=== PATIENT | female | born 1965 | race Caucasian/White ===

== ENCOUNTER 2016-11-16 11:32 | Inpatient (IN) | payer BC, OTHER ==
[2016-11-16] MEDS ORDERED: NITROGLYCERIN SL TABS 0.4 MG TAB SUBLINGUAL STA ×3 (11:56)
[2016-11-16] MEDS ORDERED: ASPIRIN 81 MG CHEW PO STA (11:56)
--- NOTE | 2016-11-16 11:57 | ED ---
General Adult HPI - General Chief complaint: Chest Pain Stated complaint: Chest pain Time Seen by Provider: 11/16/16 11:45 Source: patient, RN notes reviewed Mode of arrival: wheelchair Limitations: no limitations - History of Present Illness Initial comments: Patient is a pleasant 51-year-old female presenting to the emergency department complaining of chest discomfort. Patient has had intermittent symptoms over the past one to 2 weeks. Discomfort is sharp and usually only last for a couple of minutes. Discomfort has been fairly persistent for the past couple of hours now. Discomfort is 7/10. No associated dyspnea, nausea, or diaphoresis. There is some radiation towards the neck. No history of similar symptoms previously. Patient admits to feeling somewhat anxious regarding this. No leg pain or swelling. No cough or fever. - Related Data Home Medications Medication Instructions Recorded Confirmed Hydrocodone/Acetaminophen 1 tab PO TID 03/08/15 11/16/16 [Hydrocodon-Acetaminophn 10-325] Omeprazole 20 mg PO DAILY 03/08/15 11/16/16 Ascorbic Acid [Vitamin C] 500 mg PO DAILY 11/16/16 11/16/16 Lisinopril [Zestril] 20 mg PO DAILY 11/16/16 11/16/16 Meloxicam [Mobic] 15 mg PO DAILY 11/16/16 11/16/16 Godwin-3 Fatty Acids [Godwin-3] 1,000 mg PO DAILY 11/16/16 11/16/16 Pravastatin Sodium [Pravachol] 10 mg PO HS 11/16/16 11/16/16 Vitamin B Complex 1 cap PO DAILY 11/16/16 11/16/16 Vitamin E 100 unit PO DAILY 11/16/16 11/16/16 Previous Rx's Medication Instructions Recorded Aspirin 81 mg PO DAILY #90 chewable 03/11/15 Allergies Allergy/AdvReac Type Severity Reaction Status Date / Time codeine Allergy Dyspnea Verified 11/16/16 12:20 penicillin V Allergy Swelling Verified 11/16/16 12:20 Review of Systems ROS Statement: Those systems with pertinent positive or pertinent negative responses have been documented in the HPI. ROS Other: All systems not noted in ROS Statement are negative. Constitutional: Denies: fever Eyes: Denies: eye pain ENT: Denies: ear pain Respiratory: Denies: cough, dyspnea Cardiovascular: Reports: chest pain. Denies: palpitations Endocrine: Denies: fatigue Gastrointestinal: Denies: abdominal pain Genitourinary: Denies: dysuria Musculoskeletal: Denies: back pain Skin: Denies: rash Neurological: Denies: weakness Psychiatric: Reports: anxiety Past Medical History Past Medical History: No Reported History History of Any Multi-Drug Resistant Organisms: None Reported Past Surgical History: Cholecystectomy, Hysterectomy Past Anesthesia/Blood Transfusion Reactions: No Reported Reaction Past Psychological History: No Psychological Hx Reported Smoking Status: Current every day smoker Past Alcohol Use History: Occasional Past Drug Use History: None Reported - Past Family History Father Additional Family Medical History / Comment(s): triple bypass, stents Mother Family Medical History: Hypertension Brother(s) Additional Family Medical History / Comment(s): heart attacks, stents General Exam Limitations: no limitations General appearance: alert, in no apparent distress Head exam: Present: atraumatic Eye exam: Present: normal appearance, PERRL ENT exam: Present: normal oropharynx Neck exam: Present: normal inspection Respiratory exam: Present: normal lung sounds bilaterally. Absent: chest wall tenderness Cardiovascular Exam: Present: regular rate, normal rhythm Expanded Peripheral pulses: 2+: Radial (R), Radial (L), Posterior Tibialis (R), Posterior Tibialis (L) GI/Abdominal exam: Present: soft. Absent: tenderness Extremities exam: Present: normal inspection. Absent: pedal edema, calf tenderness Neurological exam: Present: alert Psychiatric exam: Present: normal affect, normal mood Skin exam: Absent: rash Course Vital Signs 11/16/16 11/16/16 11/16/16 11:33 12:23 12:54 Temperature 97.7 F Pulse Rate 79 91 72 Respiratory 17 18 18 Rate Blood Pressure 144/67 135/65 135/71 O2 Sat by Pulse 100 97 98 Oximetry EKG Findings - EKG Comments: EKG Findings:: Normal sinus rhythm at 65. VA 124. QRS 128. QT 438. QTC 455. Right axis. Right bundle branch block. No acute ST change. Medical Decision Making - Medical Decision Making Patient examined and resting comfortably in bed. Patient complains of headache following nitroglycerin. Patient states discomfort intermittent. Patient updated on results and plan. Case was earlier discussed with Dr. andrade, who will admit for [facility]. - Lab Data Result diagrams: 11/16/16 12:15 11/16/16 12:15 Lab Results 11/16/16 11/16/16 11/16/16 Range/Units 12:15 12:15 12:15 WBC 7.3 (3.8-10.6) k/uL RBC 4.68 (3.80-5.40) m/uL Hgb 14.1 (11.4-16.0) gm/dL Hct 41.8 (34.0-46.0) % MCV 89.3 (80.0-100.0) fL MCH 30.2 (25.0-35.0) pg MCHC 33.8 (31.0-37.0) g/dL RDW 13.0 (11.5-15.5) % Plt Count 240 (150-450) k/uL Neutrophils % 69 % Lymphocytes % 23 % Monocytes % 5 % Eosinophils % 1 % Basophils % 0 % Neutrophils # 5.1 (1.3-7.7) k/uL Lymphocytes # 1.6 (1.0-4.8) k/uL Monocytes # 0.4 (0-1.0) k/uL Eosinophils # 0.1 (0-0.7) k/uL Basophils # 0.0 (0-0.2) k/uL PT (9.0-12.0) sec INR (<1.1) APTT (22.0-30.0) sec D-Dimer (<0.60) mg/L FEU Sodium 143 (137-145) mmol/L Potassium 4.1 (3.5-5.1) mmol/L Chloride 106 (98-107) mmol/L Carbon Dioxide 23 (22-30) mmol/L Anion Gap 14 mmol/L BUN 12 (7-17) mg/dL Creatinine 0.47 L (0.52-1.04) mg/dL Est GFR (MDRD) Af Amer >60 (>60 ml/min/1.73 sqM) Est GFR (MDRD) Non-Af >60 (>60 ml/min/1.73 sqM) Glucose 148 H (74-99) mg/dL Calcium 9.8 (8.4-10.2) mg/dL Magnesium 2.0 (1.6-2.3) mg/dL Total Bilirubin 0.8 (0.2-1.3) mg/dL AST 15 (14-36) U/L ALT 34 (9-52) U/L Alkaline Phosphatase 75 (38-126) U/L Total Creatine Kinase 39 (30-135) U/L CK-MB (CK-2) <0.2 (0.0-2.4) ng/mL CK-MB (CK-2) Rel Index Troponin I <0.012 (0.000-0.034) ng/mL Total Protein 7.4 (6.3-8.2) g/dL Albumin 4.9 (3.5-5.0) g/dL 11/16/16 Range/Units 12:15 WBC (3.8-10.6) k/uL RBC (3.80-5.40) m/uL Hgb (11.4-16.0) gm/dL Hct (34.0-46.0) % MCV (80.0-100.0) fL MCH (25.0-35.0) pg MCHC (31.0-37.0) g/dL RDW (11.5-15.5) % Plt Count (150-450) k/uL Neutrophils % % Lymphocytes % % Monocytes % % Eosinophils % % Basophils % % Neutrophils # (1.3-7.7) k/uL Lymphocytes # (1.0-4.8) k/uL Monocytes # (0-1.0) k/uL Eosinophils # (0-0.7) k/uL Basophils # (0-0.2) k/uL PT 10.5 (9.0-12.0) sec INR 1.0 (<1.1) APTT 23.6 (22.0-30.0) sec D-Dimer 0.19 (<0.60) mg/L FEU Sodium (137-145) mmol/L Potassium (3.5-5.1) mmol/L Chloride (98-107) mmol/L Carbon Dioxide (22-30) mmol/L Anion Gap mmol/L BUN (7-17) mg/dL Creatinine (0.52-1.04) mg/dL Est GFR (MDRD) Af Amer (>60 ml/min/1.73 sqM) Est GFR (MDRD) Non-Af (>60 ml/min/1.73 sqM) Glucose (74-99) mg/dL Calcium (8.4-10.2) mg/dL Magnesium (1.6-2.3) mg/dL Total Bilirubin (0.2-1.3) mg/dL AST (14-36) U/L ALT (9-52) U/L Alkaline Phosphatase (38-126) U/L Total Creatine Kinase (30-135) U/L CK-MB (CK-2) (0.0-2.4) ng/mL CK-MB (CK-2) Rel Index Troponin I (0.000-0.034) ng/mL Total Protein (6.3-8.2) g/dL Albumin (3.5-5.0) g/dL - Radiology Data Radiology results: image reviewed (Chest x-ray shows no acute process.) Disposition Clinical Impression: Unstable angina pectoris Disposition: ADMITTED IP TO THIS HOSP
[2016-11-16 12:37] LABS: Basophils % (A) 0 %; CH 31.4; CHCM 35.4; Eosinophils # (A) 0.1 k/uL (0-0.7); Eosinophils % (A) 1 %; HCT 41.8 % (34.0-46.0); HDW 2.87; HGB 14.1 gm/dL (11.4-16.0); Luc # (Auto) 0.12; Luc % (Auto) 2; Lymphocytes # (A) 1.6 k/uL (1.0-4.8); Lymphocytes % (A) 23 %; MCH 30.2 pg (25.0-35.0); MCHC 33.8 g/dL (31.0-37.0); MCV 89.3 fL (80.0-100.0); Mean Platelet Volume 8.7; Monocytes # (A) 0.4 k/uL (0-1.0); Monocytes % (A) 5 %; Neutrophils # (A) 5.1 k/uL (1.3-7.7); Neutrophils % (A) 69 %; RBC 4.68 m/uL (3.80-5.40); WBC 7.3 k/uL (3.8-10.6); WBC (Perox) 7.25
--- NOTE | 2016-11-16 12:48 | XR ---
EXAMINATION TYPE: XR chest 2V DATE OF EXAM: 11/16/2016 12:44 PM COMPARISON: Prior chest x-ray March 07, 2015 HISTORY: Chest pain for 10 days. TECHNIQUE: Frontal and lateral views of the chest are obtained. FINDINGS: There is no focal air space opacity, pleural effusion, or pneumothorax seen. The cardiac silhouette size is within normal limits with atherosclerotic thoracic aorta. The osseous structures are intact. IMPRESSION: No acute pulmonary process. No significant change from prior.
[2016-11-16 12:50] LABS: ALT 34 U/L (9-52); AST 15 U/L (14-36); Alkaline Phosphatase 75 U/L (38-126); Anion Gap 14 mmol/L; Blood Urea Nitrogen 12 mg/dL (7-17); Calcium 9.8 mg/dL (8.4-10.2); Carbon Dioxide 23 mmol/L (22-30); Chloride 106 mmol/L (98-107); Glucose 148 mg/dL (74-99); Non-African American GFR(MDRD) >60 (>60 ml/min/1.73 sqM); Partial Thromboplastin Time 23.6 sec (22.0-30.0); Potassium 4.1 mmol/L (3.5-5.1); Prothrombin Time 10.5 sec (9.0-12.0); Sodium 143 mmol/L (137-145); Total Bilirubin 0.8 mg/dL (0.2-1.3); Total Protein 7.4 g/dL (6.3-8.2)
[2016-11-16] MEDS ORDERED: ACETAMINOPHEN TAB 500 MG TAB PO STA (12:52)
[2016-11-16 13:04] LABS: Creatine Kinase 39 U/L (30-135)
[2016-11-16 13:18] LABS: Creatine Kinase MB <0.2 ng/mL (0.0-2.4); Troponin I <0.012 ng/mL (0.000-0.034)
[2016-11-16] MEDS ORDERED: HEPARIN SODIUM,PORCINE 5,000 UNIT/ML 1 ML VIAL IV PRN (13:53)
[2016-11-16] MEDS ORDERED: NITROGLYCERIN SL TABS 0.4 MG TAB SUBLINGUAL PRN (13:53)
[2016-11-16] MEDS ORDERED: HEPARIN SODIUM,PORCINE 5,000 UNIT/ML 1 ML VIAL IV ONE (13:53)
[2016-11-16] MEDS ORDERED: HEPARIN SODIUM,PORCINE/D5W PMX 25,000 UNIT in DEXTROSE/WATER 1 500ML.BAG IV SCH (14:00)
[2016-11-16] MEDS ORDERED: ONDANSETRON 4 MG/2 ML VIAL IVP PRN (14:23)
[2016-11-16] MEDS: MORPHINE SULFATE 4 MG/ML SYRINGE IV STA ×2 (14:24→15:32)
[2016-11-16 18:49] LABS: Creatine Kinase 33 U/L (30-135)
[2016-11-16 19:05] LABS: Creatine Kinase MB <0.2 ng/mL (0.0-2.4); Troponin I <0.012 ng/mL (0.000-0.034)
[2016-11-16] MEDS: PRAVASTATIN SODIUM 20 MG TAB PO SCH (20:44)
[2016-11-16] MEDS: HYDROcodone/APAP 10-325MG 1 EACH TAB PO SCH ×2 (20:44→23:44)
[2016-11-16] MEDS: NITROGLYCERIN OINT 1 INCH/GM PACKET TOPICAL SCH (20:48)
--- NOTE | 2016-11-16 22:32 | CT ---
EXAMINATION TYPE: CT brain wo con DATE OF EXAM: 11/16/2016 10:27 PM COMPARISON: NONE HISTORY: Headache today. CT DLP: 1204.00 mGycm Automated exposure control for dose reduction was used. FINDINGS: Ventricles have normal size. There is no mass effect nor midline shift. There is no sign of intracran ial hemorrhage. There is mucosal thickening in the right maxillary sinus. Calvarium is intact. IMPRESSION: Right maxillary sinusitis. Negative CT scan of the brain.
[2016-11-16] MEDS: HYDROmorphone 1 MG/ML 1 ML SYRINGE IVP PRN (22:50)
[2016-11-17 00:43] LABS: Creatine Kinase 35 U/L (30-135)
[2016-11-17 00:55] LABS: Creatine Kinase MB <0.2 ng/mL (0.0-2.4); Troponin I <0.012 ng/mL (0.000-0.034)
[2016-11-17] MEDS: NITROGLYCERIN OINT 1 INCH/GM PACKET TOPICAL SCH ×2 (01:43→06:43)
[2016-11-17] MEDS: HYDROmorphone 1 MG/ML 1 ML SYRINGE IVP PRN ×5 (02:25→21:47)
[2016-11-17 07:29] LABS: Mean Platelet Volume 7.9
[2016-11-17 07:46] LABS: Cholesterol 190 mg/dL (<200); HDL Cholesterol 40 mg/dL (40-60); Triglycerides 305 mg/dL (<150)
[2016-11-17] MEDS ORDERED: ASPIRIN 325 MG TAB PO SCH (09:00)
[2016-11-17] MEDS ORDERED: NON-FORMULARY DRUG (Omega-3 Fatty Acids [Omega-3] 1,000 MG) PO SCH (09:00)
[2016-11-17] MEDS ORDERED: MELOXICAM 7.5 MG TAB PO SCH (09:00)
--- NOTE | 2016-11-17 11:08 | CONS ---
DATE OF CONSULTATION: CHIEF COMPLAINT: Chest pain. Drea is a 51-year-old lady who is admitted to the hospital with chest pain. She describes it as intermittent episodes of chest discomfort that has been going on for the last 2 weeks, on and off, sharp, lasts for a few minutes, 7 out of 10 in intensity at its worst. No associated dyspnea, diaphoresis or nausea. She is admitted to hospital and ruled out for myocardial infarction and at the time of my evaluation, her predominant symptoms seem to be headache. She had an EKG done that shows sinus rhythm with right bundle branch block, which is similar to her baseline EKG. Three sets of cardiac enzymes have been negative. LDL cholesterol is 89. Past medical history is significant for dyslipidemia, hypertension, gastroesophageal reflux disease. ALLERGIES: Allergic to CODEINE and PENICILLIN. Family history is negative for premature coronary artery disease. SOCIAL HISTORY: She denies smoking, EtOH abuse, or drug abuse. REVIEW OF SYSTEMS: HEENT: Unremarkable. CARDIAC: As described above. RESPIRATORY: Negative. GI: Negative. GENITOURINARY: Negative. ALLERGY/IMMUNOLOGY: Negative. SKIN: Negative. MUSCULOSKELETAL: Significant for arthritis. PSYCHOSOCIAL: Negative. ENDOCRINE: Negative. HEMATOLOGICAL: Negative. DERM: Negative. CONSTITUTIONAL: Negative. ONCOLOGICAL: Negative. The rest of the system review is not relevant. On exam, comfortable at rest. Vital signs are stable. There is no jugular venous distention. Chest exam reveals good air entry bilaterally. Heart exam reveals first and second heart sounds. No gallop. No murmur. Abdomen is soft, nontender. Exam of the extremities did not reveal any edema. Peripheral pulses are felt. COOK HELPER exam did not reveal focal neurological deficits. Labs show that 3 sets of cardiac enzymes are negative. EKG shows sinus rhythm with right bundle branch block. ASSESSMENT: 1. Chest pain. 2. Dyslipidemia. 3. Hypertension. 4. Headache. PLAN: Myocardial infarction is ruled out. Her EKG is similar to her baseline EKG. She had a cardiac catheterization 2 years ago that showed a 60% stenosis involving a diagonal branch. She has been on medical therapy since. Once her headache resolves, she will need a stress test and if the stress test is negative she can be discharged home. If it is abnormal, I am going to ask Dr. Sesay my partner to perform a cardiac catheterization on her. She was on heparin, this has since been stopped. I will obtain a 2-D echo.
[2016-11-17] MEDS: HYDROcodone/APAP 10-325MG 1 EACH TAB PO SCH ×2 (11:26→16:51)
[2016-11-17] MEDS: B COMPLEX-VIT C-VIT E-ZINC 1 EACH TAB PO SCH (11:27)
[2016-11-17] MEDS: ASCORBIC ACID 500 MG TAB PO SCH (11:27)
[2016-11-17] MEDS: PANTOPRAZOLE 40 MG TABLET PO SCH (11:28)
[2016-11-17] MEDS: VITAMIN E (DL,TOCOPHERYL ACET) 400 UNIT CAP PO SCH (11:29)
[2016-11-17] MEDS: LISINOPRIL 20 MG TAB PO SCH (11:29)
--- NOTE | 2016-11-17 11:55 | ECHOF ---
Referral Reason:cp MEASUREMENTS -------- HEIGHT: 180.3 cm WEIGHT: 82.1 kg BP: 111/55 IVSd: 1.1 cm (0.6 - 1.1) LVIDd: 3.0 cm (3.9 - 5.3) LVPWd: 1.1 cm (0.6 - 1.1) IVSs: 1.2 cm LVIDs: 1.6 cm LVPWs: 1.6 cm Ao Diam: 3.6 cm (2.0 - 3.7) AV Cusp: 2.0 cm (1.5 - 2.6) LA Diam: 3.0 cm (2.7 - 3.8) MV EXCURSION: 18.395 mm (> 18.000) MV EF SLOPE: 106 mm/s (70 - 150) EPSS: 1.4 cm MV E Baldo: 0.60 m/s MV DecT: 236 ms MV A Baldo: 0.60 m/s MV E/A Ratio: 1.00 RAP: 5.00 mmHg RVSP: 15.84 mmHg FINDINGS -------- Sinus rhythm. This was a technically adequate study. Left ventricular wall thickness is normal. Overall left ventricular systolic function is normal with, an EF between 55 - 60 %. The right ventricle is normal in size and function. The left atrium is normal in size. The right atrium is normal in size. The aortic valve was not well visualized. The mitral valve leaflets are mildly thickened. Mild mitral regurgitation is present. Mild tricuspid regurgitation present. The right ventricular systolic pressure, as measured by Doppler, is 15.84mmHg. Pulmonic valve appears structurally normal. The aortic root size is normal. The pericardium is normal. CONCLUSIONS -------- 1. Sinus rhythm. 2. Mild mitral regurgitation is present. 3. Mild tricuspid regurgitation present. 4. The right ventricular systolic pressure, as measured by Doppler, is 15.84mmHg. 5. Pulmonic valve appears structurally normal. 6. The aortic root size is normal. 7. The pericardium is normal. 8. This was a technically adequate study. 9. Left ventricular wall thickness is normal. 10. Overall left ventricular systolic function is normal with, an EF between 55 - 60 %. 11. The right ventricle is normal in size and function. 12. The left atrium is normal in size. 13. The right atrium is normal in size. 14. The aortic valve was not well visualized. 15. The mitral valve leaflets are mildly thickened. SCIENTIFIC PUBLICATIONS EDITOR: Prudence Johnson RDCS
[2016-11-17] MEDS ORDERED: IBUPROFEN 800 MG TAB PO STA (13:54)
[2016-11-17] MEDS: LEVOFLOXACIN 500 MG TAB PO SCH (15:10)
--- NOTE | 2016-11-17 16:47 | P.HPIM ---
History of Present Illness H&P Date: 11/17/16 Chief Complaint: Headache This is a 51-year-old female with past medical history noted below who presented to the emergency room with sudden onset headache that started all of a sudden when she woke up from her sleep. Patient's describing her headache as throbbing and 10 out of 10 in severity. She never had any problems with headache in the past and was never diagnosed with migraine headache. She said that her headache was a problem as she denies recent trauma or fall. She said that the light is bothering her. She was evaluated in the emergency room and a computed tomography scan of the brain showed no acute intracranial findings. Patient said that along with her headache she started having some chest pain and discomfort. She was evaluated in the emergency room and 12 leads EKG showed no acute ischemic changes. Serial troponin were negative. Patient had a left heart catheterization in March 2015 showing no significant coronary artery disease. She was managed medically. Review of Systems Review of system: 14 points review of systems were obtained and were negative except to what were mentioned in the HPI. 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 Past Drug Use History: None Reported - Past Family History Father Additional Family Medical History / Comment(s): triple bypass, stents Mother Family Medical History: Hypertension Brother(s) Additional Family Medical History / Comment(s): heart attacks, stents Medications and Allergies Home Medications Medication Instructions Recorded Confirmed Type Hydrocodone/Acetaminophen 1 tab PO TID 03/08/15 11/16/16 History [Hydrocodon-Acetaminophn 10-325] Omeprazole 20 mg PO DAILY 03/08/15 11/16/16 History Ascorbic Acid [Vitamin C] 500 mg PO DAILY 11/16/16 11/16/16 History Lisinopril [Zestril] 20 mg PO DAILY 11/16/16 11/16/16 History Meloxicam [Mobic] 15 mg PO DAILY 11/16/16 11/16/16 History [place]-3 Fatty Acids [Conowingo-3] 1,000 mg PO DAILY 11/16/16 11/16/16 History Pravastatin Sodium [Pravachol] 10 mg PO HS 11/16/16 11/16/16 History Vitamin B Complex 1 cap PO DAILY 11/16/16 11/16/16 History Vitamin E 100 unit PO DAILY 11/16/16 11/16/16 History Allergies Allergy/AdvReac Type Severity Reaction Status Date / Time codeine Allergy Dyspnea Verified 11/16/16 12:20 penicillin V Allergy Swelling Verified 11/16/16 12:20 Physical Exam Vitals: Vital Signs Temp Pulse Resp BP Pulse Ox 11/17/16 15:24 97.9 F 68 16 114/58 95 11/17/16 12:00 98.4 F 95 18 120/71 95 11/17/16 08:00 98.2 F 65 16 111/55 93 L 11/17/16 04:00 97.7 F 83 16 115/56 95 11/17/16 00:00 97.7 F 62 16 104/51 95 11/16/16 20:00 98.0 F 51 L 16 113/54 96 11/16/16 17:17 97.8 F 75 16 117/72 98 Intake and Output 11/17/16 11/17/16 11/17/16 06:59 14:59 22:59 Other: # Voids 1 Weight 82.282 kg General: The patient is awake and alert, in no distress, and does not appear acutely ill. Eye: extra-ocular movements are intact; there is normal conjunctiva bilaterally. . Neck: The neck is supple, there is no tenderness or JVD. Cardiovascular: Normal S1-S2, no S3-S4, no murmurs. Respiratory: Lungs clear to auscultation bilaterally with no wheezes rhonchi or rales. Gastrointestinal: Abdomen is soft, nontender, nondistended, with no organomegaly. . Musculoskeletal: Normal ROM, no tenderness, There is no pedal edema. Neurological: There are no obvious motor or sensory deficits. Speech is normal. Skin: Skin is warm and dry and no rashes or lesions are noted. Results CBC & Chem 7: 11/17/16 07:02 11/16/16 12:15 Labs: Abnormal Lab Results - Last 24 Hours (Table) 11/16/16 11/17/16 Range/Units 18:03 07:02 APTT 34.4 H (22.0-30.0) sec Triglycerides 305 H (<150) mg/dL Thrombosis Risk Factor Assmnt - Choose All That Apply Any of the Below Risk Factors Present?: Yes Each Factor Represents 1 point: Age 41-60 years, Obesity (BMI >25) Other Risk Factors: No Other congenital or acquired thrombophilia - If yes, enter type in comment: No Thrombosis Risk Factor Assessment Total Risk Factor Score: 2 Thrombosis Risk Factor Assessment Level: Low Risk Assessment and Plan Plan: 1. Intractable headache: Exact etiology unclear. Computed tomography scan of the brain showed no acute intracranial process. Blood pressure within acceptable range. I will consult neurology for further evaluation. Discontinue meloxicam and start Toradol IV every 6 hours. Continue Tylenol as needed. May consider follow-up computed tomography scan if not improving clinically. 2. Right maxillary sinusitis: Probably chronic. Started on Levaquin as patient has penicillin ALLERGY 3. Chest pain: Mostly atypical in nature. Twelve-lead EKG showed no acute ischemic changes. Seen and evaluated by cardiology. Troponins are negative. Echocardiogram showed preserved ejection fraction with no significant valvular abnormalities 4. Mixed hyperlipidemia 5. DVT prophylaxis with subcu heparin
[2016-11-17] MEDS: KETOROLAC 30 MG/ML 1 ML VIAL IVP SCH (17:51)
--- NOTE | 2016-11-17 19:09 | P.CNNES ---
History of Present Illness Consult date: 11/17/16 Reason for Consult: Patient with intractable headache. History of Present Illness: This patient is a 51-year-old right-handed white female who states that she awoke yesterday early in the morning with a severe intractable headache pain. She denies having any previous history of headaches or migraines. This is the first and headache that she is experienced since giving childbirth. Patient states the headache was intense and mostly in the bifrontal and bitemporal area. On a scale of 1-10 she rated the headache 10 over 10 in intensity. She did not expanse any nausea or vomiting. She decided to come to the emergency room as the headaches were sudden and quite intense. She was seen in the emergency room by Dr. Lazaro. She was sent for a computed tomography scan of the brain which was reported negative for any acute changes. She was admitted to hospital for further evaluation. Patient states she has no previous history of migraine headaches. There is no family history of aneurysms. She states the headache has remained intense despite being given some pain medications which include Dilantin and tramadol. The headaches have lessened only to some degree and is reported to be 6/10 in intensity. Due to the severity of the headache pain she was admitted to Hospital. The patient denies any previous history of severe headaches of this nature. She does mention that 2 months ago she was working and did have someone grab her neck while working accidentally. She did have a diagnosis of cervical strain at that time. She denies any weakness in the arms or radiating pain down either arm at this time. Patient is now admitted and neurology has been consulted for further evaluation and recommendations. Review of Systems Constitutional: Denies chills, Denies fever Eyes: denies blurred vision, denies pain Ears, nose, mouth and throat: Denies headache, Denies sore throat Cardiovascular: Denies chest pain, Denies shortness of breath Respiratory: Denies cough Gastrointestinal: Denies abdominal pain, Denies diarrhea, Denies nausea, Denies vomiting Genitourinary: Denies dysuria, Denies hematuria Musculoskeletal: Denies myalgias Integumentary: Denies pruritus, Denies rash Neurological: Reports headaches, Denies numbness, Denies weakness Psychiatric: Denies anxiety, Denies depression Endocrine: Denies fatigue, Denies weight change Past Medical History Past Medical History: Chest Pain / Angina, Hyperlipidemia, Hypertension, Osteoarthritis (OA) Additional Past Medical History / Comment(s): "ARTHIRTIS IN MY BACK", "I HAD 1 LOOSE STOOL TODAY" History of Any Multi-Drug Resistant Organisms: None Reported Past Surgical History: Cholecystectomy, Heart Catheterization, Hysterectomy, Tonsillectomy Additional Past Surgical History / Comment(s): CYST REMOVED FROM ABD DURING HYSTERECTOMY SX Past Anesthesia/Blood Transfusion Reactions: No Reported Reaction Past Psychological History: No Psychological Hx Reported Smoking Status: Current every day smoker Past Alcohol Use History: Occasional Additional Past Alcohol Use History / Comment(s): STARTED SMOKING AT AGE 15, SMOKES 1/2 PPD. Past Drug Use History: None Reported - Past Family History Father Additional Family Medical History / Comment(s): triple bypass, stents Mother Family Medical History: Hypertension Brother(s) Additional Family Medical History / Comment(s): heart attacks, stents Medications and Allergies Home Medications Medication Instructions Recorded Confirmed Type Hydrocodone/Acetaminophen 1 tab PO TID 03/08/15 11/16/16 History [Hydrocodon-Acetaminophn 10-325] Omeprazole 20 mg PO DAILY 03/08/15 11/16/16 History Ascorbic Acid [Vitamin C] 500 mg PO DAILY 11/16/16 11/16/16 History Lisinopril [Zestril] 20 mg PO DAILY 11/16/16 11/16/16 History Meloxicam [Mobic] 15 mg PO DAILY 11/16/16 11/16/16 History Verona-3 Fatty Acids [Verona-3] 1,000 mg PO DAILY 11/16/16 11/16/16 History Pravastatin Sodium [Pravachol] 10 mg PO HS 11/16/16 11/16/16 History Vitamin B Complex 1 cap PO DAILY 11/16/16 11/16/16 History Vitamin E 100 unit PO DAILY 11/16/16 11/16/16 History Allergies Allergy/AdvReac Type Severity Reaction Status Date / Time codeine Allergy Dyspnea Verified 11/16/16 12:20 penicillin V Allergy Swelling Verified 11/16/16 12:20 Physical Examination - Vital Signs Vital Signs: Vital Signs Temp Pulse Resp BP Pulse Ox 11/17/16 15:24 97.9 F 68 16 114/58 95 11/17/16 12:00 98.4 F 95 18 120/71 95 11/17/16 08:00 98.2 F 65 16 111/55 93 L 11/17/16 04:00 97.7 F 83 16 115/56 95 11/17/16 00:00 97.7 F 62 16 104/51 95 11/16/16 20:00 98.0 F 51 L 16 113/54 96 Intake and Output 11/17/16 11/17/16 11/17/16 06:59 14:59 22:59 Other: # Voids 1 Weight 82.282 kg - Constitutional General appearance: average body habitus, cooperative - EENT EENT: mucous membranes moist - Respiratory Respiratory: lungs clear, normal breath sounds - Cardiovascular Cardiovascular: regular rate, normal S1, normal S2 Extremities: no peripheral edema bilaterally - Gastrointestinal Gastrointestinal: normoactive bowel sounds - Integumentary Integumentary: normal (Using this tablet only reason I think he) - Neurologic Cranial nerve examination: PERRL, EOMI, VFF, V1/V2/V3 grossly intact, tongue midline, intact gag reflex, intact corneal reflex, normal palatal elevation Speech examination: intact Sensorimotor examination: intact Detailed motor examination: grossly full strength in all extremities Motor examination - right side: 5/5: biceps, triceps, wrist flexion, wrist extension, lunch cook, hip flexors, knee extensors, dorsiflexion, toe extension (EHL) , plantarflexion Motor examination - left side: 5/5: biceps, triceps, wrist flexion, wrist extension, lunch cook, hip flexors, knee extensors, dorsiflexion, toe extension (EHL) , plantarflexion Detailed sensory examination: intact Reflex and gait examination: intact Reflexes: 1+: ankle, bicep, knee, tricep - Musculoskeletal Musculoskeletal: no pain - Psychiatric Psychiatric: mood/affect appropriate, cooperative Results - Laboratory Findings CBC and BMP: 11/17/16 07:02 11/16/16 12:15 Abnormal Lab Findings: Abnormal Labs 11/16/16 11/17/16 18:03 07:02 APTT 34.4 H Triglycerides 305 H Assessment and Plan (1) Occipital neuritis Status: Acute Code(s): M54.81 - OCCIPITAL NEURALGIA (2) Unstable angina pectoris Status: Acute Code(s): I20.0 - UNSTABLE ANGINA Plan: This patient is a 51-year-old female admitted to Hospital intractable headache pain. Neurology was consult for further evaluation. Neurological examination reveals the patient to have bilateral occipital neuritis. We have recommended the patient undergo a occipital nerve block procedure by anesthesia. We would also recommend MRI/MRA of the brain to be done. Computed tomography scan of the brain was reported negative for any acute changes. Patient is advised to apply moist heat to the head and neck region up upon discharge. We will await the occipital nerve block procedure to be done and then she may follow-up with cardiology is recommended. Her overall prognosis at this time remains guarded. Time with Patient: Greater than 30
[2016-11-17] MEDS: ACETAMINOPHEN TAB 325 MG TAB PO PRN (23:04)
[2016-11-18] MEDS: PRAVASTATIN SODIUM 20 MG TAB PO SCH ×2 (00:50→21:59)
[2016-11-18] MEDS: HYDROmorphone 1 MG/ML 1 ML SYRINGE IVP PRN ×6 (00:54→22:00)
[2016-11-18] MEDS: HEPARIN SODIUM,PORCINE 5,000 UNIT/ML 1 ML VIAL SQ SCH ×3 (00:54→21:59)
[2016-11-18] MEDS: KETOROLAC 30 MG/ML 1 ML VIAL IVP SCH ×4 (00:58→18:35)
[2016-11-18] MEDS: HYDROcodone/APAP 10-325MG 1 EACH TAB PO SCH ×4 (00:58→21:59)
[2016-11-18 08:01] LABS: Anion Gap 10 mmol/L; Blood Urea Nitrogen 13 mg/dL (7-17); Calcium 9.5 mg/dL (8.4-10.2); Carbon Dioxide 29 mmol/L (22-30); Chloride 103 mmol/L (98-107); Glucose 145 mg/dL (74-99); Non-African American GFR(MDRD) >60 (>60 ml/min/1.73 sqM); Phosphorous 4.6 mg/dL (2.5-4.5); Potassium 4.5 mmol/L (3.5-5.1); Sodium 142 mmol/L (137-145)
[2016-11-18 08:54] LABS: Basophils % (A) 0 %; CH 31.1; CHCM 33.8; Eosinophils # (A) 0.1 k/uL (0-0.7); Eosinophils % (A) 2 %; HCT 41.1 % (34.0-46.0); HDW 2.82; HGB 13.7 gm/dL (11.4-16.0); Luc # (Auto) 0.24; Luc % (Auto) 4; Lymphocytes # (A) 1.9 k/uL (1.0-4.8); Lymphocytes % (A) 34 %; MCH 30.8 pg (25.0-35.0); MCHC 33.3 g/dL (31.0-37.0); MCV 92.5 fL (80.0-100.0); Mean Platelet Volume 8.4; Monocytes # (A) 0.4 k/uL (0-1.0); Monocytes % (A) 7 %; Neutrophils % (A) 53 %; RBC 4.44 m/uL (3.80-5.40); WBC 5.7 k/uL (3.8-10.6); WBC (Perox) 5.78
[2016-11-18] MEDS ORDERED: BUPIVACAINE (PF) 0.25% 30 ML VIAL ONE (10:10)
[2016-11-18] MEDS ORDERED: TRIAMCINOLONE ACETONIDE 40 MG/ML 1 ML VIAL ONE (10:10)
[2016-11-18] MEDS ORDERED: MIDAZOLAM 2 MG/2 ML VIAL IVP ONE ×2 (10:30→10:33)
[2016-11-18] MEDS ORDERED: fentaNYL (PF) 50 MCG/ML 2 ML AMP IV ONE ×3 (10:30→10:33)
--- NOTE | 2016-11-18 12:11 | P.PCN ---
Date of Procedure: 11/18/16 Procedure(s) Performed: Pre-operative diagnosis: 1- Bilateral occipital neuralgea Post Operative Diagnosis 1- Bilateral occipital neuralgea Procedure: 1- Bilateral occipital nerve block ANESTHESIA: Conscious sedation with Versed. 2 mg and fentanyl 100 micrograms EBL: Minimal PROCEDURE INDICATION: The patient with neck pain and headache secondary to occipital neuralgea unresponsive to conservative treatments. The patient was admitted to [facility] with severe headache, and she was evaluated by a neurologist and he recommended occipital nerve block PROCEDURE DESCRIPTION / TECHNIQUE: The patient was seen and identified in the preoperative area. Risks, benefits, complications, and alternatives were discussed with the patient, the patient agreed to proceed with the procedure and signed the consent. IV was started. Vital signs remained stable throughout the procedure. Patient was taken to the OR and time out was completed. The patient was placed in the pron (sitting ) position on the procedure table. A pillow was placed under the patients chest to increase the cervical interlaminar space. The cervical area and right occiptial area were prepped with alcohol swab. Critical pause was taken. Vital signs were closely monitored during the procedure. Conscious sedation was used during the procedure to decrease patients anxiety. The right occiptal ridge was palpated and was then accessed with a 25 G needle. Then after negative aspiration, 6 ml of the block solution containing 6 ml of PF Buvicaine 0.5% and Kenalog 40 mg was injected. Needle was withdrawn intact. Then the same procedure was repeated on the left side and related the left occipital nerve block, after negative aspiration 6 mL of the block solution containing ropivacaine 0.5% and 40 mg of Kenalog injected after negative aspiration Patient tolerated procedure well. No acute complications. She will follow up with the pain clinic in 2 weeks
[2016-11-18] MEDS: ACETAMINOPHEN TAB 325 MG TAB PO PRN (13:07)
--- NOTE | 2016-11-18 13:43 | P.PN ---
Subjective Patient continues to have severe headache today. She just returned to her room after getting an occipital nerve block. She still rating her headache as 10 out of 10. Objective - Vital Signs Vital signs: Vital Signs Temp 98.5 F 11/18/16 11:15 Pulse 60 11/18/16 11:45 Resp 16 11/18/16 11:15 BP 111/56 11/18/16 11:45 Pulse Ox 98 11/18/16 11:45 Intake & Output 11/17/16 11/18/16 11/18/16 18:59 06:59 18:59 Other: Voiding Method Toilet Toilet # Voids 1 - Exam General: The patient is awake and alert, in no distress Eye: there is normal conjunctiva bilaterally. Neck: The neck is supple, there is no JVD. Cardiovascular: Normal S1-S2, no S3-S4, no murmurs. Respiratory: Lungs clear to auscultation bilaterally Gastrointestinal: Abdomen is soft, nontender Musculoskeletal: There is no pedal edema. Neurological:. Speech is normal. Skin: Skin is warm and dry - Labs CBC & Chem 7: 11/18/16 07:22 11/18/16 07:22 Labs: Abnormal Lab Results - Last 24 Hours (Table) 11/18/16 Range/Units 07:22 Glucose 145 H (74-99) mg/dL Phosphorus 4.6 H (2.5-4.5) mg/dL Assessment and Plan Plan: 1. Intractable headache: Exact etiology unclear. Patient was seen and evaluated by neurology and was thought to have occipital neuritis. She underwent occipital nerve block by pain services this morning. She is scheduled for an MRI of the brain this afternoon. Computed tomography scan of the brain showed no acute intracranial process. Blood pressure within acceptable range. 2. Right maxillary sinusitis: Probably chronic. Started on Levaquin as patient has penicillin ALLERGY 3. Chest pain: Mostly atypical in nature. Twelve-lead EKG showed no acute ischemic changes. Seen and evaluated by cardiology. Troponins are negative. Echocardiogram showed preserved ejection fraction with no significant valvular abnormalities 4. Mixed hyperlipidemia 5. DVT prophylaxis with subcu heparin Plan for today: Increase Dilaudid to 1 mg as needed. Continue Tylenol and Toradol. Awaiting MRI this afternoon. Appreciate neurology recommendations.
--- NOTE | 2016-11-18 14:58 | MR ---
EXAMINATION TYPE: MR angio head wo con DATE OF EXAM: 11/18/2016 2:37 PM COMPARISON: NONE HISTORY: Headaches CONTRAST: None TECHNIQUE: Multiplanar multiecho imaging on a 3.0 [place] magnet is performed through the [place]. 3-D [id number] imaging is performed. Source images are reviewed on the computer in the axi al plane. Reconstructed images rotating on the computer are reviewed. FINDINGS: The internal carotid arteries bifurcate normally into A1 and M1 segments. The A2 segments are normal. Middle cerebral artery branches are normal. Anterior communicating artery is patent. The right posterior communicating artery is patent. The left posterior communicating artery is absent. Vertebrobasilar arteries within the [id number] are normal. Posterior cerebral vasculature is norm al. No suspicious aneurysm or aneurysmal dilatation is evident. No obstructions are identified. No significant flow-limiting stenosis is evident. IMPRESSIONS: 1. NORMAL MRA [place] OF [place].
--- NOTE | 2016-11-18 15:03 | MR ---
EXAMINATION TYPE: MR brain wo con DATE OF EXAM: 11/18/2016 2:50 PM COMPARISON: NONE HISTORY: Headaches, intractable CONTRAST: Performed utilizing 0 mL intravenous MultiHance gadolinium contrast. TECHNIQUE: Multiplanar, multiecho imaging on a 3.0 [place] magnet is performed through the brain. Stud y is not performed within 24 hours of arrival to the hospital. The craniovertebral junction is normal. The pituitary is normal. Diffusion-weighted imaging is performed. Left vertex along the superior gyrus of the right frontal lobe is a small area of hyperintensity. Sma ll cortical ischemic change could be present at this location. Series 305, image 216 Signal within the brain on T2 and inversion recovery weighted sequences appears unremarkable. Ventricles and sulci are appropriate for the patient age. Mucosal thickening is within the right maxillary sinus. Paranasal sinus is thickening is within ethmo id air cells IMPRESSIONS: 1. Punctate hyperintensity at the left vertex gyrus and diffusion weighted imaging could indicate a a cute ischemic area. This is not identified on additional pulse sequences.
[2016-11-18] MEDS: B COMPLEX-VIT C-VIT E-ZINC 1 EACH TAB PO SCH (15:08)
[2016-11-18] MEDS: ASCORBIC ACID 500 MG TAB PO SCH (15:08)
[2016-11-18] MEDS: ASPIRIN 81 MG CHEW PO SCH (15:08)
[2016-11-18] MEDS: PANTOPRAZOLE 40 MG TABLET PO SCH (15:09)
[2016-11-18] MEDS: VITAMIN E (DL,TOCOPHERYL ACET) 400 UNIT CAP PO SCH (15:09)
[2016-11-18] MEDS: LISINOPRIL 20 MG TAB PO SCH (15:09)
[2016-11-18] MEDS: LEVOFLOXACIN 500 MG TAB PO SCH (15:12)
--- NOTE | 2016-11-18 18:30 | P.PN ---
Subjective This patient is a 51-year-old right-handed white female who was seen yesterday for intractable headache pain. She was found to have evidence of bilateral occipital neuritis. She was sent for a occipital nerve block procedure today which was performed by anesthesia this morning. She still continues to complain of severe occipital headache pain. She was sent for MRI of the brain which was completed today. MRI reveals a punctate hyperintensity in the left vertex gyrus. This was seen on diffusion-weighted imaging suggesting possible acute ischemia. We will obtain a carotid Doppler ultrasound to further evaluate for carotid artery stenosis. She is to continue on 1 aspirin daily. We will review the MRI films with radiology. Her current headache symptoms are not related to this isolated finding on the MRI at this time. We once again assured the patient that the MRA failed to reveal any evidence for cerebral aneurysm. No other abnormalities were seen. Patient also underwent MRA [place] which came back normal with no evidence of cerebral aneurysm. Results of the MRI/MRA were discussed today with the patient. She is still requiring Dilaudid for headache pain management. We may consider alternative medications depending on how the nerve block procedure goals in terms of improvement with headache pain. We will wait for 24 hours to see if the nerve block does reduce the degree of pain. It may take one to 2 days to see the maximum effect of this procedure. Patient may continue to apply moist heat or ice packs to the back of the neck following the procedure today. We will continue close neurological follow-up with the patient. Her overall prognosis at this time remains guarded. Objective - Vital Signs Vital signs: Vital Signs Temp 98.5 F 11/18/16 11:15 Pulse 60 11/18/16 11:45 Resp 16 11/18/16 11:15 BP 111/56 11/18/16 11:45 Pulse Ox 98 11/18/16 11:45 Intake & Output 11/17/16 11/18/16 11/18/16 18:59 06:59 18:59 Other: Voiding Method Toilet Toilet # Voids 1 - Exam Physical examination: PHYSICAL EXAMINATION: Patient is resting comfortably in bed. VITAL SIGNS: Blood pressure is [111/56]. Heart rate is [60]. Respiration is [16] . Temperature is [98.5]. HEENT: Head is atraumatic, neck is supple, there were no carotid bruits. CHEST: Lungs are clear to auscultation and percussion. CARDIAC: S1, S2 normal rate and rhythm. There is no murmur. ABDOMEN: Soft and nontender. Bowel sounds are present. EXTREMITIES: There is no pedal edema. Peripheral pulses are present. Neurological examination: Patient has a nonfocal neurological exam. - Labs CBC & Chem 7: 11/18/16 07:22 11/18/16 07:22 Labs: Abnormal Lab Results - Last 24 Hours (Table) 11/18/16 Range/Units 07:22 Glucose 145 H (74-99) mg/dL Phosphorus 4.6 H (2.5-4.5) mg/dL Assessment and Plan (1) Occipital neuritis Status: Acute Code(s): M54.81 - OCCIPITAL NEURALGIA (2) Unstable angina pectoris Status: Acute Code(s): I20.0 - UNSTABLE ANGINA Plan: This patient is a 51-year-old female admitted to Hospital intractable headache pain. Neurology was consult for further evaluation. Neurological examination reveals the patient to have bilateral occipital neuritis. We have recommended the patient undergo a occipital nerve block procedure by anesthesia. We would also recommend MRI/MRA of the brain to be done. Computed tomography scan of the brain was reported negative for any acute changes. Patient is advised to apply moist heat to the head and neck region up upon discharge. We will await the occipital nerve block procedure to be done and then she may follow-up with cardiology is recommended. Patient underwent occipital nerve block procedure today by anesthesia. She has not appreciated much improvement with the headache pain. We will wait for 24 hours to see if the degree of pain is substantially improved. We did review the results of her MRI and MRA of the brain today with the patient in detail. We will obtain a carotid Doppler ultrasound to rule out any carotid artery disease. MRI of the brain revealed a nonspecific punctate hyperintensity in the left vertex of the frontal lobe. This nonspecific but suggest possibility of ischemia. She is to continue on 1 aspirin daily. This finding is not the cause of her headaches at this time. We will continue close monitoring of the patient. Her headaches still seem to be bifrontal in location. We will wait to see if there is improvement in 24 hours following the nerve block procedure for this patient. Her overall prognosis at this time remains guarded. Her overall prognosis at this time remains guarded.
--- NOTE | 2016-11-18 21:28 | EEG ---
DATE OF SERVICE: 11/18/2016 INDICATION FOR EXAMINATION: This patient is a 51-year-old female being evaluated for intractable headache pain. AGE: 51 years. EEG FINDINGS: A routine 21-channel awake digital EEG recording was accomplished utilizing the 10-20 international system with bipolar and referential montages. The background activity in the most alert resting state consists of a low to medium amplitude, fairly well developed and well sustained 8 Hz activity over the posterior head regions. This posterior rhythm attenuates to eye opening. There is a small amount of low amplitude 18-20 Hz beta activity seen maximally over the anterior head regions. Muscle and movement artifact was observed on a few occasions during the tracing. Hyperventilation was not performed. Photic stimulation at flash frequencies of 2-30 Hz produced a good symmetrical occipital driving response. No epileptiform discharges were seen. IMPRESSION: This EEG is normal for the patient's age. The EEG failed to reveal any focal, lateralized or epileptiform abnormalities. Clinical correlation is recommended.
--- NOTE | 2016-11-18 22:21 | US ---
EXAMINATION TYPE: US carotid duplex BILAT DATE OF EXAM: 11/18/2016 6:31 PM COMPARISON: Carotid Doppler ultrasound March 09, 2015 CLINICAL HISTORY: left frontal lobe infarct.. EXAM MEASUREMENTS: RIGHT: Peak Systolic Velocity (PSV) cm/sec ----- Right CCA: 111.3 ----- Right ICA: 106.4 ----- Right ECA: 76.2 ICA/CCA ratio: 1.0 RIGHT: End Diastole cm/sec ----- Right CCA: 19.2 ----- Right ICA: 32.1 ----- Right ECA: 11.5 LEFT: Peak Systolic Velocity (PSV) cm/sec ----- Left CCA: 84.2 ----- Left ICA: 90.0 ----- Left ECA: 121.0 ICA/CCA ratio: 1.1 LEFT: End Diastole cm/sec ----- Left CCA: 14.4 ----- Left ICA: 20.8 ----- Left ECA: 9.5 VERTEBRALS (direction of flow): Right Vertebral: Antegrade Left Vertebral: Antegrade IMPRESSION: MINIMAL PLAQUE VISUALIZED BILATERALLY, NO ELEVATED VELOCITIES SEEN, NO SIGNIFICANT STENOSIS.
[2016-11-19] MEDS: KETOROLAC 30 MG/ML 1 ML VIAL IVP SCH ×4 (00:36→17:25)
[2016-11-19] MEDS: ACETAMINOPHEN TAB 325 MG TAB PO PRN (00:42)
[2016-11-19] MEDS: HYDROmorphone 1 MG/ML 1 ML SYRINGE IVP PRN ×7 (01:31→22:44)
[2016-11-19 07:10] LABS: Basophils % (A) 0 %; CH 31.4; CHCM 34.5; Eosinophils # (A) 0.1 k/uL (0-0.7); Eosinophils % (A) 1 %; HCT 40.3 % (34.0-46.0); HDW 2.83; HGB 13.5 gm/dL (11.4-16.0); Luc # (Auto) 0.27; Luc % (Auto) 4; Lymphocytes # (A) 1.7 k/uL (1.0-4.8); Lymphocytes % (A) 24 %; MCH 30.5 pg (25.0-35.0); MCHC 33.4 g/dL (31.0-37.0); MCV 91.3 fL (80.0-100.0); Mean Platelet Volume 8.1; Monocytes # (A) 0.5 k/uL (0-1.0); Monocytes % (A) 6 %; Neutrophils # (A) 4.6 k/uL (1.3-7.7); Neutrophils % (A) 64 %; RBC 4.42 m/uL (3.80-5.40); RDW 12.9 % (11.5-15.5); WBC 7.2 k/uL (3.8-10.6); WBC (Perox) 8.04
[2016-11-19 07:27] LABS: Anion Gap 12 mmol/L; Blood Urea Nitrogen 18 mg/dL (7-17); Calcium 9.8 mg/dL (8.4-10.2); Carbon Dioxide 27 mmol/L (22-30); Chloride 103 mmol/L (98-107); Glucose 133 mg/dL (74-99); Magnesium 2.2 mg/dL (1.6-2.3); Non-African American GFR(MDRD) >60 (>60 ml/min/1.73 sqM); Phosphorous 4.6 mg/dL (2.5-4.5); Sodium 142 mmol/L (137-145)
[2016-11-19] MEDS: HYDROcodone/APAP 10-325MG 1 EACH TAB PO SCH ×3 (09:07→20:42)
[2016-11-19] MEDS: HEPARIN SODIUM,PORCINE 5,000 UNIT/ML 1 ML VIAL SQ SCH ×2 (09:49→20:40)
[2016-11-19] MEDS: B COMPLEX-VIT C-VIT E-ZINC 1 EACH TAB PO SCH (09:49)
[2016-11-19] MEDS: LISINOPRIL 20 MG TAB PO SCH (09:49)
[2016-11-19] MEDS: VITAMIN E (DL,TOCOPHERYL ACET) 400 UNIT CAP PO SCH (09:49)
[2016-11-19] MEDS: ASPIRIN 81 MG CHEW PO SCH (09:49)
[2016-11-19] MEDS: ASCORBIC ACID 500 MG TAB PO SCH (09:50)
[2016-11-19] MEDS: PANTOPRAZOLE 40 MG TABLET PO SCH (09:50)
--- NOTE | 2016-11-19 10:23 | CONS ---
Drea is a 51-year-old lady who was admitted to hospital with chest pain. The chest pain resolved, but since admission, her predominant problem had been headache and she is currently being investigated and treated for the same. I am re-evaluating her today. She is still chest pain free, continues to have headaches that are being managed by primary. On exam, her vital signs are stable. Chest is clear to auscultation and percussion. Heart reveals first and second heart sounds. No gallop. Extremities did not reveal edema. Peripheral pulses are felt. ASSESSMENT: 1. Chest pain, now resolved. 2. Dyslipidemia. 3. Headaches. PLAN: From my standpoint, she is stable and I am going to see her on an as-needed basis. I will arrange followup with me on discharge and consider an outpatient stress test. Thank you for giving us the privilege to participate in the care of this pleasant lady.
[2016-11-19] MEDS ORDERED: BUTALB/APAP/CAFF 50-325-40MG TAB PO PRN (11:13)
--- NOTE | 2016-11-19 14:30 | P.PN ---
Subjective Patient presented with headache and chest pain. Patient still complaining of headache she did have subtle nerve block with no improvement. Headache is in the top of the head. She has sensitivity to light and sound. Decreased appetite. Denies any vision changes. Denies any nausea or vomiting. Denies any chest pain or shortness of breath. Denies any difficulty urinating. She has a bowel movement changes. Patient is still complaining of some sinus congestion and runny nose Objective - Vital Signs Vital signs: Vital Signs Temp 97.5 F L 11/19/16 12:45 Pulse 61 11/19/16 12:45 Resp 18 11/19/16 12:45 BP 135/71 11/19/16 12:45 Pulse Ox 98 11/19/16 12:45 Intake & Output 11/18/16 11/19/16 11/19/16 18:59 06:59 18:59 Intake Total 1500 Balance 1500 Intake: Oral 1500 Other: Voiding Method Toilet Toilet # Voids 2 - Exam Head normocephalic Neck supple Lungs clear to auscultation bilaterally no wheezing or crackles Heart regular rate and rhythm S1-S2, no rub or gallop Abdomen is soft nontender nondistended positive bowel sounds no hepatosplenomegaly Extremities no edema Neuro alert and orientated to 3 - Labs CBC & Chem 7: 11/19/16 06:48 11/19/16 06:48 Labs: Abnormal Lab Results - Last 24 Hours (Table) 11/19/16 Range/Units 06:48 BUN 18 H (7-17) mg/dL Glucose 133 H (74-99) mg/dL Phosphorus 4.6 H (2.5-4.5) mg/dL Assessment and Plan Plan: 1. Intractable headache: Exact etiology unclear. Patient was seen and evaluated by neurology and was thought to have occipital neuritis. She underwent occipital nerve block by pain services . However, continues to have headache on the top of her head. Computed tomography scan of the brain showed no acute intracranial process. Did refill right maxillary sinusitis. Blood pressure within acceptable range. MRI of the brain shows a possible acute ischemic area. She was placed on aspirin. Case discussed with neurology. This ischemic changes would not cause her headache. The recommending to add Fioricet and have patient reevaluated by anesthesia. 2. Right maxillary sinusitis: Started on Levaquin as patient has penicillin ALLERGY. We'll add Flonase and Claritin-D to see if this will help patient's symptoms. 3. Chest pain: Mostly atypical in nature. Twelve-lead EKG showed no acute ischemic changes. Seen and evaluated by cardiology. Troponins are negative. Echocardiogram showed preserved ejection fraction with no significant valvular abnormalities 4. Mixed hyperlipidemia 5. DVT prophylaxis with subcu heparin 6. CVA on MRI of the brain. Continue with aspirin. Carotid was negative for any hemodynamics stenosis. Echo showed a normal EF with no valvular abnormality. Continue with aspirin. Patient evaluated by neurology
--- NOTE | 2016-11-19 14:40 | P.PN ---
Subjective This patient is a 51-year-old right-handed white female who was seen yesterday for intractable headache pain. She was found to have evidence of bilateral occipital neuritis. She was sent for a occipital nerve block procedure today which was performed by anesthesia this morning. She still continues to complain of severe occipital headache pain. She was sent for MRI of the brain which was completed today. MRI reveals a punctate hyperintensity in the left vertex gyrus. This was seen on diffusion-weighted imaging suggesting possible acute ischemia. We will obtain a carotid Doppler ultrasound to further evaluate for carotid artery stenosis. She is to continue on 1 aspirin daily. We will review the MRI films with radiology. Her current headache symptoms are not related to this isolated finding on the MRI at this time. We once again assured the patient that the MRA failed to reveal any evidence for cerebral aneurysm. No other abnormalities were seen. Patient also underwent MRA [place] of [place] which came back normal with no evidence of cerebral aneurysm. Results of the MRI/MRA were discussed today with the patient. She is still requiring Dilaudid for headache pain management. We may consider alternative medications depending on how the nerve block procedure goals in terms of improvement with headache pain. We will wait for 24 hours to see if the nerve block does reduce the degree of pain. It may take one to 2 days to see the maximum effect of this procedure. Patient may continue to apply moist heat or ice packs to the back of the neck following the procedure today. The patient was transferred to the selective care floor today. She continues to have moderate severe headache pain. On examination she still does have some tenderness in the suboccipital region bilaterally. We did discuss her case today with anesthesia. We've asked the anesthesiologist Dr. Carlos to reevaluate her today. He also recommends possible cervicogenic injections for further assessment. We will obtain an MRI of the cervical spine to further evaluate for facet arthropathy. Patient was given fears that today for headache management which did not give much relief. We'll await further reevaluation from Dr. Carlos. We will continue close neurological follow-up with the patient. Her overall prognosis at this time remains guarded. Objective - Vital Signs Vital signs: Vital Signs Temp 97.5 F L 11/19/16 12:45 Pulse 61 11/19/16 12:45 Resp 18 11/19/16 12:45 BP 135/71 11/19/16 12:45 Pulse Ox 98 11/19/16 12:45 Intake & Output 11/18/16 11/19/16 11/19/16 18:59 06:59 18:59 Intake Total 1500 250 Balance 1500 250 Intake: Oral 1500 250 Other: Voiding Method Toilet Toilet # Voids 2 - Exam Physical examination: PHYSICAL EXAMINATION: Patient is resting comfortably in bed. VITAL SIGNS: Blood pressure is [135/71]. Heart rate is [61]. Respiration is [18] . Temperature is [97.5]. HEENT: Head is atraumatic, neck is supple, there were no carotid bruits. CHEST: Lungs are clear to auscultation and percussion. CARDIAC: S1, S2 normal rate and rhythm. There is no murmur. ABDOMEN: Soft and nontender. Bowel sounds are present. EXTREMITIES: There is no pedal edema. Peripheral pulses are present. Neurological examination: Patient has a nonfocal neurological exam. Patient continues to demonstrate evidence of bilateral suboccipital tenderness on palpation. She rates the pain 05/19. - Labs CBC & Chem 7: 11/19/16 06:48 11/19/16 06:48 Labs: Abnormal Lab Results - Last 24 Hours (Table) 11/19/16 Range/Units 06:48 BUN 18 H (7-17) mg/dL Glucose 133 H (74-99) mg/dL Phosphorus 4.6 H (2.5-4.5) mg/dL Assessment and Plan (1) Occipital neuritis Status: Acute Code(s): M54.81 - OCCIPITAL NEURALGIA (2) Unstable angina pectoris Status: Acute Code(s): I20.0 - UNSTABLE ANGINA Plan: This patient is a 51-year-old female initially admitted to hospital with intractable headache pain and chest discomfort. She was seen by cardiology today and has been cleared for discharge. She will have an outpatient stress test done. Patient underwent bilateral occipital nerve block procedure yesterday which was not of much benefit for her headache pain. We did contact anesthesia and spoke with Dr. Carlos. He will reevaluate the patient today. We will obtain an MRI of the cervical spine to rule out cervical genic headache syndrome. She may require facet block injections if the MRI shows evidence of degenerative changes. She will be reevaluated for further assessment of repeat occipital nerve block procedure. Her carotid Doppler study came back negative. She is to continue on 1 aspirin daily. We will await further reevaluation from anesthesia regarding pain management. Overall prognosis at this time remains guarded.
[2016-11-19] MEDS: LEVOFLOXACIN 500 MG TAB PO SCH (15:15)
[2016-11-19] MEDS: FLUTICASONE 50MCG/SPRAY NASAL 16GM EA NOSTRIL SCH (15:16)
[2016-11-19] MEDS: BACLOFEN 10 MG TAB PO SCH ×2 (16:14→20:41)
[2016-11-19] MEDS ORDERED: MIDAZOLAM 2 MG/2 ML VIAL IV ONE (18:15)
[2016-11-19] MEDS ORDERED: fentaNYL (PF) 50 MCG/ML 2 ML AMP IV ONE (18:15)
[2016-11-19] MEDS ORDERED: BUPIVACAINE (PF) 0.5% 30 ML VIAL MISCELLANE ONE (18:20)
[2016-11-19] MEDS ORDERED: LACTATED RINGERS 1,000 ML IV ONE (18:27)
--- NOTE | 2016-11-19 18:47 | P.PCN ---
Date of Procedure: 11/19/16 Procedure(s) Performed: Pre-operative diagnosis: 1- Bilateral occipital neuralgea. 2-myofascial pain syndrome and cervical area. 3-cervicogenic headache. Post Operative Diagnosis Same as preoperative diagnoses Procedure: 1-trigger point injections cervical paravertebral muscles total of 7 trigger points injected 4 on the right side cervical paravertebral muscles and 3 on the left side cervical paravertebral muscles ANESTHESIA: Conscious sedation with Versed.2 mg and fentanyl 100 micrograms EBL: Minimal PROCEDURE INDICATION: The patient with neck pain and headache secondary to occipital neuralgea and myofascial pain syndrome unresponsive to conservative treatments. Patient had occipital nerve block done yesterday, and she continued to have severe intractable headache, the examination was positive for multiple trigger point identified in the cervical paravertebral muscles, and also exam was positive for facet loading test in the cervical area bilaterally, patient had no radicular symptoms and she had no motor or sensory deficit, PROCEDURE DESCRIPTION / TECHNIQUE: The patient was seen and identified in the recovery room area. Risks, benefits, complications, and alternatives were discussed with the patient, the patient agreed to proceed with the procedure and signed the consent. IV sedation was given. Vital signs remained stable throughout the procedure. The patient was placed in the sitting position on the procedure table. Critical pause was taken. Vital signs were closely monitored during the procedure. Conscious sedation was used during the procedure to decrease patient s anxiety. The cervical area prepped with chlorhexidine 3, then each of the trigger point which was marked before we started the procedure 4 on the right side cervical paravertebral muscles and 3 on the left side paravertebral muscles , each one of them injected with Marcaine 0.5% , 2 on half cc injected at each trigger point after negative aspiration, and there was no paresthesia during the injctions, 25-gauge needle used for the injection, patient tolerated the procedure well without any complications, and patient also started on baclofen as a muscle relaxant 10 mg every 8 hours, the patient will have MRI of the cervical spine done tonight, and if there is any suggestion a component or discogenic component causing her neck pain then we will consider doing an interventional pain management according to the MRI results
--- NOTE | 2016-11-19 20:02 | MR ---
EXAMINATION TYPE: MR cervical spine wo con DATE OF EXAM: 11/19/2016 7:48 PM COMPARISON: NONE HISTORY: Intractable head and neck pain cervicogenic/facets TECHNIQUE: Multiplanar, multisequence images of the cervical spine were acquired. Findings Cervical vertebra have normal alignment. There is slight narrowing of disc spaces in the mid cervical spine at C4-5 C5-6. There are small posterior disc herniations at C4-5 C5-6 without significant impi ngement on the spinal canal. There is posterior endplate spurring and small disc herniation as well a t C6-7. Cervical spinal cord has normal signal pattern. There is no evidence of edema. Brainstem is i ntact. There is no sign of a fracture. There is no sign of cervical paraspinal mass. I see no bony de structive process. IMPRESSION: Multilevel mild spondylosis at C4-5 C5-6 C6-7. There are small posterior disc herniations at these 3 levels without significant impingement on the spinal canal. The canal is narrowed to 8 mm. No fractur e.
[2016-11-19] MEDS: PRAVASTATIN SODIUM 20 MG TAB PO SCH (20:40)
[2016-11-19] MEDS: LORATADINE-PSEUDOEPH 5-120 MG 1 EACH TAB.ER.12H PO SCH (20:41)
[2016-11-20] MEDS: KETOROLAC 30 MG/ML 1 ML VIAL IVP SCH ×5 (00:33→22:53)
[2016-11-20] MEDS: HYDROmorphone 1 MG/ML 1 ML SYRINGE IVP PRN ×7 (02:07→22:59)
[2016-11-20 05:56] LABS: Basophils % (A) 0 %; CH 31.4; CHCM 34.7; Eosinophils # (A) 0.1 k/uL (0-0.7); Eosinophils % (A) 1 %; HCT 39.2 % (34.0-46.0); HDW 2.83; HGB 13.2 gm/dL (11.4-16.0); Luc # (Auto) 0.22; Luc % (Auto) 3; Lymphocytes # (A) 1.9 k/uL (1.0-4.8); Lymphocytes % (A) 27 %; MCH 30.7 pg (25.0-35.0); MCHC 33.8 g/dL (31.0-37.0); MCV 90.9 fL (80.0-100.0); Mean Platelet Volume 8.2; Monocytes # (A) 0.4 k/uL (0-1.0); Monocytes % (A) 5 %; Neutrophils # (A) 4.5 k/uL (1.3-7.7); Neutrophils % (A) 64 %; RBC 4.31 m/uL (3.80-5.40); RDW 12.9 % (11.5-15.5)
[2016-11-20 06:19] LABS: Anion Gap 13 mmol/L; Blood Urea Nitrogen 17 mg/dL (7-17); Calcium 9.5 mg/dL (8.4-10.2); Carbon Dioxide 23 mmol/L (22-30); Chloride 105 mmol/L (98-107); Glucose 148 mg/dL (74-99); Magnesium 2.1 mg/dL (1.6-2.3); Non-African American GFR(MDRD) >60 (>60 ml/min/1.73 sqM); Phosphorous 4.3 mg/dL (2.5-4.5); Potassium 4.3 mmol/L (3.5-5.1); Sodium 141 mmol/L (137-145)
[2016-11-20] MEDS: PANTOPRAZOLE 40 MG TABLET PO SCH (08:26)
[2016-11-20] MEDS: ASPIRIN 81 MG CHEW PO SCH (08:26)
[2016-11-20] MEDS: LORATADINE-PSEUDOEPH 5-120 MG 1 EACH TAB.ER.12H PO SCH ×2 (08:26→22:51)
[2016-11-20] MEDS: HYDROcodone/APAP 10-325MG 1 EACH TAB PO SCH ×3 (08:26→22:50)
[2016-11-20] MEDS: BACLOFEN 10 MG TAB PO SCH ×3 (08:26→22:50)
[2016-11-20] MEDS: ASCORBIC ACID 500 MG TAB PO SCH (08:26)
[2016-11-20] MEDS: HEPARIN SODIUM,PORCINE 5,000 UNIT/ML 1 ML VIAL SQ SCH ×2 (08:26→22:50)
[2016-11-20] MEDS: B COMPLEX-VIT C-VIT E-ZINC 1 EACH TAB PO SCH (08:26)
[2016-11-20] MEDS: LISINOPRIL 20 MG TAB PO SCH (08:26)
[2016-11-20] MEDS: VITAMIN E (DL,TOCOPHERYL ACET) 400 UNIT CAP PO SCH (08:27)
[2016-11-20] MEDS: FLUTICASONE 50MCG/SPRAY NASAL 16GM EA NOSTRIL SCH (08:27)
[2016-11-20 09:03] VITALS: RESP 16
--- NOTE | 2016-11-20 10:24 | P.PN ---
Subjective Principal diagnosis: Chest pain and intractable headache Patient is a 51-year-old female who presented to [facility] was a chief complaint of chest pain she was also having severe intractable headache was admitted to telemetry floor serial EKGs and cardiac enzymes were negative patient was evaluated by cardiology and was cleared for discharge no intervention was recommended at this time she will be having a stress test as outpatient. Patient was having severe intractable headache currently maintained on [place] 10 3 times a day, Fioricet 1 every 4 hours when necessary, she is also receiving IV dye Dilaudid 1 mg every 3 hours when necessary and Toradol 30 mg IV every 6 hours when necessary. She was evaluated by neurology and by pain services she received occipital injections with minimal improvement of her pain. Computed tomography scan of the brain and MRI of the brain were done and revealed a small area of previous stroke, she was started on aspirin, also revealed evidence of right axillary sinusitis she is maintained on IV antibiotic Levaquin in that regard she was also started on Claritin and Flonase nasal spray. Objective - Vital Signs Vital signs: Vital Signs Temp 97.4 F L 11/20/16 08:00 Pulse 73 11/20/16 08:00 Resp 16 11/20/16 08:00 BP 129/60 11/20/16 08:00 Pulse Ox 98 11/20/16 08:00 Intake & Output 11/19/16 11/20/16 11/20/16 18:59 06:59 18:59 Intake Total 530 236 Balance 530 236 Weight 83.2 kg 83.2 kg Intake: IV 100 Oral 430 236 Other: Voiding Method Toilet Toilet Toilet # Voids 1 2 2 - Exam In general patient is alert and oriented 3 HEENT head normocephalic and traumatic Neck is supple no JVD no goiter no lymphadenopathy Chest exam reveals a few scattered rhonchi no wheezing Cardiac exam reveals regular heart sounds no gallops no murmurs Abdomen is soft nontender no organomegaly Extremity exam reveals no edema no cyanosis or clubbing - Labs CBC & Chem 7: 11/20/16 05:37 11/20/16 05:34 Labs: Abnormal Lab Results - Last 24 Hours (Table) 11/20/16 Range/Units 05:34 Glucose 148 H (74-99) mg/dL Assessment and Plan Plan: #1 chest pain, myocardial infarction ruled out, cleared by cardiology for discharge will need a stress test as outpatient #2 intractable headache, cause is unclear, improving gradually was current management. Discharge discussed was patient she is not ready she is still complaining of severe pain per patient. She was evaluated by pain services and underwent occipital injections #3 small area of previous stroke on MRI patient started on aspirin, evaluated by neurology echocardiogram and carotid Doppler done no significant abnormality found. #4 acute sinusitis might be contributing to her headache, currently maintained on Levaquin, Claritin-D, Flonase nasal spray #5 discharge planning patient is not willing to go home today due to continue with severe headache possible discharge to home tomorrow
[2016-11-20] MEDS: LEVOFLOXACIN 500 MG TAB PO SCH (13:38)
--- NOTE | 2016-11-20 15:54 | P.PN ---
Subjective This patient is a 51-year-old right-handed white female who was seen yesterday for intractable headache pain. She was found to have evidence of bilateral occipital neuritis. She was sent for a occipital nerve block procedure today which was performed by anesthesia this morning. She still continues to complain of severe occipital headache pain. She was sent for MRI of the brain which was completed today. MRI reveals a punctate hyperintensity in the left vertex gyrus. This was seen on diffusion-weighted imaging suggesting possible acute ischemia. We will obtain a carotid Doppler ultrasound to further evaluate for carotid artery stenosis. She is to continue on 1 aspirin daily. We will review the MRI films with radiology. Her current headache symptoms are not related to this isolated finding on the MRI at this time. We once again assured the patient that the MRA failed to reveal any evidence for cerebral aneurysm. No other abnormalities were seen. Patient also underwent MRA [place] of [place] which came back normal with no evidence of cerebral aneurysm. Results of the MRI/MRA were discussed today with the patient. She is still requiring Dilaudid for headache pain management. We may consider alternative medications depending on how the nerve block procedure goals in terms of improvement with headache pain. We will wait for 24 hours to see if the nerve block does reduce the degree of pain. It may take one to 2 days to see the maximum effect of this procedure. Patient may continue to apply moist heat or ice packs to the back of the neck following the procedure today. The patient was transferred to the selective care floor today. She continues to have moderate severe headache pain. On examination she still does have some tenderness in the suboccipital region bilaterally. We did discuss her case today with anesthesia. We've asked the anesthesiologist Dr. Carlos to reevaluate her today. He also recommends possible cervicogenic injections for further assessment. We will obtain an MRI of the cervical spine to further evaluate for facet arthropathy. Patient was given fears that today for headache management which did not give much relief. We will await further reevaluation from Dr. Carlos. Patient was seen by Dr. Carlos yesterday. A repeat trigger point injections and occipital blocks were done. Patient was also sent for MRI of the cervical spine which was reviewed. MRI reveals multiple level mild spondylosis at 3 levels. There was small disc herniation seen with no spinal cord impingement. Patient does feel improvement today after receiving multiple cervical injections and suboccipital injections yesterday by Dr. Carlos. Her pain level has decreased from 10 down to a 5 today. We did review all of her MRI results today with the patient. She may be considered for discharge home tomorrow if she continues to show improvement. We will continue close neurological follow-up with the patient. Her overall prognosis at this time remains guarded. Objective - Vital Signs Vital signs: Vital Signs Temp 98.1 F 11/20/16 12:00 Pulse 71 11/20/16 12:00 Resp 16 11/20/16 12:00 BP 123/73 11/20/16 12:00 Pulse Ox 98 11/20/16 12:00 Intake & Output 11/19/16 11/20/16 11/20/16 18:59 06:59 18:59 Intake Total 530 636 Balance 530 636 Weight 83.2 kg 83.2 kg Intake: IV 100 Oral 430 636 Other: Voiding Method Toilet Toilet Toilet # Voids 1 2 2 - Exam Physical examination: PHYSICAL EXAMINATION: Patient is resting comfortably in bed. VITAL SIGNS: Blood pressure is [123/73]. Heart rate is [71]. Respiration is [16] . Temperature is [98.1]. HEENT: Head is atraumatic, neck is supple, there were no carotid bruits. CHEST: Lungs are clear to auscultation and percussion. CARDIAC: S1, S2 normal rate and rhythm. There is no murmur. ABDOMEN: Soft and nontender. Bowel sounds are present. EXTREMITIES: There is no pedal edema. Peripheral pulses are present. Neurological examination: Patient has a nonfocal neurological exam. Patient continues to demonstrate evidence of bilateral suboccipital tenderness on palpation. She rates the pain 5/10. - Labs CBC & Chem 7: 11/20/16 05:37 11/20/16 05:34 Labs: Abnormal Lab Results - Last 24 Hours (Table) 11/20/16 Range/Units 05:34 Glucose 148 H (74-99) mg/dL Assessment and Plan (1) Occipital neuritis Status: Acute Code(s): M54.81 - OCCIPITAL NEURALGIA (2) Unstable angina pectoris Status: Acute Code(s): I20.0 - UNSTABLE ANGINA Plan: This patient is a 51-year-old female initially admitted to hospital with intractable headache pain and chest discomfort. She was seen by cardiology today and has been cleared for discharge. She will have an outpatient stress test done. Patient underwent bilateral occipital nerve block procedure yesterday which was not of much benefit for her headache pain. We did contact anesthesia and spoke with Dr. Carlos. He will reevaluate the patient today. We will obtain an MRI of the cervical spine to rule out cervical genic headache syndrome. She may require facet block injections if the MRI shows evidence of degenerative changes. She will be reevaluated for further assessment of repeat occipital nerve block procedure. Her carotid Doppler study came back negative. She is to continue on 1 aspirin daily. Patient was reevaluated yesterday by Dr. Carlos for her occipital blocks. She had repeat procedures done yesterday including paracervical injections and repeat suboccipital injections. Today this is the first time her headaches have shown improvement in that the severity of the headaches have dramatically subsided. She rates her current headache pain level at 5/10. We did review the results of her MRI of the cervical spine with the patient today. There is no surgical intervention needed at this time based on the MRI findings. She is to continue to apply moist in heat to the head and neck region daily. She is being considered for possible discharge home tomorrow if she continues to improve. Her overall prognosis at this time remains guarded.
--- NOTE | 2016-11-20 19:31 | P.PN ---
Progress Note - Text This is a 51-year-old female with history of severe headache for the last few days. The patient had occipital nerve block and trigger point injection in the suboccipital and the cervical paravertebral musculature by Dr. Vazquez yesterday. She also has been taking Dilaudid IV and [place] by mouth for her pain. The pain at this time is down to 5 out of 10 and the patient feels much better than yesterday. She feels pain now in the frontal aspects of her head bilaterally. It is steady, non-throbbing pain, however it is associated with photophobia and nausea. The cervical spine MRI showed only mild degenerative changes in the lower half of her cervical spine that does not really explain the intensity of her pain. In my opinion the patient may have a combination of myofascial pain in the posterior cervical musculature and migraine headache. The patient is satisfied with her pain level at this time which is very tolerable and she expressed her willingness to be discharged home tomorrow. The patient can follow-up with our pain clinic in couple of weeks after discharge.
[2016-11-20] MEDS: PRAVASTATIN SODIUM 20 MG TAB PO SCH (22:50)
[2016-11-21] MEDS: HYDROmorphone 1 MG/ML 1 ML SYRINGE IVP PRN ×4 (02:54→12:01)
[2016-11-21] MEDS: KETOROLAC 30 MG/ML 1 ML VIAL IVP SCH ×2 (06:03→12:00)
[2016-11-21 06:14] LABS: Basophils % (A) 0 %; CH 31.3; CHCM 34.4; Eosinophils # (A) 0.1 k/uL (0-0.7); Eosinophils % (A) 1 %; HCT 38.8 % (34.0-46.0); HDW 2.82; Luc % (Auto) 3; Lymphocytes # (A) 1.7 k/uL (1.0-4.8); Lymphocytes % (A) 23 %; MCH 30.5 pg (25.0-35.0); MCHC 33.4 g/dL (31.0-37.0); MCV 91.4 fL (80.0-100.0); Mean Platelet Volume 7.9; Monocytes # (A) 0.3 k/uL (0-1.0); Monocytes % (A) 5 %; Neutrophils # (A) 4.9 k/uL (1.3-7.7); Neutrophils % (A) 68 %; RBC 4.25 m/uL (3.80-5.40); WBC 7.2 k/uL (3.8-10.6); WBC (Perox) 7.75
[2016-11-21 07:01] LABS: Anion Gap 12 mmol/L; Blood Urea Nitrogen 18 mg/dL (7-17); Calcium 9.5 mg/dL (8.4-10.2); Carbon Dioxide 22 mmol/L (22-30); Chloride 108 mmol/L (98-107); Glucose 135 mg/dL (74-99); Magnesium 2.1 mg/dL (1.6-2.3); Non-African American GFR(MDRD) >60 (>60 ml/min/1.73 sqM); Phosphorous 4.1 mg/dL (2.5-4.5); Potassium 4.8 mmol/L (3.5-5.1); Sodium 142 mmol/L (137-145)
[2016-11-21] MEDS: FLUTICASONE 50MCG/SPRAY NASAL 16GM EA NOSTRIL SCH (08:03)
[2016-11-21] MEDS: HEPARIN SODIUM,PORCINE 5,000 UNIT/ML 1 ML VIAL SQ SCH (08:04)
[2016-11-21] MEDS: ASPIRIN 81 MG CHEW PO SCH (08:04)
[2016-11-21] MEDS: ASCORBIC ACID 500 MG TAB PO SCH (08:04)
[2016-11-21] MEDS: HYDROcodone/APAP 10-325MG 1 EACH TAB PO SCH ×2 (08:04→13:43)
[2016-11-21] MEDS: B COMPLEX-VIT C-VIT E-ZINC 1 EACH TAB PO SCH (08:04)
[2016-11-21] MEDS: LORATADINE-PSEUDOEPH 5-120 MG 1 EACH TAB.ER.12H PO SCH (08:05)
[2016-11-21] MEDS: LISINOPRIL 20 MG TAB PO SCH (08:05)
[2016-11-21] MEDS: PANTOPRAZOLE 40 MG TABLET PO SCH (08:05)
[2016-11-21] MEDS: BACLOFEN 10 MG TAB PO SCH (08:05)
[2016-11-21] MEDS: VITAMIN E (DL,TOCOPHERYL ACET) 400 UNIT CAP PO SCH (08:05)
[2016-11-21 12:39] VITALS: BP 132/60; PULSE 70; TEMP 97.9
--- NOTE | 2016-11-21 12:40 | P.DS ---
Providers Date of admission: 11/18/16 16:38 Expected date of discharge: 11/21/16 Attending physician: Maikel Hartman Consults: 11/19/16 14:26 Consult Physician Routine Consulting Provider: Ponce Carlos Consult Reason/Comments: persistent Headache Do you want consulting provider notified?: Yes Primary care physician: Charlotte Hungerford Hospital Course: Diagnoses on discharge: #1 Severe intractable headache, multifactorial related to migraine headache, acute sinusitis, and occipital neuritis #2 acute maxillary sinusitis #3 Chest pain resolved, evaluated by cardiology no intervention recommended at this time Hospital course patient is a 51-year-old female who was admitted to [facility] after presenting with an episode of chest pain and severe intractable headache, in that regard to chest pain patient was evaluated by cardiology serial EKG and cardiac enzymes were negative no intervention was recommended at this time. In regard to severe intractable headache patient was evaluated by neurology and by anesthesia pain services, she underwent MRI of the brain which revealed a very small area of a previous ischemic insult. Per recommendation of neurology aspirin was added, neurology advised that this would not cause her severe headache. MRI also revealed evidence of right maxillary sinusitis patient was given IV Levaquin during this admission. Patient headache failed to improve she was requiring [place] and IV dilaudid, she was evaluated by anesthesia pain services and received occipital injections patient improved gradually she was discharged home on 11/21/2016. Zithromax pack was added to her regimen in that regard to acute maxillary sinusitis, also Claritin-D 12 was added to her regimen and Nasacort nasal spray. Ecotrin 81 mg by mouth daily was added to her regimen Baclofen 10 mg 3 times daily was added to her regimen Fioricet was also added to her regimen Otherwise continue same medication as prior to admission Follow-up was neurology within 2 weeks Follow-up at the pain clinic at [facility] within 2 weeks Follow-up with primary care physician at [facility] within one week Plan - Discharge Summary New Discharge Prescriptions: [place]/APAP/Caff 50-325-40Mg [Fioricet 50-325-40] 1 each PO Q4HR PRN #90 tab PRN Reason: Headache Discharge Medication List Hydrocodone/Acetaminophen [Hydrocodon-Acetaminophn 10-325] 1 tab PO TID [History] Omeprazole 20 mg PO DAILY 03/08/15 [History] Aspirin 81 mg PO DAILY #90 chewable 03/11/15 [Rx] Ascorbic Acid [Vitamin C] 500 mg PO DAILY 11/16/16 [History] Lisinopril [Zestril] 20 mg PO DAILY 11/16/16 [History] Meloxicam [Mobic] 15 mg PO DAILY 11/16/16 [History] [place]-3 Fatty Acids [[place]-3] 1,000 mg PO DAILY 11/16/16 [History] Pravastatin Sodium [Pravachol] 10 mg PO HS 11/16/16 [History] Vitamin B Complex 1 cap PO DAILY 11/16/16 [History] Vitamin E 100 unit PO DAILY 11/16/16 [History] Baclofen [Lioresal] 10 mg PO TID tab 11/21/16 [Rx] Butalb/APAP/Caff 50-325-40Mg [Fioricet 50-325-40] 1 each PO Q4HR PRN #90 tab 09/25 [Rx] Fluticasone Nasal [place] [Flonase Nasal [place]] 2 spray EA NOSTRIL DAILY spr 09/25 [Rx] Loratadine-Pseudoeph 5-120 mg [Claritin-D 12 Hour] 1 each PO Q12HR tab.er.12h 11/21/16 [Rx] Follow up Appointment(s)/Referral(s): Ponce Carlos MD [STAFF PHYSICIAN] - 2 Weeks Danelle Olivia DO [Primary Care Provider] - 1-2 days Desmond Gaitan MD [STAFF PHYSICIAN] - 3 Weeks
--- NOTE | 2016-11-21 13:13 | P.PN ---
Subjective This patient is a 51-year-old right-handed white female who was seen yesterday for intractable headache pain. She was found to have evidence of bilateral occipital neuritis. She was sent for a occipital nerve block procedure today which was performed by anesthesia this morning. She still continues to complain of severe occipital headache pain. She was sent for MRI of the brain which was completed today. MRI reveals a punctate hyperintensity in the left vertex gyrus. This was seen on diffusion-weighted imaging suggesting possible acute ischemia. We will obtain a carotid Doppler ultrasound to further evaluate for carotid artery stenosis. She is to continue on 1 aspirin daily. We will review the MRI films with radiology. Her current headache symptoms are not related to this isolated finding on the MRI at this time. We once again assured the patient that the MRA failed to reveal any evidence for cerebral aneurysm. No other abnormalities were seen. Patient also underwent MRA cowlitz of [place] which came back normal with no evidence of cerebral aneurysm. Results of the MRI/MRA were discussed today with the patient. She is still requiring Dilaudid for headache pain management. We may consider alternative medications depending on how the nerve block procedure goals in terms of improvement with headache pain. We will wait for 24 hours to see if the nerve block does reduce the degree of pain. It may take one to 2 days to see the maximum effect of this procedure. Patient may continue to apply moist heat or ice packs to the back of the neck following the procedure today. The patient was transferred to the selective care floor today. She continues to have moderate severe headache pain. On examination she still does have some tenderness in the suboccipital region bilaterally. We did discuss her case today with anesthesia. We've asked the anesthesiologist Dr. Carlos to reevaluate her today. He also recommends possible cervicogenic injections for further assessment. We will obtain an MRI of the cervical spine to further evaluate for facet arthropathy. Patient was given fears that today for headache management which did not give much relief. We will await further reevaluation from Dr. Carlos. Patient was seen by Dr. Carlos yesterday. A repeat trigger point injections and occipital blocks were done. Patient was also sent for MRI of the cervical spine which was reviewed. MRI reveals multiple level mild spondylosis at 3 levels. There was small disc herniation seen with no spinal cord impingement. Patient does feel improvement today after receiving multiple cervical injections and suboccipital injections yesterday by Dr. Carlos. Her pain level has decreased from 10 down to a 5 today. We did review all of her MRI results today with the patient. She continues to show improvement in terms of headache management today. She is to follow-up in the outpatient pain clinic in 2-3 weeks. She may be considered for discharge home today if she continues to show improvement. We will continue close neurological follow-up with the patient. Her overall prognosis at this time remains guarded. Objective - Vital Signs Vital signs: Vital Signs Temp 98.3 F 11/21/16 08:00 Pulse 69 11/21/16 08:00 Resp 16 11/21/16 08:00 BP 126/59 11/21/16 08:00 Pulse Ox 97 11/21/16 08:00 Intake & Output 11/20/16 11/21/16 11/21/16 18:59 06:59 18:59 Intake Total 636 600 120 Balance 636 600 120 Weight 83.2 kg 83.2 kg Intake: Oral 636 600 120 Other: Voiding Method Toilet Toilet Toilet # Voids 2 2 2 - Exam Physical examination: PHYSICAL EXAMINATION: Patient is resting comfortably in bed. VITAL SIGNS: Blood pressure is [132/60]. Heart rate is [70]. Respiration is [16] . Temperature is [97.9]. HEENT: Head is atraumatic, neck is supple, there were no carotid bruits. CHEST: Lungs are clear to auscultation and percussion. CARDIAC: S1, S2 normal rate and rhythm. There is no murmur. ABDOMEN: Soft and nontender. Bowel sounds are present. EXTREMITIES: There is no pedal edema. Peripheral pulses are present. Neurological examination: Patient has a nonfocal neurological exam. Patient continues to demonstrate evidence of bilateral suboccipital tenderness on palpation. She rates the pain 5/10. - Labs CBC & Chem 7: 11/21/16 05:34 11/21/16 05:34 Labs: Abnormal Lab Results - Last 24 Hours (Table) 11/21/16 Range/Units 05:34 Chloride 108 H (98-107) mmol/L BUN 18 H (7-17) mg/dL Glucose 135 H (74-99) mg/dL Assessment and Plan (1) Occipital neuritis Status: Acute Code(s): M54.81 - OCCIPITAL NEURALGIA (2) Unstable angina pectoris Status: Acute Code(s): I20.0 - UNSTABLE ANGINA Plan: This patient is a 51-year-old female who was initially evaluated for intractable headache pain. She was seen by pain management and did undergo several occipital and cervical paravertebral injections over the last 2 days. She is doing much better in terms of her headache symptoms. She is being discharged home today and is to follow-up with the outpatient pain clinic in 2 weeks. We reviewed all of her test results with the patient once again today. We would recommend she continue on 1 aspirin daily for secondary stroke prevention. Her overall prognosis at this time remains guarded. Patient will be discharged home today and may follow-up in the outpatient neurology clinic in 3-4 weeks as needed. She is to continue to apply moist heat to the neck region for myofascial pain. She is to follow-up with her primary care physician in one week. We will continue to see the patient as needed. Her overall prognosis at this time remains guarded.
[2016-11-21] MEDS: LEVOFLOXACIN 500 MG TAB PO SCH (13:43)
== END 2016-11-21 15:07 | disposition home or self-care (01) | DRG 552 ==
LOC: EC 11:32 → 3OBS 13:55 → OBSVTOIN 11-18 16:38 → 6SEL 11-19 12:08
PROVIDERS: ADMIT Internal Medicine; ATTEND Internal Medicine
PROC: 3E0T3BZ Introduction of Anesthetic Agent into Peripheral Nerves and Plexi, Percutaneous Approach (ICD-10-PCS; principal; 2016-11-18 10:15)
PROC: 3E0T33Z Introduction of Anti-inflammatory into Peripheral Nerves and Plexi, Percutaneous Approach (ICD-10-PCS; principal; 2016-11-18 10:15)
PROC: 3E0T3BZ Introduction of Anesthetic Agent into Peripheral Nerves and Plexi, Percutaneous Approach (ICD-10-PCS; 2016-11-19)
PROC: 3E0T33Z Introduction of Anti-inflammatory into Peripheral Nerves and Plexi, Percutaneous Approach (ICD-10-PCS; 2016-11-19)
DX: M54.81 Occipital neuralgia (principal); I10 Essential (primary) hypertension; E78.2 Mixed hyperlipidemia; G43.909 Migraine, unspecified, not intractable, without status migrainosus; J01.00 Acute maxillary sinusitis, unspecified; J32.0 Chronic maxillary sinusitis; F17.200 Nicotine dependence, unspecified, uncomplicated; I45.10 Unspecified right bundle-branch block; K21.9 Gastro-esophageal reflux disease without esophagitis; Z79.82 Long term (current) use of aspirin; Z82.49 Family history of ischemic heart disease and other diseases of the circulatory system; Z86.73 Personal history of transient ischemic attack (TIA), and cerebral infarction without residual deficits; Z88.0 Allergy status to penicillin; Z79.899 Other long term (current) drug therapy; Z88.5 Allergy status to narcotic agent
CPT/HCPCS: 20553; 36415; 64405; 70450; 70544; 70551; 71020; 72141; 80048; 80053; 80061; 82550; 82553; 83735; 84100; 84484; 85025; 85049; 85379; 85610; 85652; 85730; 86140; 93005; 93306; 93880; 94760; 95819; 96365; 96366; 96375; 96376; 99285

== ENCOUNTER → 2017-11-11 | Outpatient (CLI) | payer OTHER ==
--- NOTE | 2017-11-11 13:09 | XR ---
EXAMINATION TYPE: XR hand complete LT DATE OF EXAM: 11/11/2017 COMPARISON: NONE HISTORY: Contusion left hand TECHNIQUE: Three-view left hand FINDINGS: No acute fractures are evident. Joint spaces are preserved. The soft tissues appear within normal limits. Fifth digit appears intact. Follow-up studies can be performed 7-10 days from acute trauma for continued pain. IMPRESSION: 1. No acute osseous abnormality left hand.
--- NOTE | 2017-11-11 13:17 | XR ---
EXAMINATION TYPE: XR wrist complete LT DATE OF EXAM: 11/11/2017 CLINICAL HISTORY: Left hand contusion and sprain. TECHNIQUE: Frontal, lateral and oblique images of the left wrist are obtained. Scaphoid view was als o obtained. COMPARISON: None FINDINGS: There is no acute fracture/dislocation evident in the left wrist. The joint spaces in the left wrist appear within normal limits. The overlying soft tissue appears unremarkable. IMPRESSION: There is no acute fracture or dislocation in the left wrist.
== END | disposition home or self-care (01) ==
LOC: RADXRMAIN 12:42
PROVIDERS: ATTEND Emergency Medicine
DX: S60.222A Contusion of left hand, initial encounter (principal); S63.502A Unspecified sprain of left wrist, initial encounter

== ENCOUNTER 2018-03-15 09:17 | Inpatient (IN) | payer OTHER ==
[2018-03-15] MEDS ORDERED: KETOROLAC 30 MG/ML 1 ML VIAL IVP STA (10:36)
--- NOTE | 2018-03-15 10:39 | ED ---
Headache HPI - General Chief Complaint: Headache Stated Complaint: Headache Time Seen by Provider: 03/15/18 10:10 Source: patient, RN notes reviewed Mode of arrival: ambulatory Limitations: no limitations - History of Present Illness Initial Comments: This is a 52-year-old female who states she's had pain behind her right eye in the sinus region for about 2 weeks getting progressively worse. She states she' s been on Zithromax Flonase and nurse after without relief is getting worse he currently is 10/10 throbbing pain he states it located around her right periorbital region. She's had no fevers chills or sweats she did have some ear drainage in the right no overt sore throat no cough or phlegm production. She believes it may be her ALLERGIES and sinuses but is not getting any better thus far. No trauma reported some visual change which she believes is because of the pain. No blindness no double vision the patient has tried Excedrin Migraine , Motrin, aspirin, Tylenol without much relief. MD Complaint: headache, other - Related Data Home Medications Medication Instructions Recorded Confirmed Cefdinir [Omnicef] 300 mg PO Q12HR 03/15/18 03/15/18 Fluticasone Nasal [place] [Flonase 1 spray EA NOSTRIL DAILY 03/15/18 03/15/18 Nasal [place]] Lisinopril [Zestril] 10 mg PO DAILY 03/15/18 03/15/18 Allergies Allergy/AdvReac Type Severity Reaction Status Date / Time codeine Allergy Dyspnea Verified 03/15/18 10:13 penicillin V Allergy Swelling Verified 03/15/18 10:13 Review of Systems ROS Statement: Those systems with pertinent positive or pertinent negative responses have been documented in the HPI. ROS Other: All systems not noted in ROS Statement are negative. Past Medical History Past Medical History: Chest Pain / Angina, GERD/Reflux, Hyperlipidemia, Hypertension, Musculoskeletal Disorder, Osteoarthritis (OA) Additional Past Medical History / Comment(s): HERNIATED DISCS, ARTHRITIS WITH BACK PAIN., HOSPITALIZED 11/18/16-11/21/16 AT [facility] FOR CHEST PAIN & HEADACHE WITH PAIN PROCEDURE DONE. History of Any Multi-Drug Resistant Organisms: None Reported Past Surgical History: Cholecystectomy, Heart Catheterization, Hysterectomy, Tonsillectomy Additional Past Surgical History / Comment(s): CYST REMOVED FROM ABD DURING HYSTERECTOMY SX Past Anesthesia/Blood Transfusion Reactions: No Reported Reaction Past Psychological History: No Psychological Hx Reported Smoking Status: Current every day smoker Past Alcohol Use History: Rare Past Drug Use History: None Reported - Past Family History Father Additional Family Medical History / Comment(s): triple bypass, stents Mother Family Medical History: Cancer, Hypertension Additional Family Medical History / Comment(s): HX OF BREAST ,COLON AND LUNG CANCER Brother(s) Additional Family Medical History / Comment(s): heart attacks, stents General Exam - General Exam Comments Initial Comments: This is a well-developed well-nourished awake alert oriented 3 female Limitations: no limitations General appearance: alert, anxious, other (In mild distress) Head exam: Present: atraumatic, normocephalic, normal inspection Eye exam: Present: PERRL, EOMI, other (Some tearing no overt conjunctivitis.) ENT exam: Present: other (Boggy nasal mucosa. Left tympanic membrane is within normal limits right was slightly dull no drainage seen at this time) Neck exam: Present: normal inspection, full ROM. Absent: tenderness, meningismus, lymphadenopathy Respiratory exam: Present: normal lung sounds bilaterally. Absent: respiratory distress, wheezes, rales, rhonchi, stridor Cardiovascular Exam: Present: regular rate, normal rhythm, normal heart sounds. Absent: systolic murmur, diastolic murmur, rubs, gallop, clicks Extremities exam: Present: normal inspection, full ROM Back exam: Present: full ROM Neurological exam: Present: alert, oriented X3, CN II-XII intact Psychiatric exam: Present: normal affect, normal mood Skin exam: Present: warm, dry, intact, normal color. Absent: rash Course Vital Signs 03/15/18 03/15/18 03/15/18 09:41 11:39 13:00 Temperature 98.4 F 98.6 F Pulse Rate 77 58 L 55 L Respiratory 18 18 20 Rate Blood Pressure 133/63 140/65 126/80 O2 Sat by Pulse 99 99 98 Oximetry 03/15/18 13:56 Temperature Pulse Rate Respiratory 17 Rate Blood Pressure O2 Sat by Pulse Oximetry - Reevaluation(s) Reevaluation #1: 03/15/18 12:05 The patient states she had no relief from the Toradol was given. We did discuss the findings on the CAT scans. Further medication will be rendered. Reevaluation #2: 03/15/18 13:18 The patient still states minimal relief in pain is still 8/10 in severity. Medical Decision Making - Medical Decision Making The patient persists in having a headache in spite of aggressive treatment with fluids and medication. I did discuss case with Dr. Hartman the patient will be admitted with ENT consultation. - Lab Data Result diagrams: 03/15/18 10:52 03/15/18 10:52 Lab Results 03/15/18 03/15/18 Range/Units 10:52 10:52 WBC 6.8 (3.8-10.6) k/uL RBC 4.83 (3.80-5.40) m/uL Hgb 14.3 (11.4-16.0) gm/dL Hct 42.9 (34.0-46.0) % MCV 88.8 (80.0-100.0) fL MCH 29.6 (25.0-35.0) pg MCHC 33.4 (31.0-37.0) g/dL RDW 13.2 (11.5-15.5) % Plt Count 268 (150-450) k/uL Neutrophils % 52 % Lymphocytes % 38 % Monocytes % 6 % Eosinophils % 2 % Basophils % 0 % Neutrophils # 3.6 (1.3-7.7) k/uL Lymphocytes # 2.6 (1.0-4.8) k/uL Monocytes # 0.4 (0-1.0) k/uL Eosinophils # 0.1 (0-0.7) k/uL Basophils # 0.0 (0-0.2) k/uL Sodium 140 (137-145) mmol/L Potassium 4.6 (3.5-5.1) mmol/L Chloride 104 (98-107) mmol/L Carbon Dioxide 23 (22-30) mmol/L Anion Gap 13 mmol/L BUN 14 (7-17) mg/dL Creatinine 0.57 (0.52-1.04) mg/dL Est GFR (CKD-EPI)AfAm >90 (>60 ml/min/1.73 sqM) Est GFR (CKD-EPI)NonAf >90 (>60 ml/min/1.73 sqM) Glucose 170 H (74-99) mg/dL Calcium 9.8 (8.4-10.2) mg/dL Magnesium 2.0 (1.6-2.3) mg/dL Total Bilirubin 0.3 (0.2-1.3) mg/dL AST 16 (14-36) U/L ALT 28 (9-52) U/L Alkaline Phosphatase 74 (38-126) U/L Total Protein 6.8 (6.3-8.2) g/dL Albumin 4.5 (3.5-5.0) g/dL Disposition Clinical Impression: Intractable headache, Sinusitis Disposition: ADMITTED IP TO THIS HOSP Condition: Stable Referrals: Danelle Olivia DO [Primary Care Provider] - 1-2 days
[2018-03-15 11:07] LABS: Basophils % (A) 0 %; Eosinophils # (A) 0.1 k/uL (0-0.7); Eosinophils % (A) 2 %; HCT 42.9 % (34.0-46.0); HGB 14.3 gm/dL (11.4-16.0); Lymphocytes # (A) 2.6 k/uL (1.0-4.8); Lymphocytes % (A) 38 %; MCH 29.6 pg (25.0-35.0); MCHC 33.4 g/dL (31.0-37.0); MCV 88.8 fL (80.0-100.0); Monocytes # (A) 0.4 k/uL (0-1.0); Monocytes % (A) 6 %; Neutrophils # (A) 3.6 k/uL (1.3-7.7); Neutrophils % (A) 52 %; Platelet Count 268 k/uL (150-450); RBC 4.83 m/uL (3.80-5.40); RDW 13.2 % (11.5-15.5); WBC 6.8 k/uL (3.8-10.6)
[2018-03-15 11:24] LABS: Anion Gap 13 mmol/L; Blood Urea Nitrogen 14 mg/dL (7-17); Carbon Dioxide 23 mmol/L (22-30); Chloride 104 mmol/L (98-107); Glucose 170 mg/dL (74-99); Potassium 4.6 mmol/L (3.5-5.1); Sodium 140 mmol/L (137-145)
[2018-03-15 11:25] LABS: ALT 28 U/L (9-52); AST 16 U/L (14-36); Albumin 4.5 g/dL (3.5-5.0); Alkaline Phosphatase 74 U/L (38-126); Calcium 9.8 mg/dL (8.4-10.2); Total Bilirubin 0.3 mg/dL (0.2-1.3); Total Protein 6.8 g/dL (6.3-8.2)
--- NOTE | 2018-03-15 11:47 | CT ---
EXAMINATION TYPE: CT brain wo con DATE OF EXAM: 03/15/2018 COMPARISON: NONE HISTORY: Severe KYLE CT DLP: 978.[address] of the brain was performed. The ventricles, basal cisterns and sulci overlying the cerebral convexities demonstrate mild enlargem ent. There is no evidence for intracranial hemorrhage or sulcal effacement. There is decreased attenuation about the periventricular white matter and deep white matter of both c erebral hemispheres, compatible with chronic small vessel ischemia. Differential diagnosis does inclu de demyelination. No mass effects are seen.No midline shift. Osseous calvarium is intact. Chronic pansinusitis noted. If symptoms persist consider MRI. IMPRESSION: 1. Age related atrophic and chronic small vessel ischemic change without acute intracranial process s een at this time. 2. Chronic pansinusitis
--- NOTE | 2018-03-15 11:50 | CT ---
EXAMINATION TYPE: CT sinus wo con DATE OF EXAM: 03/15/2018 COMPARISON: NONE HISTORY: Severe KYLE CT DLP: [address] of the paranasal sinuses was performed in the axial and coronal planes. Bone and soft tissue settings are submitted. There is complete opacification of the maxillary sinuses with bilateral obstruction of the ostiomeata l units. Moderate opacification of the ethmoid air cells is also noted. Mucosal thickening right fron nancy sinus and left sphenoid sinus. The osteal meatal units are patent bilaterally. The nasal septum is midline. No bony destructive changes are seen within the field of view. IMPRESSION: Pansinusitis as noted.
[2018-03-15] MEDS ORDERED: methylPREDNISolone SOD SUCCI 125 MG/2 ML VIAL IV STA (12:04)
[2018-03-15] MEDS ORDERED: fentaNYL (PF) 50 MCG/ML 2 ML AMP IV STA ×2 (12:05→13:15)
[2018-03-15] MEDS ORDERED: SODIUM CHLORIDE 0.9% 1,000 ML IV STA (13:16)
[2018-03-15] MEDS ORDERED: diphenhydrAMINE 50 MG/ML 1 ML VIAL IVP STA (13:18)
[2018-03-15] MEDS ORDERED: PROMETHAZINE INJ 25 MG in SODIUM CHLORIDE 0.9% 50 ML IVPB STA (13:18)
[2018-03-15] MEDS ORDERED: NALOXONE 0.4 MG/ML 1 ML VIAL IV PRN (14:18)
[2018-03-15] MEDS ORDERED: cefTRIAXone IN SWFI 1,000 MG/10 ML SYRINGE IVP STA (14:24)
[2018-03-15] MEDS: SODIUM CHLORIDE 0.9% 1,000 ML IV SCH (14:48)
[2018-03-15] MEDS: KETOROLAC 30 MG/ML 1 ML VIAL IVP PRN (19:47)
[2018-03-15] MEDS: MORPHINE SULFATE 2 MG/ML SYRINGE IVP PRN (22:04)
[2018-03-16] MEDS: MORPHINE SULFATE 2 MG/ML SYRINGE IVP PRN ×7 (01:14→21:54)
[2018-03-16] MEDS: SODIUM CHLORIDE 0.9% 1,000 ML IV SCH ×2 (01:20→19:50)
[2018-03-16] MEDS: LISINOPRIL 10 MG TAB PO SCH (08:57)
[2018-03-16] MEDS: FLUTICASONE 50MCG/SPRAY NASAL 16GM EA NOSTRIL SCH (08:57)
[2018-03-16] MEDS: KETOROLAC 30 MG/ML 1 ML VIAL IVP PRN (11:21)
[2018-03-16] MEDS ORDERED: DOXYCYCLINE MONOHYDRATE 100 MG CAPSULE PO SCH (13:30)
--- NOTE | 2018-03-16 13:36 | P.HPIM ---
History of Present Illness H&P Date: 03/16/18 Chief Complaint: Severe headache This is a 52-year-old female with past medical history significant for essential hypertension and chronic sinusitis of presented to the emergency room with severe headache and sinus pain. Patient said that her symptoms started approximately 2 weeks ago and is being getting progressively worse. She was initially seen by her PCP and was prescribed azithromycin and Flonase spray. She said that she had no relief after finishing antibiotic course. She noted yesterday that her pain is worse and is mostly in the right periorbital area and frontal lobe headache. She patient denies any fevers or chills. No vision change. No ear drainage. No sore throat, cough, or flulike symptoms. Patient was given 1 dose of IV ceftriaxone in the emergency room as well as a dose of IV Solu-Medrol. Computed tomography scan of the sinuses showed ENT consultation. She still requiring IV morphine every 3 hours. Review of Systems Review of system: 14 points review of systems were obtained and were negative except to what were mentioned in the HPI. Past Medical History Past Medical History: Chest Pain / Angina, GERD/Reflux, Hyperlipidemia, Hypertension, Musculoskeletal Disorder, Osteoarthritis (OA) Additional Past Medical History / Comment(s): HERNIATED DISCS, ARTHRITIS WITH BACK PAIN., HOSPITALIZED 11/18/16-11/21/[address] [facility] FOR CHEST PAIN & HEADACHE WITH PAIN PROCEDURE DONE. History of Any Multi-Drug Resistant Organisms: None Reported Past Surgical History: Cholecystectomy, Heart Catheterization, Hysterectomy, Tonsillectomy Additional Past Surgical History / Comment(s): CYST REMOVED FROM ABD DURING HYSTERECTOMY SX Past Anesthesia/Blood Transfusion Reactions: No Reported Reaction Smoking Status: Current every day smoker - Past Family History Father Additional Family Medical History / Comment(s): triple bypass, stents Mother Family Medical History: Cancer, Hypertension Additional Family Medical History / Comment(s): HX OF BREAST ,COLON AND LUNG CANCER Brother(s) Additional Family Medical History / Comment(s): heart attacks, stents Medications and Allergies Home Medications Medication Instructions Recorded Confirmed Type Cefdinir [Omnicef] 300 mg PO Q12HR 03/15/18 03/15/18 History Fluticasone Nasal [place] [Flonase 1 spray EA NOSTRIL DAILY 03/15/18 03/15/18 History Nasal [place]] Lisinopril [Zestril] 10 mg PO DAILY 03/15/18 03/15/18 History Allergies Allergy/AdvReac Type Severity Reaction Status Date / Time codeine Allergy Dyspnea Verified 03/15/18 10:13 penicillin V Allergy Swelling Verified 03/15/18 10:13 Physical Exam Vitals: Vital Signs Temp Pulse Pulse Resp BP BP Pulse Ox 03/16/18 12:00 98.1 F 75 16 157/53 96 03/16/18 08:00 73 16 03/16/18 07:43 97.9 F 73 16 114/58 97 03/16/18 04:00 16 03/15/18 23:58 78 16 03/15/18 23:31 97.6 F 78 16 132/61 95 03/15/18 20:40 18 03/15/18 16:30 97.8 F 67 18 158/64 97 03/15/18 16:06 98.3 F 03/15/18 16:05 80 18 153/75 100 03/15/18 14:45 70 20 144/67 98 03/15/18 13:56 17 Intake and Output 03/15/18 03/16/18 03/16/18 22:59 06:59 14:59 Intake Total 280 720 236 Balance 280 720 236 Intake: IV 80 720 Sodium Chloride 0.9% 1, 80 720 000 ml @ 80 mls/hr IV . [id number] [facility] Rx#:[id number] Oral 200 236 Other: Voiding Method Toilet Toilet Toilet # Voids 1 2 Weight 85 kg General: The patient is awake and alert, in no distress Eye: there is normal conjunctiva bilaterally. Neck: The neck is supple, there is no JVD. Cardiovascular: Normal S1-S2, no S3-S4, no murmurs. Respiratory: Lungs clear to auscultation bilaterally Gastrointestinal: Abdomen is soft, nontender Musculoskeletal: There is no pedal edema. Neurological:. Speech is normal. Skin: Skin is warm and dry Results CBC & Chem 7: 03/15/18 10:52 03/15/18 10:52 Labs: Microbiology - Last 24 Hours (Table) 03/15/18 10:52 Blood Culture - Preliminary Blood No Growth after 24 hours Thrombosis Risk Factor Assmnt - Choose All That Apply Any of the Below Risk Factors Present?: Yes Each Factor Represents 1 point: Age 41-60 years, Obesity (BMI >25) Other Risk Factors: No Other congenital or acquired thrombophilia - If yes, enter type in comment: No Thrombosis Risk Factor Assessment Total Risk Factor Score: 2 Thrombosis Risk Factor Assessment Level: Low Risk Assessment and Plan Assessment: 1. Acute on chronic sinusitis, computed tomography scan showed complete opacification of the maxillary sinus with bilateral obstruction of the ostiomeatal units moderate opacification noted in the 80s with void air cells as well. There is mucosal thickening in the right frontal sinus. Patient states antibiotic with azithromycin. She is ALLERGIC to penicillin. I would start doxycycline twice daily. Continue pain control and intranasal steroids. Awaiting ENT evaluation. 2. Essential hypertension, blood pressure within acceptable range continue home medication
[2018-03-16] MEDS ORDERED: VANCOMYCIN IV PER PHARMACY 1 EACH MISC MISCELLANE PRN (20:14)
--- NOTE | 2018-03-16 20:23 | P.OP ---
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 Endoscopy was needed to rule out polyposis or and obstructive phenomenon or tumor or mass. Operative Findings: Patient has some discolored drainage from the ostomy complexes. Left septal deviation was noted. No tumors polyps or masses are noted. Description of Procedure: This patient was sitting in a semi-recumbent position. An EF type GP nasopharyngoscope was inserted into the patient's nose with care to avoid any trauma to the nasal mucosa or turbinates. We passed the endoscope inferiorly to the middle and superiorly along 3 passes and reevaluated the status of the nose and integrity of the nose and over the infection currently occurring. Patient did have some discolored drainage but no tumors polyps or masses are noted.
--- NOTE | 2018-03-16 20:33 | P.GSCN ---
History of Present Illness Consult date: 03/16/18 Reason for Consult: Acute facial pain primarily right frontal right ethmoid with evidence of chronic pansinusitis on CAT scan. Requesting physician: Maikel Hartman History of present illness: This is a 52-year-old white female who about 3 days ago started having some intense pain to the right frontal right cheek area. She been having some pain behind the eye. She was originally placed on azithromycin but that did not seem to work. She continued to get progressively worse with complaints of some mild congestion and some drainage. Denies any ALLERGY symptoms. She came to the emergency room yesterday and was admitted for antibiotics and pain control. The pain is over the right forehead region which is corresponding to evidence of an acute an acute exacerbation of chronic sinusitis. 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 She denies any ALLERGY symptoms. She has no visual changes. She denies any neurologic symptoms. She denies any other significant symptomatology.. Review of Systems - Constitutional Constitutional Comment(s): acute pain forehead maxillary right Denies anorexia - EENT Ears, nose, mouth and throat: Denies ant. neck pain - Cardiovascular Denies decreased exercise tolerance - Respiratory Denies cough with sputum - Gastrointestinal Denies belching - Genitourinary Genitourinary: Denies decreased libido Menstruation: Denies currently menstrual - Musculoskeletal Denies frequent falls - Integumentary Denies color changes - Neurological Denies balance difficulties - Psychiatric Denies change in libido - Endocrine Denies deepening of the voice - Hematologic/Lymphatic Denies easy bleeding, Denies easy bruising - Allergic/Immunologic Allergic/Immunologic Comment(s): Patient tells me that she gets swelling to penicillin and codeine. She had Rocephin last night and did not have any issues with Rocephin so it appears that a third generation cephalosporin is not problematic. We should avoid penicillin and codeine Denies angioedema Past Medical History Past Medical History: Chest Pain / Angina, GERD/Reflux, Hyperlipidemia, Hypertension, Musculoskeletal Disorder, Osteoarthritis (OA) Additional Past Medical History / Comment(s): HERNIATED DISCS, ARTHRITIS WITH BACK PAIN., HOSPITALIZED 11/18/16-11/21/16 AT [facility] FOR CHEST PAIN & HEADACHE WITH PAIN PROCEDURE DONE. History of Any Multi-Drug Resistant Organisms: None Reported Past Surgical History: Cholecystectomy, Heart Catheterization, Hysterectomy, Tonsillectomy Additional Past Surgical History / Comment(s): CYST REMOVED FROM ABD DURING HYSTERECTOMY SX Past Anesthesia/Blood Transfusion Reactions: No Reported Reaction Smoking Status: Current every day smoker - Past Family History Father Additional Family Medical History / Comment(s): triple bypass, stents Mother Family Medical History: Cancer, Hypertension Additional Family Medical History / Comment(s): HX OF BREAST ,COLON AND LUNG CANCER Brother(s) Additional Family Medical History / Comment(s): heart attacks, stents Medications and Allergies Home Medications Medication Instructions Recorded Confirmed Type Cefdinir [Omnicef] 300 mg PO Q12HR 03/15/18 03/15/18 History Fluticasone Nasal [place] [Flonase 1 spray EA NOSTRIL DAILY 03/15/18 03/15/18 History Nasal [place]] Lisinopril [Zestril] 10 mg PO DAILY 03/15/18 03/15/18 History Allergies Allergy/AdvReac Type Severity Reaction Status Date / Time codeine Allergy Dyspnea Verified 03/15/18 10:13 penicillin V Allergy Swelling Verified 03/15/18 10:13 Surgical - Exam Osteopathic Statement: *. No significant issues noted on an osteopathic structural exam other than those noted in the History and Physical/Consult. Vital Signs Temp Pulse Resp BP Pulse Ox 98.4 F 77 18 133/63 99 03/15/18 09:41 03/15/18 09:41 03/15/18 09:41 03/15/18 09:41 03/15/18 09:41 - General Significant pain over the right face is noted, tenderness to the right frontal and ethmoid and maxillary sinuses are noted well developed, well nourished, severe distress - Eyes PERRL, normal ocular movement - ENT normal pinna, normal nares, no no congestion - Neck no masses, no bruits, trachea midline, no lymphadectomy, no venous distension - Respiratory normal expansion, normal respiratory effort, clear to percussion - Abdomen Abdomen: soft, tender, no bowel sounds - Integumentary no rash, no growths - Neurologic normal coordination, normal sensation, no disoriented - Musculoskeletal normal gait - Psychiatric oriented to time, oriented to person, oriented to place, speech is normal, memory intact Results - Labs 03/15/18 10:52 03/15/18 10:52 Microbiology - Last 24 Hours (Table) 03/15/18 10:52 Blood Culture - Preliminary Blood No Growth after 24 hours Assessment and Plan (1) Atypical facial pain Current Visit: Yes Status: Acute Code(s): G50.1 - ATYPICAL FACIAL PAIN SNOMED Code(s): 60885659 (2) Acute frontal sinusitis Current Visit: Yes Status: Acute Code(s): J01.10 - ACUTE FRONTAL SINUSITIS, UNSPECIFIED SNOMED Code(s): 27647378 (3) Chronic pansinusitis Current Visit: Yes Status: Acute Code(s): J32.4 - CHRONIC PANSINUSITIS SNOMED Code(s): 14484102 (4) Allergic fungal sinusitis (AFS) Current Visit: Yes Status: Acute Code(s): J30.89 - OTHER ALLERGIC RHINITIS; B49 - UNSPECIFIED MYCOSIS SNOMED Code(s): 903028688 (5) Mycetoma Current Visit: Yes Status: Acute Code(s): B47.9 - MYCETOMA, UNSPECIFIED SNOMED Code(s): 475359211 Plan: This patient has what appears to be an acute exacerbation of her chronic sinusitis with involvement of the frontal and ethmoid sinus on the right. 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 Currently, care should involve aggressive antibiotic therapy and steroid therapy and pain control. I will place her on vancomycin and Rocephin. She had Rocephin in the emergency room and did not have any ALLERGIC reaction to the Rocephin. It appears that she cannot take penicillin but she can take a third generation cephalosporin. We will keep her on steroids and Claritin on the outside chance she may develop an ALLERGY. Solu -Medrol will be given. Flonase has been prescribed. She is to rest with her head elevated. I gave her my card and I like to see her on outpatient basis. She should call me after discharge for definitive treatment of her ALLERGIC fungal sinusitis and mycetoma. Thank you for allowing me to participate in the care of this patient. I will not be following the patient while she's here during this hospital that be happy to see her if she needs me. I would discharge her on Levaquin and possibly clindamycin.. Time with Patient: Greater than 30
[2018-03-16] MEDS: LORATADINE 10 MG TAB PO SCH (20:37)
[2018-03-16] MEDS: methylPREDNISolone SOD SUCCI 125 MG/2 ML VIAL IV SCH (20:37)
[2018-03-16] MEDS: cefTRIAXone IN SWFI 1,000 MG/10 ML SYRINGE IVP SCH (20:41)
[2018-03-16] MEDS ORDERED: VANCOMYCIN 1,750 MG in SODIUM CHLORIDE 0.9% 250 ML IVPB ONE (21:00)
[2018-03-16] MEDS: BUTALB/APAP/CAFF 50-325-40MG TAB PO PRN (21:05)
[2018-03-17] MEDS: methylPREDNISolone SOD SUCCI 125 MG/2 ML VIAL IV SCH ×4 (01:02→17:08)
[2018-03-17] MEDS: MORPHINE SULFATE 2 MG/ML SYRINGE IVP PRN ×6 (01:03→17:08)
[2018-03-17] MEDS: BUTALB/APAP/CAFF 50-325-40MG TAB PO PRN ×5 (04:27→21:10)
[2018-03-17] MEDS: SODIUM CHLORIDE 0.9% 1,000 ML IV SCH ×2 (04:44→18:11)
[2018-03-17] MEDS: VANCOMYCIN 1,500 MG in SODIUM CHLORIDE 0.9% 250 ML IVPB SCH ×3 (05:18→22:43)
[2018-03-17 07:17] LABS: Glucose,Whole Blood 230 mg/dL (75-99)
[2018-03-17] MEDS: cefTRIAXone IN SWFI 1,000 MG/10 ML SYRINGE IVP SCH ×2 (08:50→21:12)
[2018-03-17] MEDS: LORATADINE 10 MG TAB PO SCH (08:50)
[2018-03-17] MEDS: LISINOPRIL 10 MG TAB PO SCH (08:50)
[2018-03-17] MEDS: INSULIN ASPART 100 UNIT/ML 1 ML 10 ML VIAL SQ SCH ×4 (09:04→21:28)
[2018-03-17 11:28] LABS: Glucose,Whole Blood 231 mg/dL (75-99)
--- NOTE | 2018-03-17 15:31 | P.DS ---
Providers Date of admission: 03/15/18 14:19 Expected date of discharge: 03/17/18 Attending physician: Maikel Hartman Consults: 03/15/18 14:20 Consult Physician Routine Consulting Provider: Rodney Pool Consult Reason/Comments: Intractable headache with sinusitis Do you want consulting provider notified?: Yes Primary care physician: Danelle Olivia Hospital Course: 1. Acute on chronic sinusitis, computed tomography scan showed complete opacification of the maxillary sinus. Patient was seen by ENT. She underwent a flexible nasal endoscopy. She was noted to have acute frontal sinusitis with severe sepsis and Elsa and the right maxillary sinus mycetoma. She would finish antibiotic course with Levaquin and clindamycin secondary to penicillin ALLERGY. She will follow-up with ENT and the office. 2. Essential hypertension, blood pressure within acceptable range continue home medication Patient Condition at Discharge: Stable Plan - Discharge Summary Discharge Rx Participant: No New Discharge Prescriptions: New Clindamycin HCl [Cleocin] 300 mg PO Q8H #21 cap Levofloxacin [Levaquin] 500 mg PO DAILY 7 Days #7 tab Loratadine [Claritin] 10 mg PO DAILY #30 tab Continue Lisinopril [Zestril] 10 mg PO DAILY Fluticasone Nasal [place] [Flonase Nasal [place]] 1 spray EA NOSTRIL DAILY Discontinued Cefdinir [Omnicef] 300 mg PO Q12HR Discharge Medication List Fluticasone Nasal [place] [Flonase Nasal [place]] 1 spray EA NOSTRIL DAILY 03/15/18 [History] Lisinopril [Zestril] 10 mg PO DAILY 03/15/18 [History] Clindamycin HCl [Cleocin] 300 mg PO Q8H #21 cap 03/17/18 [Rx] Levofloxacin [Levaquin] 500 mg PO DAILY 7 Days #7 tab 03/17/18 [Rx] Loratadine [Claritin] 10 mg PO DAILY #30 tab 03/17/18 [Rx] Follow up Appointment(s)/Referral(s): Danelle Olivia DO [Primary Care Provider] - 1-2 days Rodney Pool DO [Doctor of Osteopathic Medicine] - 1 Week Discharge Disposition: HOME SELF-CARE
[2018-03-17] MEDS: FLUTICASONE 50MCG/SPRAY NASAL 16GM EA NOSTRIL SCH (16:38)
[2018-03-17 16:58] LABS: Glucose,Whole Blood 334 mg/dL (75-99)
--- NOTE | 2018-03-17 17:02 | P.PN ---
Subjective Progress Note Date: 03/17/18 Principal diagnosis: Intractable headache, acute\chronic sinusitis with ALLERGIC fungal sinusitis This patient tells me that her headache is much improved and is gone from a 10 down to a 6 or 7. She now tells me that when she walks the pressure on her feet makes her headaches worse. She denies any double vision she does have photophobia. Meningeal symptoms are suspect a neurologic consultation will be made. She continues to do well on vancomycin and Rocephin. Objective - Vital Signs Vital signs: Vital Signs Temp 97.5 F L 03/17/18 13:43 Pulse 78 03/17/18 16:00 Resp 16 03/17/18 16:00 BP 133/66 03/17/18 13:43 Pulse Ox 97 03/17/18 13:43 Intake & Output 03/16/18 03/17/18 03/17/18 18:59 06:59 18:59 Intake Total 822 Balance 822 Intake: Oral 822 Other: Voiding Method Toilet Toilet Toilet # Voids 2 1 2 - Constitutional General appearance: Present: average body habitus - EENT Eyes: Present: EOMI, PERRLA. Absent: ptosis ENT: Present: normal oropharynx - Neck Neck: Absent: lymphadenopathy Thyroid: bilateral: normal size - Integumentary Integumentary: Absent: calor - Musculoskeletal Musculoskeletal: Present: strength equal bilaterally - Psychiatric Psychiatric: Present: A&O x's 3, appropriate affect, intact judgment & insight - Labs CBC & Chem 7: 03/15/18 10:52 03/15/18 10:52 Labs: Abnormal Lab Results - Last 24 Hours (Table) 03/15/18 03/17/18 03/17/18 Range/Units 10:52 07:15 11:26 POC Glucose (mg/dL) 230 H 231 H (75-99) mg/dL Hemoglobin A1c 8.0 H (4.0-6.0) % 03/17/18 Range/Units 16:41 POC Glucose (mg/dL) 334 H (75-99) mg/dL Hemoglobin A1c (4.0-6.0) % Microbiology - Last 24 Hours (Table) 03/15/18 10:52 Blood Culture - Preliminary Blood No Growth after 48 hours Assessment and Plan (1) Atypical facial pain Current Visit: Yes Status: Acute Code(s): G50.1 - ATYPICAL FACIAL PAIN SNOMED Code(s): 60188809 (2) Acute frontal sinusitis Current Visit: Yes Status: Acute Code(s): J01.10 - ACUTE FRONTAL SINUSITIS, UNSPECIFIED SNOMED Code(s): 98854730 (3) Chronic pansinusitis Current Visit: Yes Status: Acute Code(s): J32.4 - CHRONIC PANSINUSITIS SNOMED Code(s): 85239613 (4) Allergic fungal sinusitis (AFS) Current Visit: Yes Status: Acute Code(s): J30.89 - OTHER ALLERGIC RHINITIS; B49 - UNSPECIFIED MYCOSIS SNOMED Code(s): 398010616 (5) Mycetoma Current Visit: Yes Status: Acute Code(s): B47.9 - MYCETOMA, UNSPECIFIED SNOMED Code(s): 967164107 Plan: This patient is doing somewhat better although her headaches have gone from a tender with 6. She now has some pain when she walks with some throbbing characteristics. Meningeal symptoms need to be ruled out and neurologic consultation has been ordered. We will continue to treat with Rocephin and vancomycin and steroid therapy.
[2018-03-17] MEDS ORDERED: METOCLOPRAMIDE 5 MG/ML 2 ML VIAL IVP SCH ×2 (19:45→20:00)
[2018-03-17] MEDS ORDERED: MAGNESIUM SULFATE-D5W PMX 1 GM in DEXTROSE/WATER 1 100ML.BAG IVPB ONE (20:00)
[2018-03-17 20:37] LABS: Glucose,Whole Blood 284 mg/dL (75-99)
[2018-03-17] MEDS ORDERED: ZOLPIDEM 5 MG TAB PO PRN (21:20)
[2018-03-18] MEDS: BUTALB/APAP/CAFF 50-325-40MG TAB PO PRN ×3 (01:22→09:48)
[2018-03-18] MEDS ORDERED: VANCOMYCIN TROUGH DUE 1 EACH MISC MISCELLANE ONE (05:00)
[2018-03-18 05:56] LABS: Anion Gap 11 mmol/L; Blood Urea Nitrogen 14 mg/dL (7-17); Calcium 9.1 mg/dL (8.4-10.2); Carbon Dioxide 23 mmol/L (22-30); Chloride 108 mmol/L (98-107); Glucose 158 mg/dL (74-99); Potassium 4.4 mmol/L (3.5-5.1); Sodium 142 mmol/L (137-145)
[2018-03-18] MEDS: SODIUM CHLORIDE 0.9% 1,000 ML IV SCH (06:01)
[2018-03-18] MEDS: VANCOMYCIN 1,500 MG in SODIUM CHLORIDE 0.9% 250 ML IVPB SCH ×2 (06:12→14:33)
[2018-03-18] MEDS: METOCLOPRAMIDE 5 MG/ML 2 ML VIAL IVP SCH ×3 (06:13→22:25)
[2018-03-18 07:56] LABS: Glucose,Whole Blood 152 mg/dL (75-99)
[2018-03-18] MEDS: INSULIN ASPART 100 UNIT/ML 1 ML 10 ML VIAL SQ SCH ×4 (09:38→22:24)
[2018-03-18] MEDS: cefTRIAXone IN SWFI 1,000 MG/10 ML SYRINGE IVP SCH (09:39)
[2018-03-18] MEDS: LISINOPRIL 10 MG TAB PO SCH (09:41)
[2018-03-18] MEDS: FLUTICASONE 50MCG/SPRAY NASAL 16GM EA NOSTRIL SCH (09:41)
[2018-03-18] MEDS: LORATADINE 10 MG TAB PO SCH (09:42)
[2018-03-18] MEDS: KETOROLAC 30 MG/ML 1 ML VIAL IVP PRN (09:49)
[2018-03-18] MEDS: PSEUDOEPHEDRINE 30 MG TAB PO PRN ×2 (10:11→18:10)
[2018-03-18] MEDS ORDERED: MORPHINE SULFATE 2 MG/ML SYRINGE IVP STA (11:39)
[2018-03-18] MEDS ORDERED: MORPHINE SULFATE 2 MG/ML SYRINGE ONE (11:40)
[2018-03-18 13:06] LABS: Glucose,Whole Blood 122 mg/dL (75-99)
[2018-03-18] MEDS: methylPREDNISolone SOD SUCCI 125 MG/2 ML VIAL IV SCH ×2 (14:10→19:46)
[2018-03-18] MEDS: oxyCODONE-APAP 5-325MG 1 EACH TAB PO SCH ×2 (14:22→19:41)
--- NOTE | 2018-03-18 15:18 | P.PN ---
Subjective Progress Note Date: 03/18/18 Discharge order was discontinued yesterday as patient is still complaining of severe headache and pain mostly in the right side of her face and periorbital area. Objective - Vital Signs Vital signs: Vital Signs Temp 97.5 F L 03/18/18 09:36 Pulse 72 03/18/18 09:36 Resp 16 03/18/18 09:36 BP 132/70 03/18/18 09:36 Pulse Ox 98 03/18/18 09:36 Intake & Output 03/17/18 03/18/18 03/18/18 18:59 06:59 18:59 Intake Total 705 240 Balance 705 240 Intake: IV 480 Sodium Chloride 0.9% 1, 480 000 ml @ 80 mls/hr IV . [id number] [facility] Rx#:[id number] Intake, IV Titration 225 Amount Magnesium Sulfate-D5w Pmx 100 1 gm In Dextrose/Water 1 100ml.bag @ 100 mls/hr IVPB ONCE ONE Rx#: [id number] Vancomycin 1,500 mg In 125 Sodium Chloride 0.9% 250 ml @ 125 mls/hr IVPB Q8H [facility] Rx#:[id number] Oral 240 Other: Voiding Method Toilet # Voids 2 2 - Exam General: The patient is awake and alert, in no distress Eye: there is normal conjunctiva bilaterally. Neck: The neck is supple, there is no JVD. Cardiovascular: Normal S1-S2, no S3-S4, no murmurs. Respiratory: Lungs clear to auscultation bilaterally Gastrointestinal: Abdomen is soft, nontender Musculoskeletal: There is no pedal edema. Neurological:. Speech is normal. Skin: Skin is warm and dry - Labs CBC & Chem 7: 03/15/18 10:52 03/18/18 05:24 Labs: Abnormal Lab Results - Last 24 Hours (Table) 03/17/18 03/17/18 03/18/18 Range/Units 16:41 20:26 05:24 Chloride 108 H (98-107) mmol/L Glucose 158 H (74-99) mg/dL POC Glucose (mg/dL) 334 H 284 H (75-99) mg/dL 03/18/18 03/18/18 Range/Units 07:47 13:03 Chloride (98-107) mmol/L Glucose (74-99) mg/dL POC Glucose (mg/dL) 152 H 122 H (75-99) mg/dL Microbiology - Last 24 Hours (Table) 03/15/18 10:52 Blood Culture - Preliminary Blood No Growth after 72 hours Assessment and Plan Assessment: 1. Acute on chronic sinusitis, computed tomography scan showed complete opacification of the maxillary sinus with bilateral obstruction of the ostiomeatal units moderate opacification noted in the 80s with void air cells as well. There is mucosal thickening in the right frontal sinus. Patient states antibiotic with azithromycin. She is ALLERGIC to penicillin. I would start doxycycline twice daily. Continue pain control and intranasal steroids. Awaiting ENT evaluation. 2. Essential hypertension, blood pressure within acceptable range continue home medication 3. Acute and severe headache. He is at etiology unclear. Neurology and ENT following. Her pain is on proportional to her underlying problems. Component of migraine headache pain. She is getting Reglan, IV steroids, Fioricet, Percocet, Toradol, and IV magnesium with minimal relief. Questionable pain medication seeking behavior. 4. Steroid-induced hyperglycemia, continue sliding scale insulin Patient is scheduled for MRI in the morning
--- NOTE | 2018-03-18 16:57 | P.PN ---
Subjective Progress Note Date: 03/18/18 Principal diagnosis: Intractable headaches facial pain with associated acute exacerbation of chronic sinusitis with ALLERGIC fungal sinusitis in the right maxillary sinus mycetoma This patient's pain has reduced to a 6 out of 0-10 scale. Earlier today with a 10. Patient's been placed back on steroids and infectious disease has been consult that. The patient is awaiting an MRI because of this patient's intractable headache and facial pain which is greater than physical findings. Nevertheless neurologist on the case and the patient's making slow but steady progress. Objective - Vital Signs Vital signs: Vital Signs Temp 97.5 F L 03/18/18 09:36 Pulse 72 03/18/18 09:36 Resp 16 03/18/18 09:36 BP 132/70 03/18/18 09:36 Pulse Ox 98 03/18/18 09:36 Intake & Output 03/17/18 03/18/18 03/18/18 18:59 06:59 18:59 Intake Total 705 240 Balance 705 240 Intake: IV 480 Sodium Chloride 0.9% 1, 480 000 ml @ 80 mls/hr IV . [id number] [facility] Rx#:[id number] Intake, IV Titration 225 Amount Magnesium Sulfate-D5w Pmx 100 1 gm In Dextrose/Water 1 100ml.bag @ 100 mls/hr IVPB ONCE ONE Rx#: [id number] Vancomycin 1,500 mg In 125 Sodium Chloride 0.9% 250 ml @ 125 mls/hr IVPB Q8H [facility] Rx#:[id number] Oral 240 Other: Voiding Method Toilet # Voids 2 2 - Constitutional General appearance: Present: average body habitus, mild distress - EENT EENT Comment(s): Patient has facial pain to percussion pain over the frontal and ethmoid sinuses. Intranasal examination shows some intranasal inflammation of the third shows no significant drainage. Eyes: Present: PERRLA, fundus normal, photophobia, dentition normal ENT: Absent: pharyngeal erythema - Integumentary Integumentary: Present: flushed - Psychiatric Psychiatric: Present: A&O x's 3, appropriate affect, intact judgment & insight - Labs CBC & Chem 7: 03/15/18 10:52 03/18/18 05:24 Labs: Abnormal Lab Results - Last 24 Hours (Table) 03/17/18 03/17/18 03/18/18 Range/Units 16:41 20:26 05:24 Chloride 108 H (98-107) mmol/L Glucose 158 H (74-99) mg/dL POC Glucose (mg/dL) 334 H 284 H (75-99) mg/dL 03/18/18 03/18/18 Range/Units 07:47 13:03 Chloride (98-107) mmol/L Glucose (74-99) mg/dL POC Glucose (mg/dL) 152 H 122 H (75-99) mg/dL Microbiology - Last 24 Hours (Table) 03/15/18 10:52 Blood Culture - Preliminary Blood No Growth after 72 hours Assessment and Plan (1) Atypical facial pain Current Visit: Yes Status: Acute Code(s): G50.1 - ATYPICAL FACIAL PAIN SNOMED Code(s): 24519061 (2) Acute frontal sinusitis Current Visit: Yes Status: Acute Code(s): J01.10 - ACUTE FRONTAL SINUSITIS, UNSPECIFIED SNOMED Code(s): 32065362 (3) Chronic pansinusitis Current Visit: Yes Status: Acute Code(s): J32.4 - CHRONIC PANSINUSITIS SNOMED Code(s): 35745225 (4) Allergic fungal sinusitis (AFS) Current Visit: Yes Status: Acute Code(s): J30.89 - OTHER ALLERGIC RHINITIS; B49 - UNSPECIFIED MYCOSIS SNOMED Code(s): 353174010 (5) Mycetoma Current Visit: Yes Status: Acute Code(s): B47.9 - MYCETOMA, UNSPECIFIED SNOMED Code(s): 191189562 (6) Intractable headache Current Visit: Yes Status: Acute Code(s): R51 - HEADACHE SNOMED Code(s): 85177162 (7) Sinusitis Current Visit: Yes Status: Acute Code(s): J32.9 - CHRONIC SINUSITIS, UNSPECIFIED SNOMED Code(s): 31849226 (8) Chest pain Current Visit: No Status: Acute Code(s): R07.9 - CHEST PAIN, UNSPECIFIED SNOMED Code(s): 84416735 Plan: This patient's making slow progress. Anus a 6 on a 0-10 scale that seems to be improving over the last 4-6 hours. We are awaiting the results of the MRI which has been ordered earlier today. Awaiting final neurologic assessment. Infectious diseases on the case for antibiotic choice. Pain control with low back, Percocet [id number]. Patient is to rest with head elevated. Nursing staff is to call me if any changes arise. Patient is afebrile. Time with Patient: Greater than 30
[2018-03-18] MEDS ORDERED: LORazepam 2 MG/ML INJ IV STA (17:27)
[2018-03-18] MEDS: MELOXICAM 7.5 MG TAB PO SCH (18:10)
[2018-03-18 18:20] LABS: Glucose,Whole Blood 196 mg/dL (75-99)
--- NOTE | 2018-03-18 18:59 | P.CNNES ---
History of Present Illness Consult date: 03/18/18 Requesting physician: Rodney Pool Reason for Consult: Head Pain Chief complaint: Intractable Head Pain History of Present Illness: Neurology is consulting on a 52-year-old female with past history of essential hypertension and sinusitis. Patient presented with severe headache and sinus pain to the ER. Symptoms started approximately 2-3 weeks ago and have begun to be progressively worse. Patient was treated by PCP with multiple rounds of antibiotics and nasal steroid. Treatment had no effect and no relief. Patient describes the pain is right periorbital and retro-orbital pain with also right- sided frontal pain. He denied any fever, vision changes or chills. No your drainage. Also denied sore throat cough, flulike symptoms, fever or chills. Patient was given a loading dose of IV ceftriaxone in the ER as well as slight Medrol. CT brain showed sinus disease and her nose and throat provider was consulted. Ear nose and throat performed procedure, identified fungal infection and infectious disease was also involved. Patient still has complaints of unrelenting right-sided unilateral retro-orbital and frontal head pain. She was started on IV Solu-Medrol by supervising physician via phone order yesterday. Due to unnown circumstances, IV Solu-Medrol was discontinued mid treatment by another provider per nursing. On rounding today, the patient did not receive IV Solu-Medrol as prescribed by supervising physician as it was terminated prior to completion. It is unknown exactly how much IV Solu-Medrol patient did receive. Provider attempted to contact hospitalist/compilation clerk but was unable to via phone for clarification of discontinuation of the order if it was related to known organism involved or treatment choice by other provider. Provider was not in the building at time of neurology rounding. Patient was receiving toradol, magnesium and reglan instead of IV steroid. On contact, patient was alert and oriented 3, supine in bed, in no acute distress. Patient did emphasize a significant right-sided unilateral head pain. Patient did state her pain level has begun to drop from approximately a 7 8 out of 10 to a 56 out of 10 in the last 24 hours. Review of Systems Systems not noted in HPI are negative Past Medical History Past Medical History: Chest Pain / Angina, GERD/Reflux, Hyperlipidemia, Hypertension, Musculoskeletal Disorder, Osteoarthritis (OA) Additional Past Medical History / Comment(s): HERNIATED DISCS, ARTHRITIS WITH BACK PAIN., HOSPITALIZED 2/9/17-11/21/16 AT [facility] FOR CHEST PAIN & HEADACHE WITH PAIN PROCEDURE DONE. History of Any Multi-Drug Resistant Organisms: None Reported Past Surgical History: Cholecystectomy, Heart Catheterization, Hysterectomy, Tonsillectomy Additional Past Surgical History / Comment(s): CYST REMOVED FROM ABD DURING HYSTERECTOMY SX Past Anesthesia/Blood Transfusion Reactions: No Reported Reaction Smoking Status: Current every day smoker - Past Family History Father Additional Family Medical History / Comment(s): triple bypass, stents Mother Family Medical History: Cancer, Hypertension Additional Family Medical History / Comment(s): HX OF BREAST ,COLON AND LUNG CANCER Brother(s) Additional Family Medical History / Comment(s): heart attacks, stents Medications and Allergies Home Medications Medication Instructions Recorded Confirmed Type Fluticasone Nasal [place] [Flonase 1 spray EA NOSTRIL DAILY 03/15/18 03/15/18 History Nasal [place]] Lisinopril [Zestril] 10 mg PO DAILY 03/15/18 03/15/18 History Clindamycin HCl [Cleocin] 300 mg PO Q8H #21 cap 03/17/18 Rx Levofloxacin [Levaquin] 500 mg PO DAILY 7 Days #7 tab 03/17/18 Rx Loratadine [Claritin] 10 mg PO DAILY #30 tab 03/17/18 Rx Allergies Allergy/AdvReac Type Severity Reaction Status Date / Time codeine Allergy Dyspnea Verified 03/15/18 10:13 penicillin V Allergy Swelling Verified 03/15/18 10:13 Physical Examination - Vital Signs Vital Signs: Vital Signs Temp Pulse Resp BP Pulse Ox 03/18/18 15:55 98.4 F 57 L 16 134/69 97 03/18/18 09:36 97.5 F L 72 16 132/70 98 03/18/18 03:11 18 03/18/18 00:15 97.4 F L 64 15 118/56 95 03/17/18 23:58 16 03/17/18 19:28 16 03/17/18 19:23 97.8 F 71 15 126/65 95 Intake and Output 03/18/18 03/18/18 03/18/18 06:59 14:59 22:59 Intake Total 705 240 Balance 705 240 Intake: IV 480 Sodium Chloride 0.9% 1, 480 000 ml @ 80 mls/hr IV . [id number] [facility] Rx#:[id number] Intake, IV Titration 225 Amount Magnesium Sulfate-D5w Pmx 100 1 gm In Dextrose/Water 1 100ml.bag @ 100 mls/hr IVPB ONCE ONE Rx#: [id number] Vancomycin 1,500 mg In 125 Sodium Chloride 0.9% 250 ml @ 125 mls/hr IVPB Q8H [facility] Rx#:[id number] Oral 240 Other: # Voids 2 General appearance: Alert & oriented x4, no apparent distress. Head: Atraumatic, normocephalic, normal inspection Eyes: Well appearance, PERRLA, EOMI. Absent scleral icterus, conjunctival injection, nystagmus, periorbital swelling. Ear, nose and throat: deferred due to sinus proceduredeferred to her nose and throat provider Neck: Normal inspection, absent tenderness, lymphadenopathy. Respiratory: No increased work of breathing Cardiovascular: Regular rate, rhythm GI/abdominal: no tenderness, no guarding, no rebound, no rigidity. Extremities: All range of motion, normal capillary refill, no tenderness, pedal edema joint swelling, calf tenderness. Neurological: cranial nerves II through XII intact no lateralizing weakness no seizure activity noted on physical exam no pronator drift and no nystagmus. strength equal and symmetrical in all 4 extremities 4+ out of 5 Sensation: equal in all 4 extremities to light touch Right-sided frontal, perioral and retro-orbital head pain with mild right sided occipital nerve tenderness. Psychological: Mood and affect appropriate for setting. Results - Laboratory Findings CBC and BMP: 03/15/18 10:52 03/18/18 05:24 Abnormal Lab Findings: Abnormal Labs 03/15/18 03/15/18 03/17/18 10:52 10:52 07:15 Chloride Glucose 170 H POC Glucose (mg/dL) 230 H Hemoglobin A1c 8.0 H 03/17/18 03/17/18 03/17/18 11:26 16:41 20:26 Chloride Glucose POC Glucose (mg/dL) 231 H 334 H 284 H Hemoglobin A1c 03/18/18 03/18/18 03/18/18 05:24 07:47 13:03 Chloride 108 H Glucose 158 H POC Glucose (mg/dL) 152 H 122 H Hemoglobin A1c 03/18/18 18:16 Chloride Glucose POC Glucose (mg/dL) 196 H Hemoglobin A1c Assessment and Plan (1) Atypical facial pain Current Visit: Yes Status: Acute Code(s): G50.1 - ATYPICAL FACIAL PAIN SNOMED Code(s): 12309837 (2) Intractable headache Current Visit: Yes Status: Acute Code(s): R51 - HEADACHE SNOMED Code(s): 91110435 (3) Sinusitis Current Visit: Yes Status: Acute Code(s): J32.9 - CHRONIC SINUSITIS, UNSPECIFIED SNOMED Code(s): 43812921 Plan: Patient is noted to have unilateral right-sided frontal, periorbital retro- orbital and occipital nerve pain on physical exam. Patient does have recent history of significant sinus disorder with significant medication attempts and failures. Patient was treated by phone by supervising physician with phone order for IV Solu-Medrol, magnesium and anti-emetic medication. Order was not completed as directed and alternative order submitted per nursing. Hospitalist place patient on 60 mg IV Solu-Medrol again today, I'm going to change the order to 250 mg every 8 hours for head pain/migraine related dosing parameters. She may continue Reglan, and magnesium per previous order. Concur with ear nose and throat provider regarding MRI brain with and without contrast to investigate patient's underlying etiology given the disproportional report of pain with regard to potential underlying etiology and symptomology. I'll place an order for an EEG at this time to rule out any other underlying etiology. Neurology will continue to follow provide updates as needed or warranted. Appreciate Ear nose and throat provider recommendations and assistance. I have discussed the plan of care with the physician prior to implementation and he agrees with the plan as implemented.
--- NOTE | 2018-03-18 19:36 | MR ---
EXAMINATION TYPE: MR brain wo/w con DATE OF EXAM: 03/18/2018 COMPARISON: NONE HISTORY: Intractable Head Pain, Started as Stabbing pain behind Right Eyebrow, now Throbbing Pressure . Started 3 weeks ago. No Relief with meds TECHNIQUE: Multiplanar, multisequence images of the brain and brainstem is performed without and with IV contras t, utilizing 8.5 mL intravenous Gadavist . FINDINGS: Diffusion weighted images demonstrate no evidence of a recent infarct or other diffusion ab normality. There is no extra-axial fluid collection or significant white matter signal abnormality. The ventricular system and cisternal spaces are normal in size and appearance. The brain volume is age appropriate. Midline structures demonstrate normal morphology. The craniocervical junction appears within normal limits. Post contrast images demonstrate no abnormal enhancement. Changes of chronic sinusitis noted. 5 mm pineal gland cyst incidentally noted. Craniocervical junction maintained. There is prominence of the basilar tip. Small basilar tip aneurys m not excluded. IMPRESSION: 1. No evidence of acute ischemia. 2. Changes of chronic sinusitis. 3. Prominence of the basilar tip. Small aneurysm in the differential diagnosis could be correlated wi follow-up MRA [facility].
[2018-03-18] MEDS ORDERED: MAGNESIUM SULFATE-D5W PMX 1 GM in DEXTROSE/WATER 1 100ML.BAG IVPB ONE (20:00)
[2018-03-18 20:10] LABS: Glucose,Whole Blood 286 mg/dL (75-99)
[2018-03-18] MEDS: OXYMETAZOLINE 0.05% NASL SPRAY 1 SPRAY BOTTLE NASAL SCH (22:21)
[2018-03-18] MEDS: CEFEPIME 2 GM in SODIUM CHLORIDE 0.9% 50 ML IVPB SCH (23:27)
[2018-03-19] MEDS ORDERED: methylPREDNISolone SOD SUCCI 125 MG/2 ML VIAL IV SCH
[2018-03-19] MEDS: VANCOMYCIN 1,500 MG in SODIUM CHLORIDE 0.9% 250 ML IVPB SCH ×4 (00:20→23:04)
[2018-03-19] MEDS: oxyCODONE-APAP 5-325MG 1 EACH TAB PO SCH ×5 (02:11→23:11)
[2018-03-19] MEDS: methylPREDNISolone SOD SUCCI 250 MG in SODIUM CHLORIDE 0.9% 100 ML IVPB SCH ×3 (02:33→16:48)
[2018-03-19] MEDS: METOCLOPRAMIDE 5 MG/ML 2 ML VIAL IVP SCH ×3 (06:13→23:04)
[2018-03-19 07:24] LABS: Glucose,Whole Blood 234 mg/dL (75-99)
--- NOTE | 2018-03-19 07:26 | CONS ---
CONSULTATION DATE OF SERVICE: 03/18/2018. REASON FOR CONSULTATION: Sinusitis antibiotic recommendation. HISTORY OF PRESENT ILLNESS: The patient is a 52-year-old female who apparently developed started having pain around the frontal site in the right periorbital area about 2-3 weeks ago. Pain described to be more of a throbbing nature around 6 to 7 out of 10 and no radiation. The patient did have some sinus condition at that time for which the patient was evaluated by her primary care physician. She was treated with Zithromax, Flonase, however, she took it for about a week, did not have any improvement. Subsequent called primary care physician and the patient was switched over to cefuroxime which the patient has taken for about a week without any improvement. Subsequently directed to go to the ER. The patient was seen in the [facility] ER on 03/15/2018 where the patient did have a CT of the sinuses done which did show pansinusitis with moderate and bilateral obstruction of the ostiomeatal units. Subsequently has been seen by ENT. Flexible nasal endoscopy has been performed which did show frontal sinusitis with some discolored drainage, but no cultures were done and no evidence of any polyps or mass. The patient did not have any fever during this hospital admission and her white count has been normal, was only checked on March 17, which was 6.8. The patient has been treated with ceftriaxone, Solu-Medrol added today and vancomycin was added yesterday. Infectious Disease was consulted for further recommendation regarding antibiotic therapy. She was scheduled for an MRI tomorrow morning. REVIEW OF SYSTEMS: CONSTITUTIONAL: Positive for weakness but no high-grade fever. Eyes as per HPI. ENT as per HPI. Respiratory no complaint. Cardiovascular no complaint. Genitourinary no complaint. Gastrointestinal: No complaint. Musculoskeletal no comlaint. Integumentary no complaint. Psychological no complaint. Endocrine no complaint. Neurological no complaint. PAST MEDICAL HISTORY: Hypertension, hyperlipidemia, gastroesophageal reflux disease, osteoarthritis, herniated disc with chronic back pain. PAST SURGICAL HISTORY: Cholecystectomy, heart catheterization, hysterectomy, tonsillectomy, cyst removed from the abdomen during hysterectomy surgery. SOCIAL HISTORY: The patient is currently an everyday smoker. No drinking or drug use. FAMILY HISTORY: Father history of heart disease. Mother with history of breast, colon and lung cancer. ALLERGIES: TO PENICILLIN AND CODEINE. MEDICATIONS: Include the patient is currently on: 1. Rocephin 1 g daily. 2. She is on vancomycin. 3. Sudafed. 4. Percocet. 5. Reglan. 6. Mobic. 7. Claritin. 8. Zestril. 9. NovoLog. 10.Flonase nasal spray. PHYSICAL EXAMINATION: Blood pressure is 142/60 with a pulse of 73, temperature 97.8. She is 98% on room air. General description is a middle-aged female lying in bed in no distress. No tachypnea or accessory muscle for respiration use. HEENT: Shows no pallor or scleral icterus. Oral mucosa is dry. No pharyngeal with no thrush. Neck trachea central. No thyromegaly. Lungs unlabored breathing. Clear to auscultation anteriorly. No wheeze or crackles. Heart S1, S2. Regular rate and rhythm. ABDOMEN: Soft, no tenderness. No guarding or rigidity. Extremities: No edema of feet. Skin examination: No rash or mass palpable. Neurological: The patient is awake, alert, oriented x3. Mood and affect normal. No signs of any meningeal irritation. LABS: BUN of 14, creatinine 0.60, hemoglobin 14.8, white count 6.8. Blood cultures have been negative. DIAGNOSTIC IMPRESSION AND PLAN: Patient admitted to the hospital with frontal and periorbital pain on the right side diagnosed with pansinusitis of the basis of CT finding that seemed to have failed to respond to the outpatient Zithromax and Cefuroxime therapy with bilateral opacification of the sinuses and blockage of the osteomeatal sinuses more likely responsible for her pain rather than infectious or failure of antibiotic therapy as the patient is currently not running any fever. Did not have any elevated white count. PLAN: 1. The patient may benefit from a drainage procedure of the sinuses at which time culture should be obtained to find the offending pathogen. 2. In view of the failure to respond to Cefuroxime, we will discontinue Rocephin and add cefepime and continue vancomycin at this point. 3. Depending upon clinical response as well as cultures, we will adjust her medications further if needed. Thank you for this consultation. We will follow this patient along with you. MMODL / IJN: [id number] /
[2018-03-19] MEDS: INSULIN ASPART 100 UNIT/ML 1 ML 10 ML VIAL SQ SCH ×4 (08:28→21:35)
[2018-03-19] MEDS: LISINOPRIL 10 MG TAB PO SCH (08:30)
[2018-03-19] MEDS: FLUTICASONE 50MCG/SPRAY NASAL 16GM EA NOSTRIL SCH (08:30)
[2018-03-19] MEDS: LORATADINE 10 MG TAB PO SCH (08:30)
[2018-03-19] MEDS: MELOXICAM 7.5 MG TAB PO SCH (08:31)
[2018-03-19] MEDS: OXYMETAZOLINE 0.05% NASL SPRAY 1 SPRAY BOTTLE NASAL SCH ×2 (08:32→21:35)
[2018-03-19] MEDS: CEFEPIME 2 GM in SODIUM CHLORIDE 0.9% 50 ML IVPB SCH ×2 (11:39→21:35)
[2018-03-19 11:40] LABS: Glucose,Whole Blood 289 mg/dL (75-99)
--- NOTE | 2018-03-19 15:19 | P.PN ---
Subjective Progress Note Date: 03/19/18 No significant change since yesterday. Significantly elevated blood glucose given high doses of IV Solu-Medrol. Objective - Vital Signs Vital signs: Vital Signs Temp 97.9 F 03/19/18 12:00 Pulse 57 L 03/19/18 12:00 Resp 17 03/19/18 12:00 BP 158/80 03/19/18 12:00 Pulse Ox 97 03/19/18 12:00 Intake & Output 03/18/18 03/19/18 03/19/18 18:59 06:59 18:59 Intake Total 2370 980 Balance 2370 980 Intake: IV 1040 480 Sodium Chloride 0.9% 1, 1040 480 000 ml @ 80 mls/hr IV . [id number] [facility] Rx#:[id number] Intake, IV Titration 350 Amount Cefepime 2 gm In Sodium 100 Chloride 0.9% 50 ml @ 100 mls/hr IVPB Q12HR [facility] Rx #:[id number] Vancomycin 1,500 mg In 250 Sodium Chloride 0.9% 250 ml @ 125 mls/hr IVPB Q8H [facility] Rx#:[id number] Oral 980 500 Other: # Voids 1 - Labs CBC & Chem 7: 03/15/18 10:52 03/18/18 05:24 Labs: Abnormal Lab Results - Last 24 Hours (Table) 03/18/18 03/18/18 03/19/18 Range/Units 18:16 20:05 07:11 POC Glucose (mg/dL) 196 H 286 H 234 H (75-99) mg/dL 03/19/18 Range/Units 11:32 POC Glucose (mg/dL) 289 H (75-99) mg/dL Microbiology - Last 24 Hours (Table) 03/15/18 10:52 Blood Culture - Preliminary Blood No Growth after 96 hours Assessment and Plan Assessment: 1. Acute on chronic sinusitis, computed tomography scan showed complete opacification of the maxillary sinus with bilateral obstruction of the ostiomeatal units moderate opacification noted in the 80s with void air cells as well. There is mucosal thickening in the right frontal sinus. Patient states antibiotic with azithromycin. She is ALLERGIC to penicillin. I would start doxycycline twice daily. Continue pain control and intranasal steroids. Awaiting ENT evaluation. 2. Essential hypertension, blood pressure within acceptable range continue home medication 3. Acute and severe headache. He is at etiology unclear. Neurology and ENT following. Her pain is on proportional to her underlying problems. Component of migraine headache pain. She is getting Reglan, IV steroids, Fioricet, Percocet, Toradol, and IV magnesium with minimal relief. Questionable pain medication seeking behavior. 4. Steroid-induced hyperglycemia, continue sliding scale insulin Brain MRI is completely normal. There is a questionable artifact versus small aneurysm that can be evaluated in the future with MRA that is unlikely contributing to her symptoms. Patient is managed by different consultants right now. No change from my standpoint. Awaiting for all of these people to clear her for discharge.
[2018-03-19] MEDS ORDERED: INSULIN DETEMIR 100 UNIT/ML 10 ML VIAL SQ STA (15:50)
--- NOTE | 2018-03-19 16:40 | P.PN ---
Subjective Progress Note Date: 03/19/18 Principal diagnosis: Head pain Neurology is following on a 52 year old female with right periorbital, retro- orbital unilaeral right sided head pain. Pain started 2-3 weeks ago and was treated by PCP with multiple antibiotics and nasal steroids without success. Patient was then seen by ENT provider, procedure performed that addressed bacterial and fungal related sinus disease. Patient has been followed by neurology and has had 2 of 3 IV solumedrol 250mg infusions since last rounding. Patient will have #3 later today. Patient reports significant pain relief and is now down to a 4/10 from previous 6-7. Patient is AOx3, resting in bed comfortably, no acute distress and has no adverse effects from the medication. Objective - Vital Signs Vital signs: Vital Signs Temp 98.3 F 03/19/18 15:49 Pulse 70 03/19/18 15:49 Resp 18 03/19/18 15:49 BP 161/83 03/19/18 15:49 Pulse Ox 96 03/19/18 15:49 Intake & Output 03/18/18 03/19/18 03/19/18 18:59 06:59 18:59 Intake Total 2370 980 Balance 2370 980 Intake: IV 1040 480 Sodium Chloride 0.9% 1, 1040 480 000 ml @ 80 mls/hr IV . [id number] [facility] Rx#:[id number] Intake, IV Titration 350 Amount Cefepime 2 gm In Sodium 100 Chloride 0.9% 50 ml @ 100 mls/hr IVPB Q12HR [facility] Rx #:[id number] Vancomycin 1,500 mg In 250 Sodium Chloride 0.9% 250 ml @ 125 mls/hr IVPB Q8H [facility] Rx#:[id number] Oral 980 500 Other: # Voids 1 - Exam General appearance: Alert & oriented x3, no apparent distress. Head: Atraumatic, normocephalic, normal inspection, complaints of right-sided, periorbital, retro-orbital, right-sided unilateral head pain Eyes: Well appearance, PERRLA, EOMI. Absent scleral icterus, conjunctival injection, nystagmus, periorbital swelling. Ear, nose and throat: Normal exam, mucous membranes moist Neck: Normal inspection, absent tenderness, lymphadenopathy. Respiratory: No increased work of breathing Cardiovascular: Regular rate, rhythm GI/abdominal: nondistended, no tenderness, no guarding Extremities: full range of motion in all 4 extremities, normal capillary refill , no tenderness, pedal edema joint swelling, calf tenderness. Neurological: cranial nerves II through XII intact no lateralizing weakness no seizure activity noted on physical exam no pronator drift and no nystagmus. strength and sensation are equal in all 4 extremities Psychological: Mood and affect appropriate for setting. - Labs CBC & Chem 7: 03/15/18 10:52 03/18/18 05:24 Labs: Abnormal Lab Results - Last 24 Hours (Table) 03/18/18 03/18/18 03/19/18 Range/Units 18:16 20:05 07:11 POC Glucose (mg/dL) 196 H 286 H 234 H (75-99) mg/dL 03/19/18 Range/Units 11:32 POC Glucose (mg/dL) 289 H (75-99) mg/dL Microbiology - Last 24 Hours (Table) 03/15/18 10:52 Blood Culture - Preliminary Blood No Growth after 96 hours Assessment and Plan (1) Intractable headache Current Visit: Yes Status: Acute Code(s): R51 - HEADACHE SNOMED Code(s): 50118025 (2) Atypical facial pain Current Visit: Yes Status: Acute Code(s): G50.1 - ATYPICAL FACIAL PAIN SNOMED Code(s): 97265082 (3) Sinusitis Current Visit: Yes Status: Acute Code(s): J32.9 - CHRONIC SINUSITIS, UNSPECIFIED SNOMED Code(s): 55006975 Plan: Patient is noted to have unilateral right-sided frontal, periorbital retro- orbital and occipital nerve pain on physical exam which has significantly declined in the past 24 hours. Patient does have recent history of significant sinus disorder with significant medication attempts and failures. Concur with ear nose and throat provider regarding MRI brain with and without contrast to investigate patient's underlying etiology given the disproportional report of pain with regard to potential underlying etiology and symptomology. EEG pending at this time to rule out any other underlying etiology. Continue 250 mg, IV solumedrol Q8HRS for an additional 2 doses through 03/20/18. Continue sliding scale insulin, bedside glucose monitoring, reglan as ordered. Continue neuro checks per protocol as ordered. Neurology will continue to follow provide updates as needed or warranted. I have discussed the plan of care with the physician prior to implementation and he agrees with the plan as implemented.
[2018-03-19 17:13] LABS: Glucose,Whole Blood 230 mg/dL (75-99)
--- NOTE | 2018-03-19 19:20 | P.PN ---
Subjective Progress Note Date: 03/19/18 Principal diagnosis: Intractable cephalgia facial pain This pt is improved and her pain is reduced to a 4-5. She has been sleeping flaccid I've encouraged her to sleep in an upright position. She is requesting a sleeping pill. Overall though she is improved and is requesting discharge. 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 She would be a candidate for a functional endoscopic sinus surgery and a balloon sinus plasty the frontal sinuses. In addition, there was a suspicious artery dilatation noted at the basilar tip and an MRA will be ordered. She is to follow up with her neurologist for this finding possible aneurysm. She is in good spirits. Overall is doing well. Objective - Vital Signs Vital signs: Vital Signs Temp 98.3 F 03/19/18 15:49 Pulse 70 03/19/18 15:49 Resp 18 03/19/18 15:49 BP 161/83 03/19/18 15:49 Pulse Ox 96 03/19/18 15:49 Intake & Output 03/19/18 03/19/18 03/20/18 06:59 18:59 06:59 Intake Total 980 1950 Balance 980 1950 Intake: IV 480 Sodium Chloride 0.9% 1, 480 000 ml @ 80 mls/hr IV . [id number] [facility] Rx#:[id number] Intake, IV Titration 950 Amount Cefepime 2 gm In Sodium 50 Chloride 0.9% 50 ml @ 100 mls/hr IVPB Q12HR [facility] Rx #:[id number] Vancomycin 1,500 mg In 250 Sodium Chloride 0.9% 250 ml @ 125 mls/hr IVPB Q8H [facility] Rx#:[id number] methylPREDNISolone SOD 650 SUCCI 250 mg In Sodium Chloride 0.9% 100 ml @ 100 mls/hr IVPB Q8HR [facility] Rx#:[id number] Oral 500 1000 Other: # Voids 1 - Constitutional General appearance: Present: average body habitus - EENT Eyes: Present: PERRLA, photophobia ENT: Present: normal oropharynx. Absent: hearing grossly normal, pharyngeal erythema Ears: bilateral: normal - Neck Neck: Absent: lymphadenopathy - Labs CBC & Chem 7: 03/15/18 10:52 03/18/18 05:24 Labs: Abnormal Lab Results - Last 24 Hours (Table) 03/18/18 03/19/18 03/19/18 Range/Units 20:05 07:11 11:32 POC Glucose (mg/dL) 286 H 234 H 289 H (75-99) mg/dL 03/19/18 Range/Units 17:06 POC Glucose (mg/dL) 230 H (75-99) mg/dL Microbiology - Last 24 Hours (Table) 03/15/18 10:52 Blood Culture - Preliminary Blood No Growth after 96 hours Assessment and Plan (1) Atypical facial pain Current Visit: Yes Status: Acute Code(s): G50.1 - ATYPICAL FACIAL PAIN SNOMED Code(s): 63615158 (2) Acute frontal sinusitis Current Visit: Yes Status: Acute Code(s): J01.10 - ACUTE FRONTAL SINUSITIS, UNSPECIFIED SNOMED Code(s): 53050604 (3) Chronic pansinusitis Current Visit: Yes Status: Acute Code(s): J32.4 - CHRONIC PANSINUSITIS SNOMED Code(s): 66563198 (4) Allergic fungal sinusitis (AFS) Current Visit: Yes Status: Acute Code(s): J30.89 - OTHER ALLERGIC RHINITIS; B49 - UNSPECIFIED MYCOSIS SNOMED Code(s): 312605359 (5) Mycetoma Current Visit: Yes Status: Acute Code(s): B47.9 - MYCETOMA, UNSPECIFIED SNOMED Code(s): 989688918 (6) Intractable headache Current Visit: Yes Status: Acute Code(s): R51 - HEADACHE SNOMED Code(s): 02215201 (7) Sinusitis Current Visit: Yes Status: Acute Code(s): J32.9 - CHRONIC SINUSITIS, UNSPECIFIED SNOMED Code(s): 64481392 (8) Chest pain Current Visit: No Status: Acute Code(s): R07.9 - CHEST PAIN, UNSPECIFIED SNOMED Code(s): 01907497 Plan: I will be writing for an MRA in light of the findings on MRI scanning to rule out an aneurysm. We will continue antibiotic therapy and she is to be on antibiotics for at least 14 days after she is discharged. Avelox and for Levaquin would be a good choice. She is to follow up with me in the office after discharge. I will no longer be following this patient while she is in the hospital as she has improved significantly. She is to follow up with me on an outpatient basis after discharge. Time with Patient: Greater than 30
[2018-03-19 20:33] LABS: Glucose,Whole Blood 248 mg/dL (75-99)
--- NOTE | 2018-03-19 22:29 | PN ---
PROGRESS NOTE DATE OF SERVICE: 03/19/2018. REASON FOR FOLLOW UP: Pansinusitis. INTERVAL HISTORY: The patient is currently afebrile. The right periorbital pain seemed to have improved. She is down to about 4-5 compared to previously being almost 10/10. The patient denies having any chest pain or shortness of breath or cough. No abdominal pain or any diarrhea. EXAMINATION: Blood pressure is 151/83 with a pulse of 73, temperature 98.3. She is 92% on room air. General description is a middle-aged female lying in bed in no distress. Respiratory system: Unlabored breathing. Clear to auscultation anteriorly. Heart S1, S2. Regular rate and rhythm. Abdomen soft, no tenderness. LABS: No new lab has been obtained today. DIAGNOSTIC IMPRESSION AND PLAN: Patient with pansinusitis mostly the right sinus. Patient has seemed to have shown clinical improvement. Currently on cefepime and vancomycin that will be potential antibiotic on discharge if the patient continues to improve. Continue supportive care. MMODL / IJN: [id number] /
[2018-03-20] MEDS: ZOLPIDEM 10 MG TAB PO PRN ×2 (00:41→21:34)
[2018-03-20] MEDS: methylPREDNISolone SOD SUCCI 250 MG in SODIUM CHLORIDE 0.9% 100 ML IVPB SCH ×3 (00:42→15:12)
[2018-03-20] MEDS: METOCLOPRAMIDE 5 MG/ML 2 ML VIAL IVP SCH ×3 (06:22→21:35)
[2018-03-20] MEDS: oxyCODONE-APAP 5-325MG 1 EACH TAB PO SCH ×2 (06:22→14:02)
[2018-03-20] MEDS: VANCOMYCIN 1,500 MG in SODIUM CHLORIDE 0.9% 250 ML IVPB SCH ×2 (06:23→14:11)
[2018-03-20 07:09] LABS: Glucose,Whole Blood 187 mg/dL (75-99)
[2018-03-20] MEDS: CEFEPIME 2 GM in SODIUM CHLORIDE 0.9% 50 ML IVPB SCH ×2 (08:17→21:33)
[2018-03-20] MEDS: INSULIN ASPART 100 UNIT/ML 1 ML 10 ML VIAL SQ SCH ×4 (08:25→21:48)
[2018-03-20] MEDS: OXYMETAZOLINE 0.05% NASL SPRAY 1 SPRAY BOTTLE NASAL SCH ×2 (08:30→21:33)
[2018-03-20] MEDS: FLUTICASONE 50MCG/SPRAY NASAL 16GM EA NOSTRIL SCH (08:31)
[2018-03-20] MEDS: LORATADINE 10 MG TAB PO SCH (08:31)
[2018-03-20] MEDS: LISINOPRIL 10 MG TAB PO SCH (08:31)
[2018-03-20] MEDS: MELOXICAM 7.5 MG TAB PO SCH (08:31)
[2018-03-20] MEDS ORDERED: LORazepam 2 MG/ML INJ IV ONE (09:00)
[2018-03-20 09:25] LABS: Basophils % (A) 0 %; Eosinophils # (A) 0.2 k/uL (0-0.7); Eosinophils % (A) 2 %; HCT 40.1 % (34.0-46.0); Lymphocytes # (A) 1.4 k/uL (1.0-4.8); Lymphocytes % (A) 12 %; MCH 29.9 pg (25.0-35.0); MCHC 32.4 g/dL (31.0-37.0); Mean Platelet Volume 8.3; Monocytes # (A) 0.3 k/uL (0-1.0); Monocytes % (A) 3 %; Neutrophils # (A) 9.3 k/uL (1.3-7.7); Neutrophils % (A) 83 %; Platelet Count 244 k/uL (150-450); RBC 4.36 m/uL (3.80-5.40); RDW 13.6 % (11.5-15.5); WBC 11.2 k/uL (3.8-10.6)
[2018-03-20 09:47] LABS: ALT 65 U/L (9-52); AST 46 U/L (14-36); Alkaline Phosphatase 56 U/L (38-126); Anion Gap 15 mmol/L; Blood Urea Nitrogen 16 mg/dL (7-17); Carbon Dioxide 20 mmol/L (22-30); Chloride 104 mmol/L (98-107); Glucose 285 mg/dL (74-99); Potassium 4.3 mmol/L (3.5-5.1); Sodium 139 mmol/L (137-145); Total Bilirubin 0.3 mg/dL (0.2-1.3)
--- NOTE | 2018-03-20 10:24 | MR ---
EXAMINATION TYPE: MR angio head wo con DATE OF EXAM: 03/20/2018 COMPARISON: 11/18/2016 MR angiography of head HISTORY: Intractable headache, rule out basilar tip aneurysm EXAMINATION TYPE: MR angio head wo con DATE OF EXAM: 03/20/2018 COMPARISON: 11/18/2016 HISTORY: Intractable headache, rule out basilar tip aneurysm TECHNIQUE: Time of flight images focusing on the [place] of [place] were performed without contrast. FINDINGS: The basilar tip is ectatic (similar to the prior in size) at its termination measuring 5 mm , now after this bifurcates into the posterior cerebral arteries. To the bifurcation there is no foca l aneurysm identified. Within the remainder visualized intracranial vasculature there is no focal raymond nosis or aneurysmal outpouching. The right posterior communicating artery is patent. The left posteri or communicating artery is either diminutive or absent and not seen. No hemodynamically significant s tenosis. The right vertebral artery is dominant. Incidental note of circumferential right maxillary m ucosal thickening and to lesser degree circumferential left maxillary mucosal thickening, similar to the prior. IMPRESSION: 1. No evidence of basilar tip aneurysm. The basilar tip ectasia is similar to the prior 11/18/2016 with no focal outpouching. No evidence of intracranial aneurysm, hemodynamically significant stenosis or vascular occlusion. 2. Persistent mucosal thickening in the maxillary sinuses the represent acute or chronic sinusitis.
--- NOTE | 2018-03-20 10:59 | P.PN ---
Subjective Progress Note Date: 03/20/18 This is a 52-year-old female with past medical history significant for essential hypertension and chronic sinusitis of presented to the emergency room with severe headache and sinus pain. Patient said that her symptoms started approximately 2 weeks ago and is being getting progressively worse. She was initially seen by her PCP and was prescribed azithromycin and Flonase spray. She said that she had no relief after finishing antibiotic course. She noted yesterday that her pain is worse and is mostly in the right periorbital area and frontal lobe headache. She patient denies any fevers or chills. No vision change. No ear drainage. No sore throat, cough, or flulike symptoms. Patient was given 1 dose of IV ceftriaxone in the emergency room as well as a dose of IV Solu-Medrol. Computed tomography scan of the sinuses showed ENT consultation. She still requiring IV morphine every 3 hours. 03/20/2018 patient is followed by ENT, neurology and infectious disease. Patient underwent a flexible direct nasal endoscopy on 03/16/[address] Champion. Findings showed acute frontal sinusitis, right maxillary sinus mycetoma, ALLERGIC fungal sinusitis, chronic pansinusitis and intractable cephalgia. Patient is on cefepime and vancomycin and high-dose of IV site Metaprel. Also Claritin Sudafed and Nasal Sprays. And Also Requiring Percocets [id number]. Patient Had an MRA of the Brain Today. He Is Also Scheduled for an EEG Area Results Are Pending. Patient Is Still Complaining of Right-Sided Headache above the Right Eyebrow. Patient Reports Pain of 7 Out Of 10. When She Takes Medication to Bring It down to about a 5 or 4. We Are Awaiting Test Results and Final Recommendations per Consulting Physicians. Anticipate Discharge Soon. Objective - Vital Signs Vital signs: Vital Signs Temp 98.7 F 03/20/18 08:15 Pulse 70 03/20/18 08:15 Resp 14 03/20/18 08:15 BP 137/77 03/20/18 08:15 Pulse Ox 97 03/20/18 08:15 Intake & Output 03/19/18 03/20/18 03/20/18 18:59 06:59 18:59 Intake Total 1950 250 150 Balance 1950 250 150 Intake: Intake, IV Titration 950 250 150 Amount Cefepime 2 gm In Sodium 50 50 Chloride 0.9% 50 ml @ 100 mls/hr IVPB Q12HR [facility] Rx #:[id number] Vancomycin 1,500 mg In 250 250 Sodium Chloride 0.9% 250 ml @ 125 mls/hr IVPB Q8H [facility] Rx#:[id number] methylPREDNISolone SOD 650 100 SUCCI 250 mg In Sodium Chloride 0.9% 100 ml @ 100 mls/hr IVPB Q8HR [facility] Rx#:[id number] Oral 1000 Other: # Voids 1 2 2 - Exam HEENT tenderness with palpation of the periorbital area around the right eye and right maxillary sinusitis. No evidence of cellulitis. Head normocephalic Neck supple Lungs clear to auscultation bilaterally no wheezing or crackles Heart regular rate and rhythm S1-S2, no rub or gallop Abdomen is soft nontender nondistended positive bowel sounds no hepatosplenomegaly Extremities no edema Neuro alert and orientated to 3 - Labs CBC & Chem 7: 03/20/18 09:15 03/20/18 09:15 Labs: Abnormal Lab Results - Last 24 Hours (Table) 03/19/18 03/19/18 03/19/18 Range/Units 11:32 17:06 20:09 WBC (3.8-10.6) k/uL Neutrophils # (1.3-7.7) k/uL Carbon Dioxide (22-30) mmol/L Glucose (74-99) mg/dL POC Glucose (mg/dL) 289 H 230 H 248 H (75-99) mg/dL AST (14-36) U/L ALT (9-52) U/L Total Protein (6.3-8.2) g/dL 03/20/18 03/20/18 03/20/18 Range/Units 07:04 09:15 09:15 WBC 11.2 H (3.8-10.6) k/uL Neutrophils # 9.3 H (1.3-7.7) k/uL Carbon Dioxide 20 L (22-30) mmol/L Glucose 285 H (74-99) mg/dL POC Glucose (mg/dL) 187 H (75-99) mg/dL AST 46 H (14-36) U/L ALT 65 H (9-52) U/L Total Protein 6.0 L (6.3-8.2) g/dL Microbiology - Last 24 Hours (Table) 03/15/18 10:52 Blood Culture - Preliminary Blood No Growth after 96 hours Assessment and Plan Assessment: 1. Acute on chronic sinusitis: Patient has had computed tomography scan of the brain and MRI of the brain. Also underwent flexible endoscopy with ENT service. Results showed an acute frontal sinusitis, right maxillary sinus mycetoma, ALLERGIC fungal sinusitis, chronic pansinusitis and intractable cephalgia. Continue antibiotics per infectious disease. Awaiting final discharge antibiotic recommendations per infectious disease. Continue Claritin , Sudafed and nasal sprays. Continue Percocet for pain control. Patient will follow up with ENT specialist outpatient setting. Patient may require sinus surgery. 2. Essential hypertension, blood pressure within acceptable range continue home medication 3. Acute and severe headache. He is at etiology unclear. Neurology and ENT following. Her pain is not proportional to her underlying problems. Component of migraine headache pain. She is getting Reglan, IV steroids, Fioricet, Percocet, Toradol, and IV magnesium with minimal relief. Questionable pain medication seeking behavior. Today is the last day of the IV Solu-Medrol per neurology. MRI of the brain had shown a possible aneurysm. MRA of the brain has been ordered. EEG also is pending. 4. Steroid-induced hyperglycemia, continue sliding scale insulin 5. Mildly elevated LFT. No abdominal pain or nausea. Repeat labs in a.m. Anticipate discharge possibly tomorrow. Encouraged patient to increase activity. Await final antibiotic recommendations per infectious disease I performed an examination of the patient and discussed their management with the physician Sanitation Director. I have reviewed the Physician Sanitation Director's notes and agree with the documented findings and plan of care
[2018-03-20 11:44] LABS: Glucose,Whole Blood 298 mg/dL (75-99)
[2018-03-20] MEDS: oxyCODONE-APAP 10-325MG 1 EACH TAB PO PRN ×2 (13:49→18:38)
[2018-03-20 17:24] LABS: Glucose,Whole Blood 332 mg/dL (75-99)
--- NOTE | 2018-03-20 18:42 | EEG ---
ELECTROENCEPHALOGRAM REPORT DATE OF SERVICE: 03/20/2018 REASON FOR TESTING: Altered mental status and headache. DESCRIPTION OF THE PROCEDURE: This EEG was performed using a 21-channel digital electroencephalograph, following international 10-20 system. DESCRIPTION OF THE RECORDING: From the beginning of the tracing, and with the patient's eyes closed, the background rhythm was mostly consisting of 10 Hz alpha frequency in the posterior occipital leads. No obvious asymmetry is seen. Photic stimulation was performed with a minimal driving response seen. No pathological waves were elicited. Hyperventilation was not performed. Occasional muscle and movement artifacts are seen. The patient remains awake throughout the tracing. No epileptiform discharges were seen. Her EKG lead showed a regular rate and rhythm. INTERPRETATION: This awake EEG can be considered within normal limits. There was no asymmetry seen. No epileptiform discharges were noticed. The absence of epileptiform discharges does not rule out the diagnosis of epilepsy; therefore clinical correlation is recommended. MMJAHAIRA / RYNE: [id number] /
--- NOTE | 2018-03-20 19:06 | P.PN ---
Subjective Progress Note Date: 03/20/18 Principal diagnosis: Head pain Neurology is following on a 52 year old female with right periorbital, retro- orbital unilaeral right sided head pain. Pain started 2-3 weeks ago and was treated by PCP with multiple antibiotics and nasal steroids without success. Patient was then seen by ENT provider, procedure performed that addressed bacterial and fungal related sinus disease. Patient has been followed by neurology and has had 2 of 3 IV solumedrol 250mg infusions since last rounding. Patient will have #3 later today. Patient reports significant pain relief and is now down to a 4/10 from previous 6-7. Patient is AOx3, resting in bed comfortably, no acute distress and has no adverse effects from the medication. Interval update 03/20/18: Patient was progressing well with IV steroids, pain medication and treatment of her underlying sinus disorder. However, she began having increased pain when medications were being discontinued. Patient was order a MRA head as a result by the provider at the time that was present. Otherwise patients symptoms had remained consistent but improving. Patients MRA head was unremarkable for any new or changed etiology from the comparative study. Patietnts brain MRI was negative for acute process, EEG was also unremarkable. Patient was off the floor for testing when rounded on by provider but testing was reviewed and given the patients negative results, the patient can be worked up from a neurological standpoint outpatient. Discharge directives in the plan at the conclusion of this document. Objective - Vital Signs Vital signs: Vital Signs Temp 97.7 F 03/20/18 15:21 Pulse 78 03/20/18 15:21 Resp 16 03/20/18 15:21 BP 146/53 03/20/18 15:21 Pulse Ox 98 03/20/18 15:21 Intake & Output 03/19/18 03/20/18 03/20/18 18:59 06:59 18:59 Intake Total 1950 250 150 Balance 1950 250 150 Intake: Intake, IV Titration 950 250 150 Amount Cefepime 2 gm In Sodium 50 50 Chloride 0.9% 50 ml @ 100 mls/hr IVPB Q12HR [facility] Rx #:[id number] Vancomycin 1,500 mg In 250 250 Sodium Chloride 0.9% 250 ml @ 125 mls/hr IVPB Q8H [facility] Rx#:[id number] methylPREDNISolone SOD 650 100 SUCCI 250 mg In Sodium Chloride 0.9% 100 ml @ 100 mls/hr IVPB Q8HR [facility] Rx#:[id number] Oral 1000 Other: # Voids 1 2 2 - Exam 03/19/18 General appearance: Alert & oriented x3, no apparent distress. Head: Atraumatic, normocephalic, normal inspection, complaints of right-sided, periorbital, retro-orbital, right-sided unilateral head pain Eyes: Well appearance, PERRLA, EOMI. Absent scleral icterus, conjunctival injection, nystagmus, periorbital swelling. Ear, nose and throat: Normal exam, mucous membranes moist Neck: Normal inspection, absent tenderness, lymphadenopathy. Respiratory: No increased work of breathing Cardiovascular: Regular rate, rhythm GI/abdominal: nondistended, no tenderness, no guarding Extremities: full range of motion in all 4 extremities, normal capillary refill , no tenderness, pedal edema joint swelling, calf tenderness. Neurological: cranial nerves II through XII intact no lateralizing weakness no seizure activity noted on physical exam no pronator drift and no nystagmus. strength and sensation are equal in all 4 extremities Psychological: Mood and affect appropriate for setting. - Labs CBC & Chem 7: 03/20/18 09:15 03/20/18 09:15 Labs: Abnormal Lab Results - Last 24 Hours (Table) 03/19/18 03/20/18 03/20/18 Range/Units 20:09 07:04 09:15 WBC 11.2 H (3.8-10.6) k/uL Neutrophils # 9.3 H (1.3-7.7) k/uL Carbon Dioxide (22-30) mmol/L Glucose (74-99) mg/dL POC Glucose (mg/dL) 248 H 187 H (75-99) mg/dL AST (14-36) U/L ALT (9-52) U/L Total Protein (6.3-8.2) g/dL 03/20/18 03/20/18 03/20/18 Range/Units 09:15 11:22 17:22 WBC (3.8-10.6) k/uL Neutrophils # (1.3-7.7) k/uL Carbon Dioxide 20 L (22-30) mmol/L Glucose 285 H (74-99) mg/dL POC Glucose (mg/dL) 298 H 332 H (75-99) mg/dL AST 46 H (14-36) U/L ALT 65 H (9-52) U/L Total Protein 6.0 L (6.3-8.2) g/dL Microbiology - Last 24 Hours (Table) 03/15/18 10:52 Blood Culture - Preliminary Blood No Growth after 120 hours Assessment and Plan (1) Intractable headache Current Visit: Yes Status: Acute Code(s): R51 - HEADACHE SNOMED Code(s): 95394102 (2) Atypical facial pain Current Visit: Yes Status: Acute Code(s): G50.1 - ATYPICAL FACIAL PAIN SNOMED Code(s): 37300623 (3) Sinusitis Current Visit: Yes Status: Acute Code(s): J32.9 - CHRONIC SINUSITIS, UNSPECIFIED SNOMED Code(s): 74359188 Plan: Patient is noted to have unilateral right-sided frontal, periorbital retro- orbital and occipital nerve pain on physical exam which had been significantly declining over the last several days with IV solumedrol. Increased symptoms reported by patient were investigated with further imaging as noted today. The results indicate that the patient can be followed up in the outpatient setting at this time and continued on prophylaxis medication and abortive medication post discharge. Discontinue: 250 mg, IV solumedrol Q8HRS effective at the close of this document. Continue sliding scale insulin until sugars are within normal range, bedside glucose monitoring, reglan as ordered. Patient can be started on topamax 50 mg, BID titration (1 tab, po, qday x 7 days then 1 tab bid and hold until seen in the office) Patient may continue fioricet up to tid prn for abortive purposes Neurology will clear the patient for discharge at this time from a neurological standpoint and patient will follow up in the office in 10-14 days. I have discussed the plan of care with the physician prior to implementation and he agrees with the plan as implemented.
[2018-03-20 20:19] LABS: Glucose,Whole Blood 322 mg/dL (75-99)
--- NOTE | 2018-03-20 20:54 | PN ---
PROGRESS NOTE DATE OF SERVICE: 03/20/2018 REASON FOR FOLLOWUP: Sinusitis. INTERVAL HISTORY: The patient is afebrile. She did mention the pain to the periorbital area has improved. Denies having any chest pain or shortness of breath or cough. No abdominal pain or diarrhea. EXAMINATION: Blood pressure 146/53 with a pulse of 78, temperature 97.7. She is 98% on room air. General description is a middle-aged female up in the room in no distress. RESPIRATORY SYSTEM: Unlabored breathing, clear to auscultation anteriorly. HEART: S1, S2. Regular rate. ABDOMEN: Soft, no tenderness. LABS: Hemoglobin is 13, white count 11.2, BUN of 15, creatinine 0.62. DIAGNOSTIC IMPRESSION AND PLAN: Patient with sinusitis failing outpatient antibiotic therapy. The patient seemed to have shown clinical improvement at this time. The patient MRSA infection. Vancomycin will be discontinued. Keep the cefepime transitioning it to the oral Avelox 400 mg daily for about 10 days discharge. Continue supportive care. MMNEETAL / DAYANAN: [id number] /
[2018-03-20] MEDS ORDERED: INSULIN ASPART 100 UNIT/ML 1 ML 10 ML VIAL SQ ONE (21:23)
[2018-03-21] MEDS: oxyCODONE-APAP 10-325MG 1 EACH TAB PO PRN ×2 (01:35→07:07)
[2018-03-21 03:36] VITALS: RESP 14
[2018-03-21 04:51] LABS: HCT 35.1 % (34.0-46.0); HGB 11.8 gm/dL (11.4-16.0); MCH 30.4 pg (25.0-35.0); MCHC 33.6 g/dL (31.0-37.0); MCV 90.3 fL (80.0-100.0); Mean Platelet Volume 8.2; Platelet Count 197 k/uL (150-450); RBC 3.88 m/uL (3.80-5.40); RDW 13.7 % (11.5-15.5); WBC 10.8 k/uL (3.8-10.6)
[2018-03-21] MEDS ORDERED: VANCOMYCIN TROUGH DUE 1 EACH MISC MISCELLANE ONE (05:00)
[2018-03-21 05:01] LABS: ALT 57 U/L (9-52); AST 25 U/L (14-36); Albumin 3.3 g/dL (3.5-5.0); Alkaline Phosphatase 47 U/L (38-126); Anion Gap 10 mmol/L; Blood Urea Nitrogen 19 mg/dL (7-17); Calcium 8.8 mg/dL (8.4-10.2); Carbon Dioxide 24 mmol/L (22-30); Chloride 105 mmol/L (98-107); Glucose 151 mg/dL (74-99); Potassium 4.4 mmol/L (3.5-5.1); Sodium 139 mmol/L (137-145); Total Bilirubin <0.1 mg/dL (0.2-1.3); Total Protein 5.2 g/dL (6.3-8.2)
[2018-03-21] MEDS: METOCLOPRAMIDE 5 MG/ML 2 ML VIAL IVP SCH (05:11)
[2018-03-21 05:21] LABS: Lymphocytes # (M) 2.38 k/uL (1.0-4.8); Monocytes # (M) 0.43 k/uL (0-1.0); Neutrophils # (M) 7.99 k/uL (1.3-7.7); Neutrophils % (M) 74 %; Nucleated Red Blood Cells 0 /100 WBC (0-0); Total Cells Counted 100
[2018-03-21 07:11] VITALS: BP 146/75; PULSE 68; TEMP 97.9
[2018-03-21 07:26] LABS: Glucose,Whole Blood 157 mg/dL (75-99)
[2018-03-21] MEDS: OXYMETAZOLINE 0.05% NASL SPRAY 1 SPRAY BOTTLE NASAL SCH (08:38)
[2018-03-21] MEDS: FLUTICASONE 50MCG/SPRAY NASAL 16GM EA NOSTRIL SCH (08:38)
[2018-03-21] MEDS: LISINOPRIL 10 MG TAB PO SCH (08:39)
[2018-03-21] MEDS: MELOXICAM 7.5 MG TAB PO SCH (08:39)
[2018-03-21] MEDS: INSULIN ASPART 100 UNIT/ML 1 ML 10 ML VIAL SQ SCH (08:39)
[2018-03-21] MEDS: LORATADINE 10 MG TAB PO SCH (08:39)
[2018-03-21] MEDS: CEFEPIME 2 GM in SODIUM CHLORIDE 0.9% 50 ML IVPB SCH (08:40)
--- NOTE | 2018-03-21 11:24 | P.DS ---
Providers Date of admission: 03/17/18 15:51 Expected date of discharge: 03/21/18 Attending physician: Maikel Hartman Consults: 03/15/18 14:20 Consult Physician Routine Consulting Provider: Rodney Pool Consult Reason/Comments: Intractable headache with sinusitis Do you want consulting provider notified?: Yes 03/17/18 16:58 Consult Physician Routine Consulting Provider: Christopher Pereira Consult Reason/Comments: Intractable cephalgia/photophobia/sinusitis rule out migraine/meningial sym Do you want consulting provider notified?: Yes 03/18/18 14:03 Consult Physician Routine Consulting Provider: Darian Noel Consult Reason/Comments: SINUSITIS Do you want consulting provider notified?: Yes Primary care physician: Danelle Olivia Hospital Course: Discharge diagnosis 1. Acute on chronic sinusitis: Patient has had computed tomography scan of the brain and MRI of the brain. Also underwent flexible endoscopy with ENT service. Results showed an acute frontal sinusitis, right maxillary sinus mycetoma, ALLERGIC fungal sinusitis, chronic pansinusitis and intractable cephalgia. Continue antibiotics per infectious disease. Infectious diseases recommending Avelox 400 mg daily for 10 days. She'll be following up with ENT specialist in 1 week. She'll continue with her Flonase and Claritin and Sudafed. 2. Essential hypertension, blood pressure within acceptable range continue home medication 3. Acute and severe headache. He is at etiology unclear. Neurology and ENT following. Her pain is not proportional to her underlying problems. Component of migraine headache pain. She is getting Reglan, IV steroids, Fioricet, Percocet, Toradol, and IV magnesium with minimal relief. Questionable pain medication seeking behavior. Patient completed IV Solu-Medrol.. MRI of the brain had shown a possible aneurysm. MRA of the brain was negative for any aneurysm. EEG no seizure activity neurology has cleared patient for discharge. They are recommending Topamax 50 mg daily for 7 days and then increased to twice a day. Also recommending Fioricet as needed for headache. Percocet will be discontinued. 4. Steroid-induced hyperglycemia, continue sliding scale insulin 5. Mildly elevated LFT. No abdominal pain or nausea. Have improved. Possibly related to the amount of Tylenol from the Percocets. Hospital course This is a 52-year-old female with past medical history significant for essential hypertension and chronic sinusitis of presented to the emergency room with severe headache and sinus pain. Patient said that her symptoms started approximately 2 weeks ago and is being getting progressively worse. She was initially seen by her PCP and was prescribed azithromycin and Flonase spray. She said that she had no relief after finishing antibiotic course. She noted yesterday that her pain is worse and is mostly in the right periorbital area and frontal lobe headache. She patient denies any fevers or chills. No vision change. No ear drainage. No sore throat, cough, or flulike symptoms. Patient was given 1 dose of IV ceftriaxone in the emergency room as well as a dose of IV Solu-Medrol. Computed tomography scan of the sinuses showed ENT consultation. She still requiring IV morphine every 3 hours. 03/20/2018 patient is followed by ENT, neurology and infectious disease. Patient underwent a flexible direct nasal endoscopy on 03/16/[address] Champion. Findings showed acute frontal sinusitis, right maxillary sinus mycetoma, ALLERGIC fungal sinusitis, chronic pansinusitis and intractable cephalgia. Patient is on cefepime and vancomycin and high-dose of IV site Metaprel. Also Claritin Sudafed and Nasal Sprays. And Also Requiring Percocets Dczrsr-[id number]-[id number]. Patient Had an MRA of the Brain Today. He Is Also Scheduled for an EEG Area Results Are Pending. Patient Is Still Complaining of Right-Sided Headache above the Right Eyebrow. Patient Reports Pain of 7 Out Of 10. When She Takes Medication to Bring It down to about a 5 or 4. We Are Awaiting Test Results and Final Recommendations per Consulting Physicians. Anticipate Discharge Soon. Patient initially had a discharge on 03/17/2018 but this was held due to her headaches. Patient was then seen by neurology and infectious disease. Neurology has cleared her for discharge. Patient continues to have some headache. Showing improvement. Neurology is recommending Topamax and Fioricet at discharge. MRI and MRA of the brain were negative for any acute changes. And patient will follow-up with ENT specialist for possible sinus surgery in outpatient setting. Patient's continue with the Avelox for 10 more days. Patient is medically stable for discharge. She has been cleared by consulting physicians for discharge. Please refer to chart for any further details. I performed an examination of the patient and discussed their management with the physician Hydrological Technical Officer. I have reviewed the Physician Hydrological Technical Officer's notes and agree with the documented findings and plan of care Patient Condition at Discharge: Stable Plan - Discharge Summary Discharge Rx Participant: Yes New Discharge Prescriptions: New Loratadine [Claritin] 10 mg PO DAILY #30 tab Moxifloxacin HCl [Avelox] 400 mg PO DAILY #10 tablet Pseudoephedrine [Sudafed] 60 mg PO Q6HR PRN #28 tab PRN Reason: Nasal Congestion Topiramate [Topamax] 50 mg PO DIRECTED #30 tab Butalb/APAP/Caff 50-325-40Mg [Fioricet 50-325-40] 1 tab PO Q4H PRN #12 tablet PRN Reason: Headache Continue Lisinopril [Zestril] 10 mg PO DAILY Fluticasone Nasal [place] [Flonase Nasal [place]] 1 spray EA NOSTRIL DAILY Discontinued Cefdinir [Omnicef] 300 mg PO Q12HR Discharge Medication List Fluticasone Nasal [place] [Flonase Nasal [place]] 1 spray EA NOSTRIL DAILY 03/15/18 [History] Lisinopril [Zestril] 10 mg PO DAILY 03/15/18 [History] Loratadine [Claritin] 10 mg PO DAILY #30 tab 03/17/18 [Rx] Butalb/APAP/Caff 50-325-40Mg [Fioricet 50-325-40] 1 tab PO Q4H PRN #12 tablet [Rx] Moxifloxacin HCl [Avelox] 400 mg PO DAILY #10 tablet 03/21/18 [Rx] Pseudoephedrine [Sudafed] 60 mg PO Q6HR PRN #28 tab 03/21/18 [Rx] Topiramate [Topamax] 50 mg PO DIRECTED #30 tab 03/21/18 [Rx] Follow up Appointment(s)/Referral(s): Rodney Pool DO [Doctor of Osteopathic Medicine] - 1 Week Christopher Pereira MD [STAFF PHYSICIAN] - 1 Week Danelle Olivia DO [Primary Care Provider] - 3 Days Patient Instructions/Handouts: Rhinosinusitis (DC) Activity/Diet/Wound Care/Special Instructions: Diet: cardiac Activity: as tolerated Discharge Disposition: HOME SELF-CARE
== END 2018-03-21 11:45 | disposition home or self-care (01) | DRG 872 ==
LOC: EC 09:17 → 3OBS 14:19 → 3SUR 03-16 20:56 → OBSVTOIN 03-17 15:51
PROVIDERS: ADMIT Internal Medicine; ATTEND Internal Medicine
PROC: 09JK8ZZ Inspection of Nasal Mucosa and Soft Tissue, Via Natural or Artificial Opening Endoscopic (ICD-10-PCS; principal; 2018-03-16)
DX: A41.02 Sepsis due to Methicillin resistant Staphylococcus aureus (principal); B47.9 Mycetoma, unspecified; B49 Unspecified mycosis; J01.10 Acute frontal sinusitis, unspecified; J32.4 Chronic pansinusitis; R65.20 Severe sepsis without septic shock; F17.210 Nicotine dependence, cigarettes, uncomplicated; E78.5 Hyperlipidemia, unspecified; I10 Essential (primary) hypertension; J30.89 Other allergic rhinitis; J34.2 Deviated nasal septum; K21.9 Gastro-esophageal reflux disease without esophagitis; Z88.5 Allergy status to narcotic agent; Z88.0 Allergy status to penicillin; T38.0X5A Adverse effect of glucocorticoids and synthetic analogues, initial encounter; R73.9 Hyperglycemia, unspecified; Z79.899 Other long term (current) drug therapy; Z80.1 Family history of malignant neoplasm of trachea, bronchus and lung; Z82.49 Family history of ischemic heart disease and other diseases of the circulatory system; Z80.3 Family history of malignant neoplasm of breast; Z80.0 Family history of malignant neoplasm of digestive organs; Z90.710 Acquired absence of both cervix and uterus; J32.0 Chronic maxillary sinusitis
CPT/HCPCS: 36415; 70450; 70486; 70544; 70553; 80048; 80053; 80202; 83036; 83735; 84145; 85025; 87040; 95816; 96361; 96374; 96375; 96376; 99285

== ENCOUNTER → 2018-03-29 | Outpatient (CLI) | payer OTHER ==
[2018-03-30 01:20] LABS: Immunoglobulin E 49.1 IU/mL (0.00-114.00)
[2018-03-30 04:15] LABS: Angiotensin-1 Converting Enz. 5 U/L (8-52)
[2018-03-30 14:09] LABS: C-ANCA <1:20 Titer (<1:20); P-ANCA <1:20 Titer (<1:20)
== END | disposition home or self-care (01) ==
LOC: LABWHC1 15:45
PROVIDERS: ATTEND Otolaryngology
DX: D84.9 Immunodeficiency, unspecified (principal); J32.4 Chronic pansinusitis
CPT/HCPCS: 36415; 82164; 82784; 82785; 86255

== ENCOUNTER 2018-04-09 11:13 | Observation (INO) | payer OTHER ==
[2018-04-09] MEDS ORDERED: MORPHINE SULFATE 2 MG/ML SYRINGE IVP STA ×2 (12:13→14:18)
[2018-04-09] MEDS ORDERED: SODIUM CHLORIDE 0.9% 1,000 ML IV ONE (12:13)
--- NOTE | 2018-04-09 12:16 | ED ---
Recheck HPI - General Chief Complaint: Recheck/Abnormal Lab/Rx Stated Complaint: Post Op Complications Time Seen by Provider: 04/09/18 11:19 Source: patient, RN notes reviewed, old records reviewed Mode of arrival: wheelchair Limitations: no limitations - History of Present Illness Initial Comments: This Patient is a 52-year-old female presents emergency Department severe right- sided facial pain and swelling. She reports that she had sinus surgery by Dr. Champion . Patient reports that she was doing well and was placed on antibiotics. Patient states that he today she started to have a severe headache and noticed a nosebleed. She also reports severe pain around the right eye. Patient was admitted earlier this month for similar complaints. Patient states that she has had no fevers or chills. She's been taking [place], steroids and her antibiotic as prescribed. - Related Data Home Medications Medication Instructions Recorded Confirmed Fluticasone Nasal [place] [Flonase 1 spray EA NOSTRIL DAILY 03/15/18 03/15/18 Nasal [place]] Lisinopril [Zestril] 10 mg PO DAILY 03/15/18 03/15/18 Previous Rx's Medication Instructions Recorded Loratadine [Claritin] 10 mg PO DAILY #30 tab 03/17/18 Butalb/APAP/Caff 50-325-40Mg 1 tab PO Q4H PRN #12 tablet 03/21/18 [Fioricet 50-325-40] Moxifloxacin HCl [Avelox] 400 mg PO DAILY #10 tablet 03/21/18 Pseudoephedrine [Sudafed] 60 mg PO Q6HR PRN #28 tab 03/21/18 Topiramate [Topamax] 50 mg PO DIRECTED #30 tab 03/21/18 Allergies Allergy/AdvReac Type Severity Reaction Status Date / Time codeine Allergy Dyspnea Verified 04/09/18 11:17 penicillin V Allergy Swelling Verified 04/09/18 11:17 Review of Systems ROS Statement: Those systems with pertinent positive or pertinent negative responses have been documented in the HPI. ROS Other: All systems not noted in ROS Statement are negative. Past Medical History Past Medical History: Chest Pain / Angina, GERD/Reflux, Hyperlipidemia, Hypertension, Musculoskeletal Disorder, Osteoarthritis (OA) Additional Past Medical History / Comment(s): HERNIATED DISCS, ARTHRITIS WITH BACK PAIN., HOSPITALIZED 11/18/16-11/21/16 AT [facility] FOR CHEST PAIN & HEADACHE WITH PAIN PROCEDURE DONE. History of Any Multi-Drug Resistant Organisms: None Reported Past Surgical History: Cholecystectomy, Heart Catheterization, Hysterectomy, Tonsillectomy Additional Past Surgical History / Comment(s): CYST REMOVED FROM ABD DURING HYSTERECTOMY SX Past Anesthesia/Blood Transfusion Reactions: No Reported Reaction Past Psychological History: No Psychological Hx Reported Smoking Status: Current some day smoker Past Alcohol Use History: None Reported Past Drug Use History: None Reported - Past Family History Father Additional Family Medical History / Comment(s): triple bypass, stents Mother Family Medical History: Cancer, Hypertension Additional Family Medical History / Comment(s): HX OF BREAST ,COLON AND LUNG CANCER Brother(s) Additional Family Medical History / Comment(s): heart attacks, stents General Exam - General Exam Comments Initial Comments: 52-year-old female. Alert and oriented. She appears in moderate discomfort. Limitations: no limitations General appearance: alert, in no apparent distress Head exam: Present: atraumatic, normocephalic, normal inspection Eye exam: Present: normal appearance, PERRL, EOMI. Absent: scleral icterus, conjunctival injection, periorbital swelling ENT exam: Present: normal exam, mucous membranes moist, other (Patient has some tenderness over the right periorbital area and ethmoid and maxillary sinus. Does have evidence of a right sided nose bleed.) Neck exam: Present: normal inspection. Absent: tenderness, meningismus, lymphadenopathy Respiratory exam: Present: normal lung sounds bilaterally. Absent: respiratory distress, wheezes, rales, rhonchi, stridor Cardiovascular Exam: Present: regular rate, normal rhythm, normal heart sounds. Absent: systolic murmur, diastolic murmur, rubs, gallop, clicks Extremities exam: Present: normal inspection, full ROM, normal capillary refill. Absent: tenderness, pedal edema, joint swelling, calf tenderness Back exam: Present: normal inspection Neurological exam: Present: alert, oriented X3, CN II-XII intact Psychiatric exam: Present: normal affect, normal mood Skin exam: Present: warm Course Vital Signs 04/09/18 04/09/18 11:15 13:32 Temperature 98.0 F Pulse Rate 100 68 Respiratory 20 16 Rate Blood Pressure 156/89 155/71 O2 Sat by Pulse 99 96 Oximetry Medical Decision Making - Medical Decision Making Patient 2-year-old female presents to days post sinus surgery by Dr. Champion with right-sided facial swelling pain and intractable headache. Patient has been taking her [place] at home. She does have a minor nosebleed. Patient has been taking her antibiotic steroids and pain medication at home but reports no relief. At this time Patient is given IV fluids labwork obtained. Blood culture obtained. White blood cell count is mildly elevated 12,000. She is afebrile. She does have minor drainage noted around the right eye and slow trickling bloody nose from the left and right near. At this time CT brain and facial bones was completed. Evidence of significant swelling post surgery. No evidence of abscess. CT brain was reviewed and normal. At this time Patient will be admitted for observation under Dr. Champion given 1 g of Rocephin, admitted for intractable headache and sinus pain. - Lab Data Result diagrams: 04/09/18 12:42 04/09/18 12:42 Lab Results 04/09/18 04/09/18 04/09/18 Range/Units 12:42 12:42 12:42 WBC 12.4 H (3.8-10.6) k/uL RBC 4.71 (3.80-5.40) m/uL Hgb 14.4 (11.4-16.0) gm/dL Hct 41.8 (34.0-46.0) % MCV 88.7 (80.0-100.0) fL MCH 30.6 (25.0-35.0) pg MCHC 34.5 (31.0-37.0) g/dL RDW 13.9 (11.5-15.5) % Plt Count 237 (150-450) k/uL Neutrophils % (Manual) 51 % Band Neutrophils % 1 % Lymphocytes % (Manual) 45 % Monocytes % (Manual) 3 % Neutrophils # (Manual) 6.40 (1.3-7.7) k/uL Lymphocytes # (Manual) 5.58 H (1.0-4.8) k/uL Monocytes # (Manual) 0.37 (0-1.0) k/uL Nucleated RBCs 0 (0-0) /100 WBC Differential Comment Manual Slide Review Performed Sodium 141 (137-145) mmol/L Potassium 3.9 (3.5-5.1) mmol/L Chloride 106 (98-107) mmol/L Carbon Dioxide 22 (22-30) mmol/L Anion Gap 13 mmol/L BUN 18 H (7-17) mg/dL Creatinine 0.50 L (0.52-1.04) mg/dL Est GFR (CKD-EPI)AfAm >90 (>60 ml/min/1.73 sqM) Est GFR (CKD-EPI)NonAf >90 (>60 ml/min/1.73 sqM) Glucose 203 H (74-99) mg/dL Plasma Lactic Acid Darius 1.9 (0.7-2.0) mmol/L Calcium 9.3 (8.4-10.2) mg/dL Total Bilirubin 0.4 (0.2-1.3) mg/dL AST 12 L (14-36) U/L ALT 30 (9-52) U/L Alkaline Phosphatase 100 (38-126) U/L Total Protein 6.5 (6.3-8.2) g/dL Albumin 4.2 (3.5-5.0) g/dL - Radiology Data Radiology results: report reviewed Postop changes as described. Extensive inflammatory changes in the paranasal sinuses noted his prior exam. No significant interval change. No abnormal enhancement following contrast menstruation. Bilateral and asked Arnoldo stoma is performed which show abnormal soft tissue swelling to be present at the level surgical sites. No intraorbital abscesses evident. Evidence of pansinusitis. Disposition Clinical Impression: Intractable headache, Sinusitis, Post-op pain Disposition: ADMITTED IP TO THIS HOSP Condition: Stable Is patient prescribed a controlled substance at d/c from ED?: No When asked, does pt state using other controlled substances?: No If prescribed controlled substance>3 days was MAPS reviewed?: No If opioid is for acute pain is fill amount 7 days or less?: No If Rx opioid, was Start Talking consent form obtained?: No Referrals: Danelle Olivia DO [Primary Care Provider] - 1-2 days Time of Disposition: 14:22
[2018-04-09] MEDS: SODIUM CHLORIDE 0.9% 1,000 ML IV SCH (12:39)
[2018-04-09 12:57] LABS: HCT 41.8 % (34.0-46.0); HGB 14.4 gm/dL (11.4-16.0); MCH 30.6 pg (25.0-35.0); MCHC 34.5 g/dL (31.0-37.0); MCV 88.7 fL (80.0-100.0); Mean Platelet Volume 7.1; Platelet Count 237 k/uL (150-450); RBC 4.71 m/uL (3.80-5.40); RDW 13.9 % (11.5-15.5); WBC 12.4 k/uL (3.8-10.6)
[2018-04-09 13:06] LABS: ALT 30 U/L (9-52); AST 12 U/L (14-36); Albumin 4.2 g/dL (3.5-5.0); Alkaline Phosphatase 100 U/L (38-126); Anion Gap 13 mmol/L; Blood Urea Nitrogen 18 mg/dL (7-17); Calcium 9.3 mg/dL (8.4-10.2); Carbon Dioxide 22 mmol/L (22-30); Chloride 106 mmol/L (98-107); Glucose 203 mg/dL (74-99); Potassium 3.9 mmol/L (3.5-5.1); Sodium 141 mmol/L (137-145); Total Bilirubin 0.4 mg/dL (0.2-1.3); Total Protein 6.5 g/dL (6.3-8.2)
[2018-04-09 13:10] LABS: Band Neutrophils % 1 %; Lymphocytes # (M) 5.58 k/uL (1.0-4.8); Monocytes # (M) 0.37 k/uL (0-1.0); Neutrophils % (M) 51 %; Nucleated Red Blood Cells 0 /100 WBC (0-0); Total Cells Counted 100
--- NOTE | 2018-04-09 14:04 | CT ---
EXAMINATION TYPE: CT brain wo con, CT facial bones w con DATE OF EXAM: 04/09/2018 COMPARISON: CT 03/15/2018 CT brain and sinuses HISTORY: Post op complication, sinus surgery, facial and head pain CT DLP: 1097.24 (accession [id number]), 471.22 (accession [id number]) mGycm Automated exposure control for dose reduction was used. Helical imaging through the brain and facial bones, facial bones were performed following intravenous contrast, 100 cc Isovue-300 IV. Coronal and sagittal reconstructions the brain, coronal reconstructi ons of the sinuses, facial bones. FINDINGS: Brain shows normal attenuation. There is no hemorrhage or hydrocephalus, no mass effect. There is extensive inflammatory change within the paranasal sinuses as noted on prior exam. No signi ficant interval change. No abnormal enhancement following contrast menstruation. Bilateral antrostomi es performed which show abnormal soft tissue to be present at the level of the surgical sites. No int raorbital abscess is evident. Soft tissue swelling is noted. IMPRESSION: POSTOP CHANGES DESCRIBED. PANSINUSITIS.
[2018-04-09] MEDS ORDERED: cefTRIAXone IN SWFI 1,000 MG/10 ML SYRINGE IVP STA (14:17)
[2018-04-09] MEDS ORDERED: ONDANSETRON 4 MG/2 ML VIAL IVP STA (14:18)
[2018-04-09] MEDS ORDERED: KETOROLAC 30 MG/ML 1 ML VIAL IVP STA (14:18)
[2018-04-09] MEDS ORDERED: diphenhydrAMINE 50 MG/ML 1 ML VIAL IVP STA (14:18)
[2018-04-09] MEDS ORDERED: NALOXONE 0.4 MG/ML 1 ML VIAL IV PRN (14:24)
[2018-04-09] MEDS ORDERED: KETOROLAC 30 MG/ML 1 ML VIAL IVP PRN (14:24)
[2018-04-09] MEDS ORDERED: ONDANSETRON 4 MG/2 ML VIAL IVP PRN (14:24)
[2018-04-09] MEDS ORDERED: ACETAMINOPHEN TAB 325 MG TAB PO PRN (14:24)
[2018-04-09] MEDS ORDERED: IBUPROFEN 400 MG TAB PO PRN (14:24)
[2018-04-09] MEDS ORDERED: MORPHINE SULFATE 2 MG/ML SYRINGE IV PRN (14:24)
[2018-04-09] MEDS ORDERED: TOPIRAMATE 50 MG PO SCH (14:30)
[2018-04-09] MEDS ORDERED: methylPREDNISolone SOD SUCCI 125 MG/2 ML VIAL IV STA (14:37)
[2018-04-09] MEDS ORDERED: METOCLOPRAMIDE 5 MG/ML 2 ML VIAL IVP STA (16:25)
[2018-04-09] MEDS ORDERED: SUMAtriptan SUCCINATE 6 MG/0.5 ML VIAL SQ STA (16:27)
--- NOTE | 2018-04-09 16:45 | P.GSHP ---
History of Present Illness H&P Date: 04/09/18 Chief Complaint: Headache, right facial pain This is a 52-year-old white female who on Tuesday underwent functional endoscopic sinus surgery for ALLERGIC fungal sinusitis. She had chronic pansinusitis and has had history of migraines and facial pain. Well with no complications or problems in the following day after surgery she was doing quite well with no headaches no visual problems no issues. This morning she started having pretty severe headache which she describes as right-sided headache frontal orbital and facial. She has developed a watering to the right eye. She has complete nasal obstruction. Her headache is a throbbing headache with photophobia. She denies any focal neurologic deficits. She denies confusion dysarthria. Double vision blurred vision etc. CAT scan evaluation was done in the emergency room and a CAT scan of the orbit and head shows no intracranial problems or ophthalmologic problems. No signs of an orbital abscess or any orbital issues. Since she has had migraines in the past and has a throbbing type pain with photophobia migrainous suspect. Otherwise she is doing well she is afebrile. I was called by the emergency room physician and I told him that I thought she should be admitted for observation and treatment. Neurologic consultation is also recommended. - Constitutional Constitutional: Reports anorexia, Denies fever, Denies night sweats - EENT Ears, nose, mouth and throat: Denies ant. neck pain - Cardiovascular Cardiovascular: Denies chest pain, Denies claudication - Respiratory Respiratory: Denies congestion - Gastrointestinal Gastrointestinal: Denies change in bowel habits - Genitourinary (Female) Genitourinary: Denies difficulty conceiving - Menstruation Menstruation: Reports as per HPI - Genitourinary (Male) Genitourinary: Denies discharge - Musculoskeletal Musculoskeletal: Denies fractures - Integumentary Integumentary: Denies brittle nails - Neurological Neurological: Reports migraines, Denies balance difficulties - Psychiatric Psychiatric: Denies anxiety attacks - Endocrine Endocrine: Denies deepening of the voice Past Medical History Past Medical History: Chest Pain / Angina, GERD/Reflux, Hyperlipidemia, Hypertension, Musculoskeletal Disorder, Osteoarthritis (OA) Additional Past Medical History / Comment(s): HERNIATED DISCS, ARTHRITIS WITH BACK PAIN., HOSPITALIZED 11/18/16-11/21/16 AT [facility] FOR CHEST PAIN & HEADACHE WITH PAIN PROCEDURE DONE. History of Any Multi-Drug Resistant Organisms: None Reported Past Surgical History: Cholecystectomy, Heart Catheterization, Hysterectomy, Tonsillectomy Additional Past Surgical History / Comment(s): CYST REMOVED FROM ABD DURING HYSTERECTOMY SX, sinus surgery 04/07 Past Anesthesia/Blood Transfusion Reactions: No Reported Reaction Past Psychological History: No Psychological Hx Reported Smoking Status: Current some day smoker Past Alcohol Use History: None Reported Additional Past Alcohol Use History / Comment(s): STARTED SMOKING AT AGE 15, SMOKES less than 1/2 PPD. Past Drug Use History: None Reported - Past Family History Father Additional Family Medical History / Comment(s): triple bypass, stents Mother Family Medical History: Cancer, Hypertension Additional Family Medical History / Comment(s): HX OF BREAST ,COLON AND LUNG CANCER Brother(s) Additional Family Medical History / Comment(s): heart attacks, stents Medications and Allergies Home Medications Medication Instructions Recorded Confirmed Type RX: Fluticasone Nasal [place] 1 spray EA NOSTRIL DAILY 03/15/18 04/09/18 History [Flonase Nasal [place]] Butalb/APAP/Caff 50-325-40Mg 1 tab PO Q4H PRN #12 tablet 03/21/18 04/09/18 Rx [Fioricet 50-325-40] HYDROcodone/APAP 5-325MG [[place] 1 tab PO Q4HR PRN 04/09/18 04/09/18 History 5-325] Levofloxacin [Levaquin] 500 mg PO DAILY 04/09/18 04/09/18 History Lisinopril [Zestril] 20 mg PO DAILY 04/09/18 04/09/18 History Meloxicam [Mobic] 15 mg PO DAILY 04/09/18 04/09/18 History RX: predniSONE 20 mg PO DAILY 04/09/18 04/09/18 History Allergies Allergy/AdvReac Type Severity Reaction Status Date / Time codeine Allergy Dyspnea Verified 04/09/18 14:49 penicillin V Allergy Swelling Verified 04/09/18 14:49 Surgical - Exam Osteopathic Statement: *. No significant issues noted on an osteopathic structural exam other than those noted in the History and Physical/Consult. Vital Signs Temp Pulse Resp BP Pulse Ox 98.0 F 100 20 156/89 99 04/09/18 11:15 04/09/18 11:15 04/09/18 11:15 04/09/18 11:15 04/09/18 11:15 - General well developed, well nourished, moderate distress, moderate pain, obese - Eyes PERRL, normal ocular movement, no pale - ENT normal pinna, normal nares, normal mucosa, no hearing loss, no congestion - Respiratory normal expansion, normal respiratory effort - Abdomen Abdomen: soft, tender - Integumentary no rash, no growths, no abnormal pigmentation - Neurologic normal coordination, normal sensation, no disoriented, no combative, no deep tendon reflexes, no confused, no memory loss - Musculoskeletal normal gait, normal posture - Psychiatric oriented to time, oriented to person, oriented to place, speech is normal, memory intact Results - Labs 04/09/18 12:42 04/09/18 12:42 Abnormal Lab Results - Last 24 Hours (Table) 04/09/18 04/09/18 Range/Units 12:42 12:42 WBC 12.4 H (3.8-10.6) k/uL Lymphocytes # (Manual) 5.58 H (1.0-4.8) k/uL BUN 18 H (7-17) mg/dL Creatinine 0.50 L (0.52-1.04) mg/dL Glucose 203 H (74-99) mg/dL AST 12 L (14-36) U/L Diabetes panel 04/09/18 Range/Units 12:42 Sodium 141 (137-145) mmol/L Potassium 3.9 (3.5-5.1) mmol/L Chloride 106 (98-107) mmol/L Carbon Dioxide 22 (22-30) mmol/L BUN 18 H (7-17) mg/dL Creatinine 0.50 L (0.52-1.04) mg/dL Glucose 203 H (74-99) mg/dL Calcium 9.3 (8.4-10.2) mg/dL AST 12 L (14-36) U/L ALT 30 (9-52) U/L Alkaline Phosphatase 100 (38-126) U/L Total Protein 6.5 (6.3-8.2) g/dL Albumin 4.2 (3.5-5.0) g/dL Calcium panel 04/09/18 Range/Units 12:42 Calcium 9.3 (8.4-10.2) mg/dL Albumin 4.2 (3.5-5.0) g/dL Pituitary panel 04/09/18 Range/Units 12:42 Sodium 141 (137-145) mmol/L Potassium 3.9 (3.5-5.1) mmol/L Chloride 106 (98-107) mmol/L Carbon Dioxide 22 (22-30) mmol/L BUN 18 H (7-17) mg/dL Creatinine 0.50 L (0.52-1.04) mg/dL Glucose 203 H (74-99) mg/dL Calcium 9.3 (8.4-10.2) mg/dL Adrenal panel 04/09/18 Range/Units 12:42 Sodium 141 (137-145) mmol/L Potassium 3.9 (3.5-5.1) mmol/L Chloride 106 (98-107) mmol/L Carbon Dioxide 22 (22-30) mmol/L BUN 18 H (7-17) mg/dL Creatinine 0.50 L (0.52-1.04) mg/dL Glucose 203 H (74-99) mg/dL Calcium 9.3 (8.4-10.2) mg/dL Total Bilirubin 0.4 (0.2-1.3) mg/dL AST 12 L (14-36) U/L ALT 30 (9-52) U/L Alkaline Phosphatase 100 (38-126) U/L Total Protein 6.5 (6.3-8.2) g/dL Albumin 4.2 (3.5-5.0) g/dL Assessment and Plan (1) Migraine aura, persistent, intractable Current Visit: Yes Status: Acute Code(s): G43.519 - PERST MIGRAINE AURA W/O CEREBRAL INFRC, NTRCT, W/O STAT MIGR SNOMED Code(s): 151666574 Plan: This patient had surgery on Tuesday which will very well. This morning she developed some severe facial pain throbbing with photophobia and has characteristics of migraine. CAT scan evaluation shows no intracranial problems CAT scan also does not show any orbital problems. We will treat this patient is a migraine or and I've recommended neurologic consultation for evaluation. We will empirically keep her on steroids and antibiotics. She has had an exaggerated amount of intranasal swelling. We will watch her closely. Nursing staff to call me if any problems should arise. Time with Patient: Greater than 30
[2018-04-09] MEDS: OXYMETAZOLINE 0.05% NASL SPRAY 1 SPRAY BOTTLE NASAL SCH (16:51)
[2018-04-09] MEDS: BUTALB/APAP/CAFF 50-325-40MG TAB PO PRN ×2 (17:10→21:40)
[2018-04-09] MEDS: methylPREDNISolone SOD SUCCI 125 MG/2 ML VIAL IV SCH ×2 (17:10→23:47)
[2018-04-09 17:11] LABS: Glucose,Whole Blood 234 mg/dL (75-99)
[2018-04-09] MEDS: PSEUDOEPHEDRINE 30 MG TAB PO PRN (18:04)
[2018-04-09] MEDS: INSULIN ASPART 100 UNIT/ML 1 ML 10 ML VIAL SQ SCH ×2 (18:05→21:14)
[2018-04-09] MEDS: HYDROcodone/APAP 5-325MG 1 EACH TAB PO PRN (19:53)
[2018-04-09 20:47] LABS: Glucose,Whole Blood 298 mg/dL (75-99)
[2018-04-09] MEDS: diphenhydrAMINE 25 MG CAP PO SCH (21:14)
[2018-04-09] MEDS ORDERED: LEVOFLOXACIN 500 MG TAB PO STA (22:46)
[2018-04-09] MEDS: HYDROmorphone 0.5 MG/0.5 ML SYRINGE IVP PRN (23:47)
[2018-04-10] MEDS: SODIUM CHLORIDE 0.9% 1,000 ML IV SCH ×3 (00:52→23:58)
[2018-04-10] MEDS: BUTALB/APAP/CAFF 50-325-40MG TAB PO PRN (02:07)
[2018-04-10] MEDS: PSEUDOEPHEDRINE 30 MG TAB PO PRN (03:02)
[2018-04-10] MEDS: HYDROmorphone 0.5 MG/0.5 ML SYRINGE IVP PRN ×7 (03:02→21:46)
[2018-04-10] MEDS: HYDROcodone/APAP 5-325MG 1 EACH TAB PO PRN ×5 (04:40→23:57)
[2018-04-10] MEDS: methylPREDNISolone SOD SUCCI 125 MG/2 ML VIAL IV SCH ×4 (05:24→23:58)
[2018-04-10] MEDS ORDERED: VANCOMYCIN IV PER PHARMACY 1 EACH MISC MISCELLANE PRN (07:05)
--- NOTE | 2018-04-10 07:05 | P.PN ---
Subjective Progress Note Date: 04/10/18 Principal diagnosis: Intractable headache This patient is doing slightly better this morning. MRI scan is scheduled. Computed tomography scan of the head and sinuses was reviewed with no evidence of anything more than postoperative swelling. Patient's not running a fever. She has no visual changes. Other than a pulsating type headache and photophobia she really has no other significant symptoms and no focal neurologic deficits. Neurologic consultation is pending. Objective - Vital Signs Vital signs: Vital Signs Temp 98.2 F 04/10/18 06:17 Pulse 75 04/10/18 06:17 Resp 17 04/10/18 06:17 BP 137/70 04/10/18 06:17 Pulse Ox 94 L 04/10/18 06:17 Intake & Output 04/09/18 04/10/18 04/10/18 18:59 06:59 18:59 Weight 86.183 kg Other: # Voids 1 - Constitutional General appearance: Present: average body habitus - EENT EENT Comment(s): Significant intranasal swelling is noted. No purulence is seen. Palpation of the orbits are soft. No periorbital swelling is noted. No increase in pain to percussion the sinuses. Eyes: Present: EOMI, PERRLA, normal appearance ENT: Present: normal oropharynx. Absent: hard of hearing - Neck Neck: Present: normal ROM. Absent: lymphadenopathy - Neurologic Neurologic: Present: CNII-XII intact. Absent: focal deficits - Psychiatric Psychiatric: Present: A&O x's 3, appropriate affect, intact judgment & insight - Labs CBC & Chem 7: 04/09/18 12:42 04/09/18 12:42 Labs: Abnormal Lab Results - Last 24 Hours (Table) 04/09/18 04/09/18 04/09/18 Range/Units 12:42 12:42 17:08 WBC 12.4 H (3.8-10.6) k/uL Lymphocytes # (Manual) 5.58 H (1.0-4.8) k/uL BUN 18 H (7-17) mg/dL Creatinine 0.50 L (0.52-1.04) mg/dL Glucose 203 H (74-99) mg/dL POC Glucose (mg/dL) 234 H (75-99) mg/dL AST 12 L (14-36) U/L 04/09/18 Range/Units 20:46 WBC (3.8-10.6) k/uL Lymphocytes # (Manual) (1.0-4.8) k/uL BUN (7-17) mg/dL Creatinine (0.52-1.04) mg/dL Glucose (74-99) mg/dL POC Glucose (mg/dL) 298 H (75-99) mg/dL AST (14-36) U/L Assessment and Plan (1) Migraine aura, persistent, intractable Current Visit: Yes Status: Acute Code(s): G43.519 - PERST MIGRAINE AURA W/O CEREBRAL INFRC, NTRCT, W/O STAT MIGR SNOMED Code(s): 647111336 Plan: patient is somewhat better today. We will add dexamethasone to her therapy and an MRI is scheduled. Antibiotic's her Levaquin. Patient has a reaction to penicillin the past for the throat closing off. Will add vancomycin. Time with Patient: Greater than 30
[2018-04-10] MEDS ORDERED: VANCOMYCIN 1,750 MG in SODIUM CHLORIDE 0.9% 500 ML IVPB ONE (07:30)
[2018-04-10] MEDS: LEVOFLOXACIN 500 MG TAB PO SCH (08:01)
[2018-04-10] MEDS: FLUTICASONE 50MCG/SPRAY NASAL 16GM EA NOSTRIL SCH (08:01)
[2018-04-10 08:02] LABS: Anion Gap 12 mmol/L; Blood Urea Nitrogen 12 mg/dL (7-17); Calcium 8.5 mg/dL (8.4-10.2); Carbon Dioxide 22 mmol/L (22-30); Chloride 105 mmol/L (98-107); Glucose 239 mg/dL (74-99); Potassium 4.2 mmol/L (3.5-5.1); Sodium 139 mmol/L (137-145)
[2018-04-10] MEDS: OXYMETAZOLINE 0.05% NASL SPRAY 1 SPRAY BOTTLE NASAL SCH ×3 (08:02→20:06)
[2018-04-10] MEDS: LISINOPRIL 10 MG TAB PO SCH (08:02)
[2018-04-10] MEDS: MELOXICAM 7.5 MG TAB PO SCH (08:02)
[2018-04-10] MEDS: INSULIN ASPART 100 UNIT/ML 1 ML 10 ML VIAL SQ SCH ×4 (08:04→21:26)
[2018-04-10] MEDS: diphenhydrAMINE 25 MG CAP PO SCH ×3 (08:04→20:08)
[2018-04-10 08:23] LABS: Glucose,Whole Blood 236 mg/dL (75-99)
[2018-04-10] MEDS ORDERED: LORazepam 2 MG/ML INJ IV STA (08:47)
[2018-04-10] MEDS ORDERED: LORATADINE 10 MG TAB PO SCH (09:00)
[2018-04-10] MEDS ORDERED: DEXAMETHASONE SOD PHOSPHATE 20 MG in DEXTROSE 5% IN WATER 50 ML IV ONE ×2 (09:00)
[2018-04-10] MEDS ORDERED: PANTOPRAZOLE 40 MG/10 ML VIAL IV SCH (09:00)
[2018-04-10] MEDS ORDERED: NON-FORMULARY DRUG (Moxifloxacin Hcl [Avelox] 400 MG) PO SCH (09:00)
[2018-04-10 10:16] LABS: Basophils % (A) 0 %; Eosinophils % (A) 0 %; HCT 36.8 % (34.0-46.0); HGB 12.4 gm/dL (11.4-16.0); Lymphocytes # (A) 1.6 k/uL (1.0-4.8); Lymphocytes % (A) 18 %; MCH 30.4 pg (25.0-35.0); MCHC 33.8 g/dL (31.0-37.0); MCV 89.8 fL (80.0-100.0); Mean Platelet Volume 7.4; Monocytes # (A) 0.4 k/uL (0-1.0); Monocytes % (A) 4 %; Neutrophils % (A) 77 %; Platelet Count 238 k/uL (150-450); RBC 4.09 m/uL (3.80-5.40); RDW 13.7 % (11.5-15.5); WBC 9.1 k/uL (3.8-10.6)
[2018-04-10 12:59] LABS: Glucose,Whole Blood 265 mg/dL (75-99)
--- NOTE | 2018-04-10 13:31 | MR ---
EXAMINATION TYPE: MR brain wo/w con DATE OF EXAM: 04/10/2018 COMPARISON: CT facial bones dated 04/09/2018 and MR brain dated 03/18/2018 HISTORY: Paranasal sinus surgery with persistent headaches and pain TECHNIQUE: Multiplanar, multisequence images of the brain and brainstem is performed without and with IV contras t, utilizing 8.5 mL intravenous Gadavist . FINDINGS: Diffusion weighted images demonstrate no evidence of a recent infarct or other diffusion ab normality. There is no extra-axial fluid collection. Few scattered areas of nonspecific white matter change are seen within the subcortical and periventricular white matter, with the largest in the lef t frontal lobe on FLAIR fat sat axial image 19 measuring 7 mm. The ventricular system and cisternal spaces are normal in size and appearance. The brain volume is age appropriate. Major intracranial fl ow voids are maintained. Again there is ectasia of the basilar tip similar to the priors. Midline structures demonstrate normal morphology. A 5 mm pineal gland cyst is again incidentally not ed slight mass effect upon the superior tectum. The cerebral aqueduct appears widely patent. The armament aircraft mechanic niocervical junction appears within normal limits. Post contrast images demonstrate no abnormal intr acranial enhancement. The dural venous sinuses appear patent. The globes are intact. There is circumf erential enhancing mucosal thickening within the maxillary sinuses and severe mucosal thickening of t he ethmoid sinuses extending into the frontal sinuses. No epidural fluid collection is seen to sugges t intracranial abscess. Circumferential mucosal thickening is also seen of the sphenoid sinuses. Cons idering there is variable degree of signal paranasal sinus disease could be atypical such as fungal i nfection. Small amount of fluid is present within the right mastoid air cells are seen on the prior e xam and to a lesser degree within the left mastoid air cells. Surgical augmentation of the ostiomeata l complexes is noted. IMPRESSION: 1. Extensive enhancing (likely indicating an acute inflammatory component) pansinusitis with variable signal. Therefore complex atypical infections such as fungal infection should be considered. No evid ence of osseous erosion or epidural fluid collection to suggest resultant epidural abscess. 2. Mild burden nonspecific white matter change, likely on the basis of chronic microangiopathy given the distribution. 3. Small volume fluid within the mastoid air cells, right greater than left, that should be correlate d clinically for point tenderness to exclude mastoiditis. 4. 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
--- NOTE | 2018-04-10 13:38 | P.CONS ---
History of Present Illness - Reason for Consult Consult date: 04/10/18 Medical management Requesting physician: Rodney Pool - Chief Complaint Increased pain and swelling post endoscopic sinus surgery - History of Present Illness This is a 52-year-old female patient of Dr. Olivia. Patient presented to the hospital after undergoing a functional endoscopic sinus surgery for ALLERGIC fungal sinusitis on Tuesday. Patient presented with increased swelling and headache on right side of head. Per Dr. Champion patient has complete nasal obstruction. CT of head and facial bones showed postop changes and pansinusitis. Possible migraine due to throbbing type pain and photophobia migrainous suspect per Dr. Champion. Patient has a significant history for chest pain, GERD, hyperlipidemia, hypertension, musculoskeletal disorder and osteoarthritis. Patient received Decadron 20 mg and is currently on methylprednisolone 60 mg every 6 hours. Patient is currently on antibiotics vancomycin and Levaquin. Patient states swelling and pain has decreased since yesterday. Pain control with Dilaudid and [place] has been her ordered per Dr. Champion. Neurology has also been consulted and MRI of the brain has been ordered. Patient denies chest pain or shortness of breath at this time. White blood cell count currently 9.1 Review of Systems Otherwise unremarkable please see HPI Past Medical History Past Medical History: Chest Pain / Angina, GERD/Reflux, Hyperlipidemia, Hypertension, Musculoskeletal Disorder, Osteoarthritis (OA) Additional Past Medical History / Comment(s): HERNIATED DISCS, ARTHRITIS WITH BACK PAIN., HOSPITALIZED 11/18/16-11/21/16 AT [facility] FOR CHEST PAIN & HEADACHE WITH PAIN PROCEDURE DONE. History of Any Multi-Drug Resistant Organisms: None Reported Past Surgical History: Cholecystectomy, Heart Catheterization, Hysterectomy, Tonsillectomy Additional Past Surgical History / Comment(s): CYST REMOVED FROM ABD DURING HYSTERECTOMY SX, sinus surgery 04/07 Past Anesthesia/Blood Transfusion Reactions: No Reported Reaction Past Psychological History: No Psychological Hx Reported Smoking Status: Current some day smoker Past Alcohol Use History: None Reported Additional Past Alcohol Use History / Comment(s): STARTED SMOKING AT AGE 15, SMOKES less than 1/2 PPD. Past Drug Use History: None Reported - Past Family History Father Additional Family Medical History / Comment(s): triple bypass, stents Mother Family Medical History: Cancer, Hypertension Additional Family Medical History / Comment(s): HX OF BREAST ,COLON AND LUNG CANCER Brother(s) Additional Family Medical History / Comment(s): heart attacks, stents Medications and Allergies Home Medications Medication Instructions Recorded Confirmed Type Fluticasone Nasal [place] [Flonase 1 spray EA NOSTRIL DAILY 03/15/18 04/09/18 History Nasal [place]] Butalb/APAP/Caff 50-325-40Mg 1 tab PO Q4H PRN #12 tablet 03/21/18 04/09/18 Rx [Fioricet 50-325-40] HYDROcodone/APAP 5-325MG [[place] 1 tab PO Q4HR PRN 04/09/18 04/09/18 History 5-325] Levofloxacin [Levaquin] 500 mg PO DAILY 04/09/18 04/09/18 History Lisinopril [Zestril] 20 mg PO DAILY 04/09/18 04/09/18 History Meloxicam [Mobic] 15 mg PO DAILY 04/09/18 04/09/18 History predniSONE 20 mg PO DAILY 04/09/18 04/09/18 History Allergies Allergy/AdvReac Type Severity Reaction Status Date / Time codeine Allergy Dyspnea Verified 04/09/18 14:49 penicillin V Allergy Swelling Verified 04/09/18 14:49 Physical Exam Vitals: Vital Signs Temp Pulse Pulse Resp BP BP Pulse Ox 04/10/18 06:17 98.2 F 75 17 137/70 94 L 04/09/18 22:56 97.5 F L 80 18 127/77 92 L 04/09/18 19:45 80 18 04/09/18 17:20 97.2 F L 86 18 166/75 94 L 04/09/18 15:32 99.9 F H 96 16 154/72 98 04/09/18 13:32 68 16 155/71 96 Intake and Output 04/09/18 04/10/18 04/10/18 22:59 06:59 14:59 Other: # Voids 2 1 Head normocephalic. Right facial tenderness and mild swelling. Neck supple Lungs clear to auscultation bilaterally no wheezing or crackles Heart regular rate and rhythm S1-S2, no rub or gallop Abdomen is soft nontender nondistended positive bowel sounds no hepatosplenomegaly Extremities no edema Neuro alert and orientated to 3 Results CBC & Chem 7: 04/10/18 07:22 04/10/18 07:22 Labs: Abnormal Lab Results - Last 24 Hours (Table) 04/09/18 04/09/18 04/10/18 Range/Units 17:08 20:46 07:22 Creatinine 0.50 L (0.52-1.04) mg/dL Glucose 239 H (74-99) mg/dL POC Glucose (mg/dL) 234 H 298 H (75-99) mg/dL 04/10/18 04/10/18 Range/Units 07:46 12:36 Creatinine (0.52-1.04) mg/dL Glucose (74-99) mg/dL POC Glucose (mg/dL) 236 H 265 H (75-99) mg/dL Assessment and Plan Assessment: 1. Increased pain and swelling post functional endoscopic sinus surgery. CT of face and head showing postoperative changes in pinnal sinusitis. Patient currently on vancomycin and Levaquin. Currently receiving Solu-Medrol 60mg every 6 hours. Pain control with Dilaudid and [place]. MRI has been ordered 2. Migraine with aura. Neurology has been consulted 3. History of hypertension continue lisinopril. 4. Hyperglycemia due to steroids. Continue sliding scale insulin 5. Nicotine dependence. Patient educated greater than 3 minutes on smoking cessation DVT prophylaxis SCDs, GI prophylaxis Protonix Thank you for this Consultation. Time with Patient: Greater than 30 (Greater than 60% of the total time spent in counseling and coordination of care.I performed an examination of the patient and discussed their management with the Nurse Practitioner. I have reviewed the Nurse Practitioner's notes and agree with the documented findings and plan of care)
[2018-04-10] MEDS: VANCOMYCIN 1,500 MG in SODIUM CHLORIDE 0.9% 250 ML IVPB SCH ×2 (15:28→23:57)
[2018-04-10 15:46] VITALS: RESP 18
[2018-04-10 17:27] LABS: Glucose,Whole Blood 376 mg/dL (75-99)
[2018-04-10 20:29] LABS: Glucose,Whole Blood 379 mg/dL (75-99)
[2018-04-10] MEDS ORDERED: ZOLPIDEM 5 MG TAB PO PRN (22:10)
[2018-04-10] MEDS ORDERED: MAGNESIUM HYDROXIDE 2,400 MG/10 ML CUP PO PRN (22:11)
[2018-04-11] MEDS: HYDROmorphone 0.5 MG/0.5 ML SYRINGE IVP PRN ×3 (01:29→08:13)
[2018-04-11] MEDS: PSEUDOEPHEDRINE 30 MG TAB PO PRN (03:45)
[2018-04-11] MEDS: HYDROcodone/APAP 5-325MG 1 EACH TAB PO PRN ×2 (03:45→09:24)
[2018-04-11] MEDS: methylPREDNISolone SOD SUCCI 125 MG/2 ML VIAL IV SCH (05:25)
[2018-04-11] MEDS: SODIUM CHLORIDE 0.9% 1,000 ML IV SCH (05:28)
[2018-04-11 05:55] VITALS: BP 168/77; PULSE 73; TEMP 96.6
[2018-04-11 07:22] LABS: Glucose,Whole Blood 257 mg/dL (75-99)
[2018-04-11] MEDS ORDERED: PANTOPRAZOLE 40 MG TABLET PO SCH (07:30)
[2018-04-11] MEDS: FLUTICASONE 50MCG/SPRAY NASAL 16GM EA NOSTRIL SCH (08:08)
[2018-04-11] MEDS: MELOXICAM 7.5 MG TAB PO SCH (08:08)
[2018-04-11] MEDS: LISINOPRIL 10 MG TAB PO SCH (08:08)
[2018-04-11] MEDS: LEVOFLOXACIN 500 MG TAB PO SCH (08:08)
[2018-04-11] MEDS: OXYMETAZOLINE 0.05% NASL SPRAY 1 SPRAY BOTTLE NASAL SCH (08:09)
[2018-04-11] MEDS: VANCOMYCIN 1,500 MG in SODIUM CHLORIDE 0.9% 250 ML IVPB SCH (08:13)
[2018-04-11] MEDS: INSULIN ASPART 100 UNIT/ML 1 ML 10 ML VIAL SQ SCH (08:13)
[2018-04-11] MEDS: diphenhydrAMINE 25 MG CAP PO SCH (08:13)
--- NOTE | 2018-04-11 08:21 | P.PN ---
Subjective Progress Note Date: 04/11/18 Principal diagnosis: Headache, migraine, anxiety, nasal swelling This patient was admitted with an intractable pulsatile headache which appeared to be a migraine flareup. She is status post surgery last Tuesday and did well for 48 hours afterwards when she developed this right-sided throbbing headache with photophobia. She was treated medically and has done well. She is under a large amount of anxiety because she is using only breadwinner in the family, her does not work. She stressed out because she needs to get back to work to make money for the family. She has had a tremendous amount of anxiety issues. Neurologic\psychiatric care was recommended. I did review the results of the patient's CAT scan and MRI demonstrating successful surgery and no evidence of any orbital or intracranial issues. Headaches all appear to be migrainous in etiology possibly stress-induced. Objective - Vital Signs Vital signs: Vital Signs Temp 96.6 F L 04/11/18 05:55 Pulse 73 04/11/18 05:55 Resp 18 04/11/18 05:55 BP 168/77 04/11/18 05:55 Pulse Ox 96 04/11/18 05:55 Intake & Output 04/10/18 04/11/18 04/11/18 18:59 06:59 18:59 Other: # Voids 2 2 - Constitutional General appearance: Present: average body habitus - EENT Eyes: Present: PERRLA. Absent: ptosis ENT: Present: hearing grossly normal, normal oropharynx. Absent: pharyngeal erythema - Neck Neck: Present: normal ROM. Absent: lymphadenopathy, rigidity - Labs CBC & Chem 7: 04/10/18 07:22 04/10/18 07:22 Labs: Abnormal Lab Results - Last 24 Hours (Table) 04/10/18 04/10/18 04/10/18 Range/Units 07:46 12:36 17:21 POC Glucose (mg/dL) 236 H 265 H 376 H (75-99) mg/dL 04/10/18 04/11/18 Range/Units 20:29 07:19 POC Glucose (mg/dL) 379 H 257 H (75-99) mg/dL Microbiology - Last 24 Hours (Table) 04/09/18 12:42 Blood Culture Gram Stain - Preliminary Blood 04/09/18 12:42 Blood Culture - Final Blood Assessment and Plan (1) Migraine aura, persistent, intractable Narrative/Plan: This patient is doing much better today. I did review the results of all of her imaging it appeared unremarkable. She has a normal amount of postoperative nasal swelling after sinus surgery. Her headaches appear to be migrainous in etiology and I'm recommending that she continue evaluation and treatment with the neurologist. She also has a high anxiety component and a psychiatrist may be of benefit. Her migraine headache appears to be much improved and she is requesting discharge. After she leaves the hospital she'll go directly to my office where I will decongest her and help establish a normal nasal airway. She will be discharged on medications prescribed to the office when she comes to the office today at 11:30 AM. Current Visit: Yes Status: Acute Code(s): G43.519 - PERST MIGRAINE AURA W/O CEREBRAL INFRC, NTRCT, W/O STAT MIGR SNOMED Code(s): 699870967 Time with Patient: Greater than 30
[2018-04-11 08:26] LABS: Basophils % (A) 0 %; Eosinophils % (A) 0 %; HCT 34.7 % (34.0-46.0); HGB 11.7 gm/dL (11.4-16.0); Lymphocytes # (A) 1.4 k/uL (1.0-4.8); Lymphocytes % (A) 13 %; MCH 30.1 pg (25.0-35.0); MCHC 33.7 g/dL (31.0-37.0); MCV 89.2 fL (80.0-100.0); Mean Platelet Volume 7.9; Monocytes # (A) 0.5 k/uL (0-1.0); Monocytes % (A) 5 %; Neutrophils # (A) 8.8 k/uL (1.3-7.7); Neutrophils % (A) 81 %; Platelet Count 200 k/uL (150-450); RBC 3.89 m/uL (3.80-5.40); RDW 13.7 % (11.5-15.5); WBC 10.9 k/uL (3.8-10.6)
--- NOTE | 2018-04-11 08:30 | CONS ---
CONSULTATION DATE OF CONSULTATION: 04/10/2018. CHIEF COMPLAINT: Headache. HISTORY OF PRESENT ILLNESS: Mrs. Boss is a pleasant 52-year-old female who is being evaluated today on 04/10/2018 by the neurology service per the request of Dr. Pool for a headache. The patient has been having sinus issues for over 2 months. She started having a right periorbital headache over 2 months ago and was thought to have acute sinusitis. She had been treated with 2 different antibiotics with no improvement. She did see Dr. Pool who diagnosed her with pansinusitis which was likely fungal in etiology. She had significant impaction and had to undergo surgery which was done this past Tuesday. Yesterday, she had significant right facial swelling and a severe headache which she rated at 10/10 in intensity, mainly in the frontal region. She was brought into [facility] for further management. A CT scan of the brain was done, which showed no intracranial abnormalities. There was evidence of continued pansinusitis and postsurgical changes. An MRI of the brain was done which showed significant enhancement involving her sinuses with no intracranial abnormalities. Her CBC was normal. Her basic metabolic profile was normal except for hyperglycemia at 239. Overnight, her headache significantly improved. At the time of my evaluation, she rates her headache at 5/10 in intensity. She denies any visual changes or dizziness. She denies any lateralizing numbness or weakness. PAST MEDICAL HISTORY: Sinusitis with recent sinus surgery, gastroesophageal reflux disease, dyslipidemia, hypertension, arthritis, lumbar displaced disc disease, history of hysterectomy, tonsillectomy, cholecystectomy. SOCIAL HISTORY: The patient is a current every day smoker. She denies any alcohol or drug use. FAMILY HISTORY: Positive for cancer, heart disease, and hypertension. HOME MEDICATIONS: Reviewed in the chart. ALLERGIES: CODEINE and PENICILLIN. REVIEW OF SYSTEMS: As mentioned above and otherwise negative. PHYSICAL EXAM: Vital signs show a temperature of 97.3, pulse 98, respirations 18, blood pressure 138/73. GENERAL APPEARANCE: The patient is a well-developed female who appears to be in no acute distress. HEENT: Normocephalic, atraumatic, no facial asymmetry is seen. NECK: Supple with no masses felt. CARDIOVASCULAR: Regular rate and rhythm. ABDOMEN: Nontender, nondistended. Extremities showed no edema or clubbing. NEUROLOGICAL EXAM: The patient is awake and oriented x3. Speech and language are normal. Strength is full in all 4 extremities. Sensory exam was normal to light touch in all 4 extremities. No facial asymmetry is seen on cranial nerve testing. No tremors or seizure-like activity is seen. IMPRESSION: 1. Secondary headache. 2. Pansinusitis. 3. Recent sinus surgery. 4. Hypertension. RECOMMENDATION: The patient's headache has significantly improved at this time. Her CT scan of the brain and MRI of the brain showed no intracranial abnormalities. Her headaches are thought to be due to her sinus issue. ENT is following. No further inpatient neurological workup is needed. Continue analgesics as needed. I will continue to follow with you as needed. Thank you for allowing me to participate in the care of your patient. If you have any questions, please feel free to contact me. FOREIGN / RYNE: [id number] /
[2018-04-11 08:56] LABS: Anion Gap 10 mmol/L; Blood Urea Nitrogen 12 mg/dL (7-17); Calcium 8.7 mg/dL (8.4-10.2); Carbon Dioxide 23 mmol/L (22-30); Chloride 106 mmol/L (98-107); Glucose 259 mg/dL (74-99); Sodium 139 mmol/L (137-145)
--- NOTE | 2018-04-11 13:48 | P.PN ---
Subjective Progress Note Date: 04/11/18 This is a 52-year-old female patient of Dr. Olivia. Patient presented to the hospital after undergoing a functional endoscopic sinus surgery for ALLERGIC fungal sinusitis on Tuesday. Patient presented with increased swelling and headache on right side of head. Per Dr. Champion patient has complete nasal obstruction. CT of head and facial bones showed postop changes and pansinusitis. Possible migraine due to throbbing type pain and photophobia migrainous suspect per Dr. Champion. Patient has a significant history for chest pain, GERD, hyperlipidemia, hypertension, musculoskeletal disorder and osteoarthritis. Patient received Decadron 20 mg and is currently on methylprednisolone 60 mg every 6 hours. Patient is currently on antibiotics vancomycin and Levaquin. Patient states swelling and pain has decreased since yesterday. Pain control with Dilaudid and [place] has been her ordered per Dr. Champion. Neurology has also been consulted and MRI of the brain has been ordered. Patient denies chest pain or shortness of breath at this time. White blood cell count currently 9.1 04/11/2018 Patient is feeling better today. She is scheduled for discharge. She'll follow-up with Dr. Champion this morning in the office. Patient also seen by neurology during this admission regarding the headaches. They felt that it was related to her sinusitis. MRI of the brain shows extensive enhancing pansinusitis. Therefore complex atypical infection such as a fungal infection should be considered no evidence of osseous erosion or epidural fluid collection to suggest abscess. Patient is eager for discharge home. Objective - Vital Signs Vital signs: Vital Signs Temp 96.6 F L 04/11/18 05:55 Pulse 73 04/11/18 05:55 Resp 18 04/11/18 05:55 BP 168/77 04/11/18 05:55 Pulse Ox 96 04/11/18 05:55 Intake & Output 04/10/18 04/11/18 04/11/18 18:59 06:59 18:59 Other: # Voids 2 2 - Exam Head normocephalic Neck supple Lungs clear to auscultation bilaterally no wheezing or crackles Heart regular rate and rhythm S1-S2, no rub or gallop Abdomen is soft nontender nondistended positive bowel sounds no hepatosplenomegaly Extremities no edema Neuro alert and orientated to 3 - Labs CBC & Chem 7: 04/11/18 07:43 04/11/18 07:43 Labs: Abnormal Lab Results - Last 24 Hours (Table) 04/10/18 04/10/18 04/11/18 Range/Units 17:21 20:29 07:19 WBC (3.8-10.6) k/uL Neutrophils # (1.3-7.7) k/uL Creatinine (0.52-1.04) mg/dL Glucose (74-99) mg/dL POC Glucose (mg/dL) 376 H 379 H 257 H (75-99) mg/dL 04/11/18 04/11/18 Range/Units 07:43 07:43 WBC 10.9 H (3.8-10.6) k/uL Neutrophils # 8.8 H (1.3-7.7) k/uL Creatinine 0.48 L (0.52-1.04) mg/dL Glucose 259 H (74-99) mg/dL POC Glucose (mg/dL) (75-99) mg/dL Microbiology - Last 24 Hours (Table) 04/09/18 12:42 Blood Culture Gram Stain - Preliminary Blood Blood Culture - Preliminary Coagulase Negative Staph 04/09/18 12:42 Blood Culture - Final Blood Assessment and Plan Assessment: 1. Increased pain and swelling status post functional endoscopic sinus surgery. CT of face and head showing postoperative changes in paranasal sinuses. Patient currently on vancomycin and Levaquin. Currently receiving Solu-Medrol 60mg every 6 hours. Pain control with Dilaudid and [place]. MRI of the brain showing extensive enhancing pansinusitis with a variable signal. Therefore complex atypical infection such as a fungal infection should be considered. No evidence of osseous erosion or epidural fluid collection to suggest epidural abscess noted. We have consulted infectious disease for further evaluation yesterday. However consult has been canceled and ENT has discharge patient home with Levaquin and prednisone 2. Migraine with aura. Patient seen and evaluated by neurology. Likely symptoms are related to patient's sinusitis 3. History of hypertension continue lisinopril. 4. Hyperglycemia due to steroids. Should improve now that patient has been switched over to oral prednisone 5. Nicotine dependence. Patient educated greater than 3 minutes on smoking cessation DVT prophylaxis SCDs, GI prophylaxis Protonix Patient is stable for discharge. We'll have her follow-up with her PCP in 1 week.
== END 2018-04-11 11:03 | disposition home or self-care (01) ==
LOC: EC 11:13 → 4MS4W 14:24
PROVIDERS: ADMIT Otolaryngology; ATTEND Otolaryngology
DX: J32.4 Chronic pansinusitis (principal); G43.519 Persistent migraine aura without cerebral infarction, intractable, without status migrainosus; R73.9 Hyperglycemia, unspecified; T38.0X5A Adverse effect of glucocorticoids and synthetic analogues, initial encounter; R04.0 Epistaxis; K21.9 Gastro-esophageal reflux disease without esophagitis; E78.5 Hyperlipidemia, unspecified; I10 Essential (primary) hypertension; F41.9 Anxiety disorder, unspecified; F17.210 Nicotine dependence, cigarettes, uncomplicated; G89.18 Other acute postprocedural pain; Z98.890 Other specified postprocedural states; M19.90 Unspecified osteoarthritis, unspecified site; Z79.51 Long term (current) use of inhaled steroids; Z79.1 Long term (current) use of non-steroidal anti-inflammatories (NSAID); Z79.899 Other long term (current) drug therapy; Z88.0 Allergy status to penicillin; Z88.5 Allergy status to narcotic agent; Z90.49 Acquired absence of other specified parts of digestive tract; Z90.710 Acquired absence of both cervix and uterus; Z82.49 Family history of ischemic heart disease and other diseases of the circulatory system; Z80.3 Family history of malignant neoplasm of breast; Z80.0 Family history of malignant neoplasm of digestive organs; Z80.1 Family history of malignant neoplasm of trachea, bronchus and lung
CPT/HCPCS: 99285 ×2; 96375 ×10; 96376 ×6; 96361 ×4; 96372 ×2; 96365; 96366 ×2; 96367; 96368; 36415; 80053; 80048 ×2; 83605; 85025 ×3; 87040; 87077; 87186; 70487; 70450; 70553; G0378 ×3; J3030; J3370 ×2; J2060; J1200; J1100; J2765; J2930 ×3; J2405; J0696; J1885; J2270; C9113; A9581; J1170 ×3

== ENCOUNTER → 2018-07-07 | Outpatient (CLI) | payer OTHER ==
--- NOTE | 2018-07-07 16:04 | CT ---
EXAMINATION TYPE: CT sinus wo con DATE OF EXAM: 07/07/2018 COMPARISON: 04/09/2018 HISTORY: Sinus surgery 3 months ago. Still having sinus pain and pain behind right eye. CT DLP: 630.[address] of the paranasal sinuses was performed in the axial and coronal planes. Bone and soft tissue settings are submitted. The paranasal sinuses demonstrate normal aeration and development. Bilateral medial maxillary antrectomy and partial ethmoidectomy. Moderate mucosal thickening involvin g the bilateral maxillary sinuses and remaining ethmoid air cells. Moderate fecal thickening and opac ification right frontal sinus with sparing of the left frontal sinus and sphenoid sinus. The nasal septum is midline. No bony destructive changes are seen within the field of view. IMPRESSION: Postoperative changes and chronic sinusitis as noted.
== END | disposition home or self-care (01) ==
LOC: RADCTMAIN 15:41
PROVIDERS: ATTEND Otolaryngology
DX: J32.9 Chronic sinusitis, unspecified (principal); Z98.890 Other specified postprocedural states
CPT/HCPCS: 70486

== ENCOUNTER → 2018-08-25 | Outpatient (CLI) | payer OTHER ==
--- NOTE | 2018-08-25 12:07 | NM ---
EXAMINATION TYPE: NM bone 3 phase DATE OF EXAM: 08/25/2018 COMPARISON: Sinus CT July 07, 2018. HISTORY: Right-sided maxillary osteomyelitis. Right-sided face and teeth pain with throbbing sensatio n for 5 months. History of sinus surgery April 02, 2018. Triple phase bone scintigraphy was performed following the injection of 23.8 mCi Tc 99m MDP. Immedia te images and 3 hours post injection images acquired of the head and neck region. FINDINGS: Dynamic arterial and soft tissue phase images show no suspicious asymmetric uptake to the right maxil celestino or mandibular region versus opposite left side. Delayed phase images show no suspicious focal as ymmetric increased radiotracer uptake. IMPRESSION: No three-phase increased radiotracer uptake to suggest acute osteomyelitis right maxillar y region at area of clinical concern.
== END ==
LOC: RADNMMAIN 07:06
PROVIDERS: ATTEND Otolaryngology Otolaryngology/Facial Plastic Surgery
DX: M27.2 Inflammatory conditions of jaws (principal)
CPT/HCPCS: 78315; A9503

== ENCOUNTER → 2019-10-31 | Outpatient (CLI) | payer BC ==
--- NOTE | 2019-10-31 14:19 | CT ---
EXAMINATION TYPE: CT abdomen pelvis w con DATE OF EXAM: 10/31/2019 HISTORY: Diverticulitis per order. Left lower quadrant pain. CT DLP: 773.40mGycm Automated Exposure Control for Dose Reduction was Utilized. CONTRAST: CT scan of the abdomen and pelvis is performed with IV Contrast, patient injected with 100 ml mL of I sovue 300. COMPARISON: None. FINDINGS: LUNG BASES: Mild atelectatic change and/or fibrosis posteriorly in both bases. LIVER/GB: Liver is low dense consistent with diffuse fatty infiltration. Cholecystectomy clips are se en. PANCREAS: Mild generalized fat replaced atrophy or small sized pancreas. SPLEEN: No significant abnormality is seen. ADRENALS: Slight low dense nodular thickening central left adrenal gland maximum is 35 favoring benig n. KIDNEYS: Symmetrical commercially uptake and excretion without hydronephrosis seen bilaterally. No in traluminal mass or calculus and bladder. BOWEL: Oral contrast reaches level of proximal transverse colon. No suspicious small or large bowel d ilatation. Surgical sutures from appendectomy at base of cecum. Mild to moderate prominence of fecal material in the cecum. Mild prominence of fecal material near the splenic flexure. Sjfm-dp-xxryettr w all thickening in the sigmoid colon without significant surrounding fat stranding. No significant div erticular disease. UTERUS/ADNEXA: Uterus is surgically absent or markedly atrophic. Occasional pelvic phleboliths. LYMPH NODES: No greater than 1cm abdominal or pelvic lymph nodes are appreciated. OSSEOUS STRUCTURES: No significant abnormality is seen. OTHER: Surgical sutures and/or clips anterior upper pelvis just below rectus muscles are identified t o the left of midline. Vertical scar in the midline from umbilicus extending over anterior pelvis is noted presumed product of hysterectomy. IMPRESSION: 1. No significant colonic diverticulosis or acute diverticulitis. Asiz-gg-ebotxfop wall thickening si gmoid colon could reflect product of poor distention, cannot exclude underlying uncomplicated acute c olitis. Correlate clinically. Overall nonobstructive bowel gas pattern. Additional area of mild colit is proximal to mid transverse colon cannot be excluded. There are areas of mild to moderate fecal sta sis involving the cecum and portion of left colon near splenic flexure.
== END | disposition home or self-care (01) ==
LOC: RADCTMAIN 10:38
PROVIDERS: ATTEND Nurse Practitioner Family
DX: K59.8 Other specified functional intestinal disorders (principal)
CPT/HCPCS: 74177; Q9967

== ENCOUNTER → 2020-07-16 | Outpatient (CLI) | payer BC ==
--- NOTE | 2020-07-17 08:20 | MM ---
Reason for exam: screening (asymptomatic). Last mammogram was performed 4 years ago. History: Patient is postmenopausal. Family history of breast cancer in maternal aunt at age 50, breast cancer in maternal cousin at age 30, and breast cancer in mother at age 60. Benign excisional biopsy of the right breast, November 22, 2000. Benign ultrasound-guided core biopsy of the right breast, September 26, 2000. Core biopsy of the right breast. Took estrogen for 6 months. Physical Findings: A clinical breast exam by your physician is recommended on an annual basis and results should be correlated with mammographic findings. MG 3D Screening Mammo W/Cad Bilateral CC and MLO view(s) were taken. Prior study comparison: July 21, 2016, bilateral MG screening mammo w CAD. January 27, 2015, bilateral MG diagnostic mammo w CAD CHRISTIN. The breast tissue is heterogeneously dense. This may lower the sensitivity of mammography. There are benign appearing round calcifications. There is no discrete abnormality. ASSESSMENT: Benign, BI-RAD 2 RECOMMENDATION: Routine screening mammogram of both breasts in 1 year.
== END | disposition home or self-care (01) ==
LOC: RADMAMWWP 08:31
PROVIDERS: ATTEND Family Medicine
DX: Z12.31 Encounter for screening mammogram for malignant neoplasm of breast (principal)
CPT/HCPCS: 77063; 77067

== ENCOUNTER → 2021-01-13 | Outpatient (CLI) | payer BC ==
--- NOTE | 2021-01-14 10:42 | BD ---
EXAMINATION TYPE: Axial Bone Density DATE OF EXAM: 01/13/2021 COMPARISON: NONE CLINICAL HISTORY: Height: 5 FT 8 1/2 IN Weight: 180 FRAX RISK QUESTIONS: Alcohol (3 or more units per day): NO Family History (Parent hip fracture): NO Glucocorticoids (More than 3mos): YES (Ex: prednisone, prednisolone, methylprednisolone, dexamethasone, and hydrocortisone). History of Fracture in Adulthood: NO Secondary Osteoporosis: 1. Type 1 Diabetes: NO 2. Hyperthyroidism: NO 3. Menopause before 45: YES 4. Malnutrition: NO 5. Chronic liver disease: NO Rheumatoid Arthritis: NO Current Tobacco Use: YES RISK FACTORS HISTORY OF: Surgery to Spine/Hip(right/left)/Wrist (right/left): NO Family History of Osteoporosis: NO Active: YES Diet low in dairy products/other sources of calcium: NO Postmenopausal woman: TOTAL HYST AGE 32 Take estrogen and/or progesterone medications: NATURAL SUPPLEMENTS NOT NOW Lost more than 2 inches in height since high school: YES MEDICATIONS: Additional Medications: LISINOPRIL, TRISTEN TRY PTO LINE, METFORMIN, Additional History: BILATERAL CARPAL TUNNEL SURG EXAM MEASUREMENTS: Bone mineral densitometry was performed using the PinMyPet System. Bone mineral density as measured about the Lumbar spine is: ----- L1-L4(G/cm2): 1.116 T Score Values are as follows: ----- L2: -1.1 ----- L3: -0.1 ----- L4: -0.2 ----- L1-L4: -0.5 BASELINE Bone mineral density about the R hip (g/cm2): 0.829 Bone mineral density about the L hip (g/cm2): 0.984 T Score values are as follows: -----R Neck: -1.5 -----L Neck: -0.4 -----R Total: -1.0 -----L Total: -0.7 BASELINE IMPRESSION: Osteopenia (T Score between -2.5 and -1). There is slightly increased risk of fracture and the patient may be considered for treatment. Re-Screen 2-5 years. NOTE: T-SCORE=SD OF THE YOUNG ADULT MEAN.
== END | disposition home or self-care (01) ==
LOC: RADBDWWP 15:17
PROVIDERS: ATTEND Family Medicine
DX: M81.8 Other osteoporosis without current pathological fracture (principal); M85.80 Other specified disorders of bone density and structure, unspecified site
CPT/HCPCS: 77080

== ENCOUNTER 2021-04-25 11:32 | Observation (INO) | payer BC ==
[2021-04-25] MEDS ORDERED: ASPIRIN 81 MG PO STA (11:53)
[2021-04-25] MEDS ORDERED: NITROGLYCERIN OINT 1 INCH/GM PACKET TOPICAL STA (11:53)
--- NOTE | 2021-04-25 11:55 | ED ---
General Adult HPI - General Chief complaint: Chest Pain Stated complaint: Chest Pain Time Seen by Provider: 04/25/21 11:38 Source: patient, family, RN notes reviewed Mode of arrival: wheelchair Limitations: physical limitation - History of Present Illness Initial comments: Patient is a pleasant 55-year-old female presenting to the emergency Department with complaints of chest discomfort. Onset of symptoms was a couple of days ago. Discomfort was sharp however now is more of a burning sensation. Discomfort is fairly persistent. Discomfort is rated 4/10. No radiation. Discomfort does slightly worsen with deep breaths. No associated dyspnea, n ausea or diaphoresis. Patient does feel a little bit dizzy. No history of similar symptoms from sleep. No leg pain or leg swelling. Patient does have a strong family history of cardiac disease. - Related Data Home Medications Medication Instructions Recorded Confirmed lisinopriL [Zestril] 20 mg PO DAILY 04/09/18 04/25/21 Amitriptyline HCl [Elavil] 150 mg PO HS 04/25/21 04/25/21 Aspirin EC [Ecotrin] 325 mg PO QID PRN 04/25/21 04/25/21 Ergocalciferol [Vitamin D2 (1250 1,250 mcg PO MO 04/25/21 04/25/21 Mcg = 48069 Iu)] HYDROcodone/APAP 10-325MG [[place] 1 tab PO BID PRN 04/25/21 04/25/21 10-325] metFORMIN HCL [Glucophage] 1,000 mg PO BID 04/25/21 04/25/21 Allergies Allergy/AdvReac Type Severity Reaction Status Date / Time codeine Allergy Dyspnea/Hea Verified 04/25/21 12:21 rtburn morphine Allergy Dyspnea/Hea Verified 04/25/21 12:21 rtburn penicillin V Allergy Swelling Verified 04/25/21 12:21 Review of Systems ROS Statement: Those systems with pertinent positive or pertinent negative responses have been documented in the HPI. ROS Other: All systems not noted in ROS Statement are negative. Constitutional: Denies: fever Eyes: Denies: eye pain ENT: Denies: ear pain Respiratory: Denies: cough, dyspnea Cardiovascular: Reports: as per HPI, chest pain Endocrine: Denies: fatigue Gastrointestinal: Denies: abdominal pain Genitourinary: Denies: dysuria Musculoskeletal: Denies: back pain Skin: Denies: rash Neurological: Denies: weakness Past Medical History Past Medical History: Chest Pain / Angina, GERD/Reflux, Hyperlipidemia, Hypertension, Musculoskeletal Disorder, Osteoarthritis (OA) Additional Past Medical History / Comment(s): HERNIATED DISCS, ARTHRITIS WITH BACK PAIN., HOSPITALIZED 11/18/16-11/21/16 AT [facility] FOR CHEST PAIN & HEADACHE WITH PAIN PROCEDURE DONE. History of Any Multi-Drug Resistant Organisms: None Reported Past Surgical History: Cholecystectomy, Heart Catheterization, Hysterectomy, Tonsillectomy Additional Past Surgical History / Comment(s): CYST REMOVED FROM ABD DURING HY STERECTOMY SX, sinus surgery 04/07 Past Anesthesia/Blood Transfusion Reactions: No Reported Reaction Past Psychological History: No Psychological Hx Reported Smoking Status: Current every day smoker Past Alcohol Use History: None Reported Past Drug Use History: None Reported - Past Family History Father Family Medical History: Coronary Artery Disease (CAD) Additional Family Medical History / Comment(s): triple bypass, stents Mother Family Medical History: Cancer, Hypertension Additional Family Medical History / Comment(s): HX OF BREAST ,COLON AND LUNG CANCER Brother(s) Additional Family Medical History / Comment(s): heart attacks, stents General Exam Limitations: physical limitation General appearance: alert, in no apparent distress Head exam: Present: normocephalic Eye exam: Present: normal appearance Neck exam: Present: normal inspection Respiratory exam: Present: normal lung sounds bilaterally. Absent: chest wall tenderness Cardiovascular Exam: Present: regular rate, normal rhythm, normal heart sounds Expanded Peripheral pulses: 2+: Radial (R), Radial (L), Dorsalis Pedis (R), Dorsalis Pedis (L) GI/Abdominal exam: Present: soft. Absent: tenderness Extremities exam: Present: normal inspection. Absent: pedal edema, calf tenderness Neurological exam: Present: alert Psychiatric exam: Present: normal affect, normal mood Skin exam: Present: normal color Course Vital Signs 04/25/21 11:33 Temperature 97.4 F L Pulse Rate 81 Respiratory 18 Rate Blood Pressure 131/65 O2 Sat by Pulse 100 Oximetry - Reevaluation(s) Reevaluation #1: 04/25/21 12:37 Normal sinus rhythm with a rate of 75. MA 152. QRS 136. QT 410. QTc 457. Right axis. Right bundle-branch block. Nonspecific T waves. EKG Findings - EKG Comments: EKG Findings:: Normal sinus rhythm with rate of 77. MA 158. QRS 142. QT 412. QTC 466. Right axis. Rate bundle-branch block. No acute ST change. Medical Decision Making - Medical Decision Making Patient reevaluated and still having discomfort. Patient and family updated on results and plan. Case was discussed with Dr. Escalante, who will admit covering for Dr. Caisllas, who admits for Dr. Olivia. - Lab Data Result diagrams: 04/25/21 12:17 04/25/21 12:17 Lab Results 04/25/21 04/25/21 04/25/21 Range/Units 12:17 12:17 12:17 WBC 7.5 (3.8-10.6) k/uL RBC 4.30 (3.80-5.40) m/uL Hgb 13.5 (11.4-16.0) gm/dL Hct 39.2 (34.0-46.0) % MCV 91.1 (80.0-100.0) fL MCH 31.5 (25.0-35.0) pg MCHC 34.6 (31.0-37.0) g/dL RDW 13.3 (11.5-15.5) % Plt Count 242 (150-450) k/uL MPV 8.5 Neutrophils % 56 % Lymphocytes % 34 % Monocytes % 5 % Eosinophils % 2 % Basophils % 1 % Neutrophils # 4.2 (1.3-7.7) k/uL Lymphocytes # 2.6 (1.0-4.8) k/uL Monocytes # 0.4 (0-1.0) k/uL Eosinophils # 0.2 (0-0.7) k/uL Basophils # 0.0 (0-0.2) k/uL PT 9.8 (9.0-12.0) sec INR 0.9 (<1.2) APTT 21.9 L (22.0-30.0) sec D-Dimer 0.29 (<0.60) mg/L FEU Sodium 138 (137-145) mmol/L Potassium 4.5 (3.5-5.1) mmol/L Chloride 105 (98-107) mmol/L Carbon Dioxide 21 L (22-30) mmol/L Anion Gap 12 mmol/L BUN 12 (7-17) mg/dL Creatinine 0.57 (0.52-1.04) mg/dL Est GFR (CKD-EPI)AfAm >90 (>60 ml/min/1.73 sqM) Est GFR (CKD-EPI)NonAf >90 (>60 ml/min/1.73 sqM) Glucose 149 H (74-99) mg/dL Calcium 9.8 (8.4-10.2) mg/dL Magnesium 1.7 (1.6-2.3) mg/dL Total Bilirubin 0.2 (0.2-1.3) mg/dL AST 20 (14-36) U/L ALT 19 (4-34) U/L Alkaline Phosphatase 65 (38-126) U/L Troponin I (0.000-0.034) ng/mL Total Protein 6.5 (6.3-8.2) g/dL Albumin 4.2 (3.5-5.0) g/dL 04/25/21 Range/Units 12:17 WBC (3.8-10.6) k/uL RBC (3.80-5.40) m/uL Hgb (11.4-16.0) gm/dL Hct (34.0-46.0) % MCV (80.0-100.0) fL MCH (25.0-35.0) pg MCHC (31.0-37.0) g/dL RDW (11.5-15.5) % Plt Count (150-450) k/uL MPV Neutrophils % % Lymphocytes % % Monocytes % % Eosinophils % % Basophils % % Neutrophils # (1.3-7.7) k/uL Lymphocytes # (1.0-4.8) k/uL Monocytes # (0-1.0) k/uL Eosinophils # (0-0.7) k/uL Basophils # (0-0.2) k/uL PT (9.0-12.0) sec INR (<1.2) APTT (22.0-30.0) sec D-Dimer (<0.60) mg/L FEU Sodium (137-145) mmol/L Potassium (3.5-5.1) mmol/L Chloride (98-107) mmol/L Carbon Dioxide (22-30) mmol/L Anion Gap mmol/L BUN (7-17) mg/dL Creatinine (0.52-1.04) mg/dL Est GFR (CKD-EPI)AfAm (>60 ml/min/1.73 sqM) Est GFR (CKD-EPI)NonAf (>60 ml/min/1.73 sqM) Glucose (74-99) mg/dL Calcium (8.4-10.2) mg/dL Magnesium (1.6-2.3) mg/dL Total Bilirubin (0.2-1.3) mg/dL AST (14-36) U/L ALT (4-34) U/L Alkaline Phosphatase (38-126) U/L Troponin I <0.012 (0.000-0.034) ng/mL Total Protein (6.3-8.2) g/dL Albumin (3.5-5.0) g/dL - Radiology Data Radiology results: image reviewed (Chest x-ray shows no definite acute process. Suspected artifact right upper lobe) Disposition Clinical Impression: Chest pain Disposition: ADMITTED IP TO THIS [facility] Is patient prescribed a controlled substance at d/c from ED?: No Referrals: Danelle Olivia DO [Primary Care Provider] - 1-2 days Decision Time: 13:18
[2021-04-25 12:29] LABS: Basophils % (A) 1 %; Eosinophils # (A) 0.2 k/uL (0-0.7); Eosinophils % (A) 2 %; HCT 39.2 % (34.0-46.0); HGB 13.5 gm/dL (11.4-16.0); Lymphocytes # (A) 2.6 k/uL (1.0-4.8); Lymphocytes % (A) 34 %; MCH 31.5 pg (25.0-35.0); MCHC 34.6 g/dL (31.0-37.0); MCV 91.1 fL (80.0-100.0); Mean Platelet Volume 8.5; Monocytes # (A) 0.4 k/uL (0-1.0); Monocytes % (A) 5 %; Neutrophils # (A) 4.2 k/uL (1.3-7.7); Neutrophils % (A) 56 %; Platelet Count 242 k/uL (150-450); RDW 13.3 % (11.5-15.5); WBC 7.5 k/uL (3.8-10.6)
[2021-04-25 12:38] LABS: Potassium 4.5 mmol/L (3.5-5.1)
--- NOTE | 2021-04-25 12:38 | XR ---
EXAMINATION TYPE: XR chest 2V DATE OF EXAM: 04/25/2021 COMPARISON: 11/16/2016 INDICATION: Yes pain TECHNIQUE: Frontal and lateral views of the chest are obtained. FINDINGS: The heart size is normal. The pulmonary vasculature is normal. There is increased density at the right apex adjacent to the right first rib. This appears to be rashad fact. Underlying nodule or infiltrate is not excluded. Follow-up is recommended. IMPRESSION: 1. No acute pulmonary process. 2. Suspected artifact right upper lobe supraclavicular region. Underlying lung nodule or infiltrate h owever should be considered and follow-up is recommended.
[2021-04-25 12:39] LABS: ALT 19 U/L (4-34); AST 20 U/L (14-36); African American GFR (CKD) >90 (>60 ml/min/1.73 sqM); Albumin 4.2 g/dL (3.5-5.0); Alkaline Phosphatase 65 U/L (38-126); Anion Gap 12 mmol/L; Blood Urea Nitrogen 12 mg/dL (7-17); Calcium 9.8 mg/dL (8.4-10.2); Carbon Dioxide 21 mmol/L (22-30); Chloride 105 mmol/L (98-107); Glucose 149 mg/dL (74-99); Magnesium 1.7 mg/dL (1.6-2.3); Non-African American GFR(CKD) >90 (>60 ml/min/1.73 sqM); Sodium 138 mmol/L (137-145); Total Bilirubin 0.2 mg/dL (0.2-1.3); Total Protein 6.5 g/dL (6.3-8.2)
[2021-04-25 13:09] LABS: D-Dimer 0.29 mg/L FEU (<0.60); INR 0.9 (<1.2); Partial Thromboplastin Time 21.9 sec (22.0-30.0); Prothrombin Time 9.8 sec (9.0-12.0)
[2021-04-25] MEDS ORDERED: NITROGLYCERIN SL TABS 0.4 MG TAB SUBLINGUAL PRN (13:19)
[2021-04-25] MEDS ORDERED: HYDROmorphone 0.5 MG/0.5 ML SYRINGE IVP STA (13:20)
[2021-04-25] MEDS ORDERED: HYDROcodone/APAP 10-325MG 1 EACH TAB PO PRN (14:31)
[2021-04-25] MEDS: ASPIRIN 325 MG TAB PO PRN (16:01)
[2021-04-25] MEDS ORDERED: ALPRAZolam 0.25 MG TAB PO PRN (16:16)
--- NOTE | 2021-04-25 17:01 | CT ---
EXAMINATION TYPE: CT angio chest DATE OF EXAM: 04/25/2021 COMPARISON: None HISTORY: Chest pain and SOB CT DLP: 317.1 mGycm Automated exposure control for dose reduction was used. CONTRAST: Performed with IV Contrast, patient injected with 100 mL of Isovue 370. Images obtained from the thoracic inlet to the diaphragm with IV contrast. There are 3-D post process ed images. The lungs are clear of consolidation. There is some patchy atelectasis in the lung bases and more on the right side. There is no pleural effusion. There is no pericardial effusion. Heart size is fairly normal. There are no hilar masses. There is no mediastinal adenopathy. Thoracic aorta is intact. There is no aneurysm or dissection. There is normal contrast opacification of the pulmonary arteries. There are no filling defects. Thoracic vertebra show normal alignment. There is no compression fracture. Sternum is intact. The upper abdominal soft tissues are intact. There are clips from cholecystectomy. IMPRESSION: No evidence of pulmonary embolism. Patchy atelectasis at the lung bases.
[2021-04-25] MEDS: HYDROcodone/APAP 5-325MG 1 EACH TAB PO PRN (17:07)
[2021-04-25] MEDS: metFORMIN 500 MG TAB PO SCH (17:15)
[2021-04-25 17:28] LABS: Glucose,Whole Blood 155 mg/dL (75-99)
[2021-04-25] MEDS: INSULIN ASPART (NovoLOG) 100 UNIT/ML VIAL SQ SCH ×2 (17:32→21:05)
[2021-04-25] MEDS: HYDROmorphone 0.5 MG/0.5 ML SYRINGE IVP PRN ×2 (17:47→21:06)
[2021-04-25] MEDS: NITROGLYCERIN OINT 1 INCH/GM PACKET TOPICAL SCH (17:49)
[2021-04-25 17:53] LABS: Appearance,Urine Clear (Clear); Bilirubin,Urine Negative (Negative); Blood,Urine Negative (Negative); Color,Urine Light Yellow; Glucose,Urine (UA) Trace (Negative); Ketones,Urine Negative (Negative); Leukocyte Esterase,Urine Trace (Negative); Nitrite,Urine Negative (Negative); Protein,Urine Negative (Negative); RBC,Urine <1 /hpf (0-5); Specific Gravity,Urine 1.015 (1.001-1.035); Urobilinogen,Urine <2.0 mg/dL (<2.0); WBC,Urine 2 /hpf (0-5)
--- NOTE | 2021-04-25 18:00 | HP ---
HISTORY AND PHYSICAL DATE OF SERVICE: 04/25/2021. I am covering for Dr. Young. CHIEF COMPLAINT: Chest pain. HISTORY OF PRESENT ILLNESS: This 55-year-old woman with a past medical history of multiple medical problems including GERD, hypertension, history of musculoskeletal disorder, history of herniated disk, history of cholecystectomy, history of cardiac catheterization, being followed by Dr. Young in the outpatient setting previously had cardiac catheterization in [address] Ana Rosa Sesay which showed a small diagonal 1 mm with about 60% stenosis coming off LAD. LV systolic function was found to be excellent. Currently the patient is complaining of chest pain which started as sharp pain in the left side of the chest which is turning to deep pressure type of pain. The pain is not relieved with multiple medications and is moderate in intensity. The left arm also feels numb according to her. There is no history of radiation of the pain elsewhere. No associated sweating or palpitation, but the pain is slightly getting worse along with respirations according to her. There is no history of fever or rigors. D-dimer is negative. PAST MEDICAL HISTORY: History of chest pain, GERD, hypertension, hypertension, previous cardiac cath as mentioned in 2015. HOME MEDICATIONS: Glucophage, Zestril. [place], vitamin D2, Ecotrin, Elavil. ALLERGIES: Codeine, morphine, penicillin V. FAMILY HISTORY: History of CAD, CABG and stents. The patient's dad had CABG in late 50s or early 60s. Brother had stent in the early 50s and another brother had cardiac catheterization apparently. SOCIAL HISTORY: History of smoking, continued ongoing smoking. Now smokes less than half pack cigarettes per day according to her. REVIEW OF SYSTEMS: ENT: No diminished vision. CARDIOVASCULAR SYSTEM: As mentioned earlier. GI: No nausea. : As mentioned earlier. NERVOUS SYSTEM: No numbness, weakness. ALLERGY: No asthma or hayfever. MUSCULOSKELETAL: As mentioned earlier. HEMATOLOGY/ONCOLOGY: No history of diabetes or hypothyroidism. CONSTITUTIONAL: As mentioned earlier. DERMATOLOGY: Negative. RHEUMATOLOGY: Negative. PSYCHIATRY: As mentioned. PHYSICAL EXAMINATION: Alert, oriented x3. Pulse 100, blood pressure is 108/60, respirations 18, temperature 97.4, pulse ox 98% on 2 L. HEENT: Normocephalic. CARDIAC: S1 and S2 muffled. LUNGS: Breath sounds diminished at the bases. No rhonchi no crackles. ABDOMEN: Soft, nontender. No mass. EXTREMITIES: No swelling. NERVOUS SYSTEM: Higher functions as mentioned. Moves all extremities well. LYMPH: No lymph nodes palpable in the neck, axillae or groin. SKIN: No rash. JOINTS: No active deforming arthropathy. LABS: CBC within normal limits. Sodium 130, potassium 4.5. EKG personally reviewed include right bundle branch block with ST-T changes. Chest CTA is pending at this time. Chest x-ray showed suspected artifact in the right upper lobe. ASSESSMENT: 1. Chest pain possible unstable angina. 2. Suspect artifact in the right upper lobe on the chest x-ray. 3. GERD. 4. Hypertension. 5. Hyperlipidemia. 6. History of AICD. 7. History of previous cardiac catheterization and moderate coronary artery disease, about 60% of the small diagonal. 8. History of herniated disk. 9. History of sinusitis. 10.History of fungal ball removal from the sinus. 11.History of migraines. 12.History of cholecystectomy. 13.History of nicotine dependence. 14.FULL CODE. RECOMMENDATIONS AND DISCUSSION: In this 55-year-old woman who presented with multiple medical issues, at this time we will monitor the patient closely. Rule out myocardial infarction. Cardiology consultation and symptomatic treatment. I would also recommend a CT of the chest because of the abnormal chest x-ray and the patient's presentation. Symptomatic treatment will be provided. See orders for further details. Prognosis guarded. Further plans to follow. MMODL / IJN: [id number] /
[2021-04-25 19:54] LABS: Glucose,Whole Blood 149 mg/dL (75-99)
[2021-04-25] MEDS: HEPARIN SODIUM,PORCINE/PF 5,000 UNIT/0.5 ML SYRINGE SQ SCH (21:05)
[2021-04-25] MEDS: AMITRIPTYLINE HCL 50 MG TAB PO SCH (21:05)
[2021-04-26] MEDS: NITROGLYCERIN OINT 1 INCH/GM PACKET TOPICAL SCH ×5 (00:17→23:40)
[2021-04-26] MEDS: HYDROmorphone 0.5 MG/0.5 ML SYRINGE IVP PRN ×8 (01:09→23:40)
[2021-04-26] MEDS: ASPIRIN 325 MG TAB PO PRN (04:55)
[2021-04-26 07:30] LABS: Glucose,Whole Blood 143 mg/dL (75-99)
--- NOTE | 2021-04-26 07:30 | P.CRDCN ---
History of Present Illness Consult date: 04/26/21 Chief complaint: Chest pain History of present illness: This is a very pleasant 55-year-old female patient with diabetes and hypertension and significant history of smoking and known coronary artery disease based on heart catheterization was performed in 2014 showing intermediate lesion involving the diagonal branch of the LAD presented to the hospital complaining of chest discomfort. For the last several days she has been experiencing chest discomfort in the middle of the chest described as a burning sensation with some radiation to the back. No associated shortness of breath or dizziness or lightheadedness or any feeling of heart racing or fluttering or presyncope or syncope. The EKG showed sinus rhythm with R PBB. The cardiac enzymes were checked and came in to be unremarkable. Currently the patient is chest pain-free which she stated that her chest discomfort was not clearly exertion related. Unfortunately she continues to smoke. Beside the EKG and cardiac enzymes she underwent a computed tomography scan which showed no evidence of acute abnormalities. The rest of her blood work overall came in to be unremarkable. Past Medical History Past Medical History: Chest Pain / Angina, GERD/Reflux, Hyperlipidemia, Hypertension, Musculoskeletal Disorder, Osteoarthritis (OA) Additional Past Medical History / Comment(s): HERNIATED DISCS, ARTHRITIS WITH BACK PAIN., HOSPITALIZED 11/18/16-11/21/16 AT [facility] FOR CHEST PAIN & HEADACHE WITH PAIN PROCEDURE DONE.Dr Pool removed "Fungal ball" and had complications and went to [facility]- diagnosed with migraine headaches History of Any Multi-Drug Resistant Organisms: None Reported Past Surgical History: Cholecystectomy, Heart Catheterization, Hysterectomy, Tonsillectomy Additional Past Surgical History / Comment(s): CYST REMOVED FROM ABD DURING HYSTERECTOMY SX, sinus surgery 04/07. Late 2015 or early 2016 had heart cath by Dr Sesay- was told has some blockages- no stents done Past Anesthesia/Blood Transfusion Reactions: No Reported Reaction Past Psychological History: No Psychological Hx Reported Smoking Status: Current every day smoker Past Alcohol Use History: None Reported Additional Past Alcohol Use History / Comment(s): STARTED SMOKING AT AGE 15, SMOKES less than 1/2 PPD. Past Drug Use History: None Reported - Past Family History Father Family Medical History: Coronary Artery Disease (CAD) Additional Family Medical History / Comment(s): triple bypass, stents Mother Family Medical History: Cancer, Hypertension Additional Family Medical History / Comment(s): HX OF BREAST ,COLON AND LUNG CANCER Brother(s) Additional Family Medical History / Comment(s): heart attacks, stents Medications and Allergies Home Medications Medication Instructions Recorded Confirmed Type lisinopriL [Zestril] 20 mg PO DAILY 04/09/18 04/25/21 History Amitriptyline HCl [Elavil] 150 mg PO HS 04/25/21 04/25/21 History Aspirin EC [Ecotrin] 325 mg PO QID PRN 04/25/21 04/25/21 History Ergocalciferol [Vitamin D2 (1250 1,250 mcg PO MO 04/25/21 04/25/21 History Mcg = 14014 Iu)] HYDROcodone/APAP 10-325MG [[place] 1 tab PO BID PRN 04/25/21 04/25/21 History 10-325] metFORMIN HCL [Glucophage] 1,000 mg PO BID 04/25/21 04/25/21 History Allergies Allergy/AdvReac Type Severity Reaction Status Date / Time codeine Allergy Dyspnea/Hea Verified 04/25/21 12:21 rtburn morphine Allergy Dyspnea/Hea Verified 04/25/21 12:21 rtburn penicillin V Allergy Swelling Verified 04/25/21 12:21 Physical Exam Vitals: Vital Signs Temp Pulse Pulse Resp BP BP BP 04/26/21 01:03 97.6 F 88 18 120/72 04/26/21 00:31 94 04/25/21 20:26 04/25/21 19:58 94 16 04/25/21 18:40 98.3 F 94 16 120/61 04/25/21 15:00 97.4 F L 100 18 108/67 04/25/21 14:48 89 120/69 04/25/21 14:37 75 123/74 04/25/21 14:04 97.5 F L 76 16 127/74 04/25/21 14:00 89 16 04/25/21 11:33 97.4 F L 81 18 131/65 Pulse Ox 04/26/21 01:03 96 04/26/21 00:31 04/25/21 20:26 98 04/25/21 19:58 04/25/21 18:40 97 04/25/21 15:00 98 04/25/21 14:48 04/25/21 14:37 04/25/21 14:04 98 04/25/21 14:00 04/25/21 11:33 100 Intake and Output 04/25/21 04/26/21 04/26/21 22:59 06:59 14:59 Intake Total 350 Balance 350 Intake: Oral 350 Other: Voiding Method Toilet # Voids 2 3 - Constitutional General appearance: no acute distress - Respiratory Respiratory: bilateral: CTA - Cardiovascular Rhythm: regular Heart sounds: normal: S1, S2 Results 04/25/21 12:17 04/25/21 12:17 Cardiac Enzymes 04/25/21 04/25/21 04/25/21 Range/Units 12:17 12:17 16:25 AST 20 (14-36) U/L Troponin I <0.012 <0.012 (0.000-0.034) ng/mL 04/25/21 Range/Units 19:18 AST (14-36) U/L Troponin I <0.012 (0.000-0.034) ng/mL Coagulation 04/25/21 Range/Units 12:17 PT 9.8 (9.0-12.0) sec APTT 21.9 L (22.0-30.0) sec CBC 04/25/21 Range/Units 12:17 WBC 7.5 (3.8-10.6) k/uL RBC 4.30 (3.80-5.40) m/uL Hgb 13.5 (11.4-16.0) gm/dL Hct 39.2 (34.0-46.0) % Plt Count 242 (150-450) k/uL Comprehensive Metabolic Panel 04/25/21 Range/Units 12:17 Sodium 138 (137-145) mmol/L Potassium 4.5 (3.5-5.1) mmol/L Chloride 105 (98-107) mmol/L Carbon Dioxide 21 L (22-30) mmol/L BUN 12 (7-17) mg/dL Creatinine 0.57 (0.52-1.04) mg/dL Glucose 149 H (74-99) mg/dL Calcium 9.8 (8.4-10.2) mg/dL AST 20 (14-36) U/L ALT 19 (4-34) U/L Alkaline Phosphatase 65 (38-126) U/L Total Protein 6.5 (6.3-8.2) g/dL Albumin 4.2 (3.5-5.0) g/dL Current Medications Generic Name Dose Route Start Last Admin Trade Name Freq PRN Reason Stop Dose Admin Hydrocodone Bitart/Acetaminophen 1 each 04/25/21 16:49 04/25/21 17:07 Hydrocodone/Apap 5-325mg 1 Each Tab PO 1 each Q6HR PRN Administration Pain Alprazolam 0.25 mg 04/25/21 16:16 Alprazolam 0.25 Mg Tab PO TID PRN Anxiety Amitriptyline HCl 150 mg 04/25/21 21:00 04/25/21 21:05 Amitriptyline Hcl 50 Mg Tab PO 150 mg HS RAMIRO Administration Aspirin 325 mg 04/26/21 09:00 Aspirin 325 Mg Tab PO DAILY RAMIRO Aspirin 325 mg 04/25/21 14:31 04/26/21 04:55 Aspirin 325 Mg Tab PO 325 mg QID PRN Administration Chest Pain/Headache Ergocalciferol 1,250 mcg 04/27/21 09:00 Ergocalciferol 1,250 Mcg (50,000 Iu) Capsule PO MO [facility] Heparin Sodium (Porcine) 5,000 unit 04/25/21 21:00 04/25/21 21:05 Heparin Sodium,Porcine/Pf 5,000 Unit/0.5 Ml Syringe SQ 5,000 unit Q12HR RAMIRO Administration Hydromorphone HCl 0.5 mg 04/25/21 16:15 04/26/21 04:51 Hydromorphone 0.5 Mg/0.5 Ml Syringe IVP 0.5 mg Q3HR PRN Administration Pain Insulin Aspart 0 unit 04/25/21 17:30 04/25/21 21:05 Insulin Aspart (Novolog) 100 Unit/Ml Vial SQ 1 unit ACHS RAMIRO Administration Protocol Lisinopril 20 mg 04/26/21 09:00 Lisinopril 20 Mg Tab PO DAILY RAMIRO Metformin HCl 1,000 mg 04/25/21 17:30 04/25/21 17:15 Metformin 500 Mg Tab PO 1,000 mg AC-BID RAMIRO Administration Nitroglycerin 0.4 mg 04/25/21 13:19 04/25/21 14:39 Nitroglycerin Sl Tabs 0.4 Mg Tab SUBLINGUAL 0.4 mg Q5M PRN Administration Chest Pain Nitroglycerin 1 inch 04/25/21 18:00 04/26/21 02:53 Nitroglycerin Oint 1 Inch/Gm Packet TOPICAL Not Given Q6HR [facility] Sodium Chloride 10 ml 04/25/21 21:00 04/25/21 21:06 Sodium Chloride 0.9% Flush 10 Ml Syringe IV 10 ml BID RAMIRO Administration Intake and Output 04/25/21 04/26/21 04/26/21 22:59 06:59 14:59 Intake Total 350 Balance 350 Intake: Oral 350 Other: Voiding Method Toilet # Voids 2 3 04/25/21 12:17 04/25/21 12:17 Assessment and Plan Assessment: Assessment #1 atypical chest discomfort #2 known coronary artery disease #3 significant history of smoking #4 multiple risk factors for CAD Plan #1 continue the current medical regimen #2 acute coronary event was ruled out #3 acute aortic event was ruled out as well #4 obtain a stress test to rule out severe CAD
[2021-04-26] MEDS: metFORMIN 500 MG TAB PO SCH ×2 (08:23→18:11)
[2021-04-26] MEDS: HYDROcodone/APAP 5-325MG 1 EACH TAB PO PRN (08:23)
[2021-04-26] MEDS: ASPIRIN 325 MG TAB PO SCH (08:23)
[2021-04-26] MEDS: lisinopriL 20 MG TAB PO SCH (08:23)
[2021-04-26] MEDS: HEPARIN SODIUM,PORCINE/PF 5,000 UNIT/0.5 ML SYRINGE SQ SCH ×2 (08:24→20:30)
[2021-04-26] MEDS: INSULIN ASPART (NovoLOG) 100 UNIT/ML VIAL SQ SCH ×4 (09:11→20:29)
[2021-04-26 09:53] LABS: Basophils # (A) 0.04 X 10*3/uL (0.00-0.10); Basophils % (A) 0.5 %; Eosinophils # (A) 0.15 X 10*3/uL (0.04-0.35); HCT 38.2 % (37.2-46.3); HGB 12.4 g/dL (12.0-15.0); Lymphocytes # (A) 2.69 X 10*3/uL (0.90-5.00); Lymphocytes % (A) 35.4 %; MCHC 32.5 g/dL (32.0-37.0); MCV 95.5 fL (80.0-97.0); Mean Platelet Volume 11.1 fL (9.5-12.2); Monocytes # (A) 0.49 X 10*3/uL (0.20-1.00); Monocytes % (A) 6.5 %; Neutrophils # (A) 4.19 X 10*3/uL (1.80-7.70); Neutrophils % (A) 55.2 %; Platelet Count 238 X 10*3/uL (140-440); RDW 13.4 % (11.5-14.5); WBC 7.59 X 10*3/uL (4.50-10.00)
[2021-04-26 09:57] LABS: African American GFR (CKD) 112.3 (60.0-200.0); Anion Gap 7.5 mmol/L (4.00-12.00); Carbon Dioxide 27.5 mmol/L (21.6-31.8); Chol/HDL Ratio 4.88; LDL Cholesterol,Calculated 80.2 mg/dL (0.0-131.0); Non-African American GFR(CKD) 96.9 (60.0-200.0); Potassium 4.5 mmol/L (3.5-5.5); VLDL Calculation 78.8 mg/dL (5.00-40.00)
[2021-04-26 12:05] LABS: Glucose,Whole Blood 109 mg/dL (75-99)
[2021-04-26 17:13] LABS: Glucose,Whole Blood 149 mg/dL (75-99)
[2021-04-26 19:53] VITALS: PULSE 89
[2021-04-26 20:24] LABS: Glucose,Whole Blood 198 mg/dL (75-99)
[2021-04-26] MEDS: AMITRIPTYLINE HCL 50 MG TAB PO SCH (20:29)
--- NOTE | 2021-04-26 22:40 | PN ---
PROGRESS NOTE Covering for Dr. Young. DATE OF SERVICE: 04/26/2021 This 55-year-old woman is admitted with chest pain with possible unstable angina, being closely monitored at this time. Cardiology has seen the patient and recommended a stress test at this time. A chest CTA was also performed, which showed no evidence of pulmonary embolism, patchy atelectasis in the lung bases. No fever. No cough. PHYSICAL EXAMINATION: Alert and oriented x3 the pulse is 89. Blood pressure 120/69, respiration 18, temperature 97.8, pulse ox 98% on room air. HEENT: Normal conjunctivae. NECK: No JVD. CARDIOVASCULAR: S1, S2 muffled. RESPIRATION: Breath sounds diminished at the bases. No rhonchi. No crackles. ABDOMEN: Soft, nontender. LEGS: No swelling. No edema. NERVOUS SYSTEM: Higher functions as mentioned earlier. Moves all 4 limbs. No focal motor or sensory deficits. SKIN: No ulcer. JOINTS: No active deforming arthropathy. LABS: CAT scan of the chest, personally reviewed. The labs are noted. ASSESSMENT: 1. Chest pain, possible unstable angina. 2. Bibasilar atelectasis in the in the CT scan. 3. Gastroesophageal reflux disease. 4. Hypertension. 5. Hyperlipidemia. 6. History AICD. 7. History of previous cardiac catheterization. Moderate coronary disease, about 60% small diagonal. 8. History of herniated disk. 9. History of sinusitis. 10.History of fungal ball removed in the sinus. 11.History of migraines. 12.History of cholecystectomy. 13.History of nicotine dependence. 14.FULL CODE. RECOMMENDATION AND DISCUSSION: Continue current management and ( ) per Cardiology. Prognosis guarded. Closely follow. Dr. Young will follow in the morning. MMODL / IJN: [id number] /
[2021-04-27] MEDS: HYDROmorphone 0.5 MG/0.5 ML SYRINGE IVP PRN ×3 (03:18→13:04)
[2021-04-27] MEDS: NITROGLYCERIN OINT 1 INCH/GM PACKET TOPICAL SCH (05:57)
[2021-04-27 07:09] LABS: Glucose,Whole Blood 152 mg/dL (75-99)
[2021-04-27] MEDS: HEPARIN SODIUM,PORCINE/PF 5,000 UNIT/0.5 ML SYRINGE SQ SCH (07:47)
[2021-04-27] MEDS: ASPIRIN 325 MG TAB PO SCH (07:48)
[2021-04-27] MEDS: lisinopriL 20 MG TAB PO SCH (07:48)
[2021-04-27] MEDS: metFORMIN 500 MG TAB PO SCH (07:48)
[2021-04-27] MEDS: HYDROcodone/APAP 5-325MG 1 EACH TAB PO PRN (07:48)
[2021-04-27 07:52] VITALS: BP 122/69; TEMP 97.7
[2021-04-27] MEDS ORDERED: ERGOCALCIFEROL 1,250 MCG (50,000 IU) CAPSULE PO SCH (09:00)
[2021-04-27] MEDS: INSULIN ASPART (NovoLOG) 100 UNIT/ML VIAL SQ SCH ×2 (09:17→13:00)
[2021-04-27 09:23] VITALS: RESP 18
--- NOTE | 2021-04-27 10:54 | P.PN ---
Subjective This is a pleasant 55-year-old female past medical history significant for coronary artery disease, hypertension, dyslipidemia, arthritis, diabetes mellitus and chronic nicotine dependence. She does not follow regularly in the office. She is seen and examined sitting up in a wheelchair awaiting her stress test. She is complaining of ongoing intermittent chest discomfort, some dizziness and nausea. She denies shortness of breath or palpitations. Telemetry tracings have been persistent sinus mechanism with no acute arrhythmia or significant pauses noted. 122/69 heart rate 89 afebrile maintaining oxygen saturation on room air. GENERAL: Well-appearing, well-nourished and in no acute distress. NECK: Supple without JVD or thyromegaly. LUNGS: Breath sounds clear to auscultation bilaterally. Respiration equal and unlabored. No wheezes, rales or rhonchi. HEART: Regular rate and rhythm without murmurs, rubs or gallops. S1 and S2 heard. EXTREMITIES: Normal range of motion, no edema. No clubbing or cyanosis. Peripheral pulses intact. ASSESSMENT Chest pain, atypical Coronary artery disease, 60% stenosis of the diagonal branch 2016 Hypertension Diabetes mellitus Chronic nicotine dependence PLAN Given her history of diabetes mellitus along with known CAD, recommend initiation of atorvastatin 40 mg daily. Proceed with stress test as previously ordered. We will compare the images to her previous study and decide on moving forward with cardiac catheterization if abnormal. Nurse Practitioner note has been reviewed, I agree with a documented findings and plan of care. Patient was seen and examined. Objective - Vital Signs Vital signs: Vital Signs Temp 97.7 F 04/27/21 07:00 Pulse 89 04/27/21 07:00 Resp 18 04/27/21 08:00 BP 122/69 04/27/21 07:00 Pulse Ox 97 04/27/21 07:00 Intake & Output 04/26/21 04/27/21 04/27/21 18:59 06:59 18:59 Intake Total 600 Balance 600 Intake: Oral 600 Other: Voiding Method Toilet Toilet # Voids 1 - Labs CBC & Chem 7: 04/26/21 06:33 04/26/21 06:33 Labs: Abnormal Lab Results - Last 24 Hours (Table) 04/26/21 04/26/21 04/26/21 Range/Units 12:03 17:11 20:22 POC Glucose (mg/dL) 109 H 149 H 198 H (75-99) mg/dL 04/27/21 Range/Units 07:07 POC Glucose (mg/dL) 152 H (75-99) mg/dL
[2021-04-27] MEDS ORDERED: REGADENOSON 0.4 MG/5 ML SYRINGE IV ONE (10:58)
[2021-04-27 12:23] LABS: Glucose,Whole Blood 190 mg/dL (75-99)
--- NOTE | 2021-04-27 13:34 | NM ---
EXAMINATION TYPE: NM stress lexiscan cardiolite DATE OF EXAM: 04/27/2021 COMPARISON: 03/10/2015 HISTORY: Chest pain TECHNIQUE: After the intravenous administration of 9.9 mCi Tc 99m Sestamibi - Cardiolite resting SPE CT images acquired 45 minutes post injection. At peak stress 25.4 mCi Tc 99m Sestamibi - Stress images obtained 45 minutes post injection The patient was stressed with 0.4 mg Lexiscan FINDINGS: No fixed defects are evident No reversible stress defects on Spect images Wall motion is normal Ejection fraction is calculated to be 63 %. IMPRESSION: 1. No stress-induced ischemic changes.
--- NOTE | 2021-04-27 15:52 | P.DS ---
Providers Date of admission: 04/25/21 13:19 Expected date of discharge: 04/27/21 Attending physician: Lobo Young MD Consults: 04/25/21 13:19 Consult Physician Urgent Consulting Provider: Wolf Mims Consult Reason/Comments: cp Do you want consulting provider notified?: Yes Primary care physician: Danelle Olivia [facility] Course: Final Diagnoses: Chest pain CAD, 60% diagonal branch stenosis from prior cath. Diabetes mellitus Gastroesophageal reflux disease Hypertension Hyperlipidemia Diabetes mellitus Chronic nicotine dependence Hospital course: This is a 55-year-old female admitted with fluctuating left chest pain, not reproducible accompanied by tingling of left arm. Evaluated cardiology and scheduled for stress test. Statin added to med. regimen. Significant clinical improvement.Patient will be discharged home, in a stable condition with guarded prognosis, pending stress test results,final DC recommendations and clearance per cardiology.Smoking cessation reinforced. The impression and plan of care has been dictated as directed. : I performed a history and examination of this patient, discussed the same with the dictator. I agree with the dictator's note ,documented as a scribe. Any additional findings or plans will be noted. Patient Condition at Discharge: Stable Plan - Discharge Summary New Discharge Prescriptions: New Atorvastatin [Lipitor] 40 mg PO HS #90 tab Continue lisinopriL [Zestril] 20 mg PO DAILY metFORMIN HCL [Glucophage] 1,000 mg PO BID Aspirin EC [Ecotrin] 325 mg PO QID PRN PRN Reason: Chest Pain/Headache HYDROcodone/APAP 10-325MG [[place] 10-325] 1 tab PO BID PRN PRN Reason: Pain Ergocalciferol [Vitamin D2 (1250 Mcg = 81061 Iu)] 1,250 mcg PO MO Amitriptyline HCl [Elavil] 150 mg PO HS Discharge Medication List lisinopriL [Zestril] 20 mg PO DAILY 04/09/18 [History] Amitriptyline HCl [Elavil] 150 mg PO HS 04/25/21 [History] Aspirin EC [Ecotrin] 325 mg PO QID PRN 04/25/21 [History] Ergocalciferol [Vitamin D2 (1250 Mcg = 90706 Iu)] 1,250 mcg PO MO 04/25/21 [History] HYDROcodone/APAP 10-325MG [[place] 10-325] 1 tab PO BID PRN 04/25/21 [History] metFORMIN HCL [Glucophage] 1,000 mg PO BID 04/25/21 [History] Atorvastatin [Lipitor] 40 mg PO HS #90 tab 04/27/21 [Rx] Follow up Appointment(s)/Referral(s): Lobo Young MD [STAFF PHYSICIAN] - 1 Week Wolf Mims MD [STAFF PHYSICIAN] - 05/15/21 4:30 pm Patient Instructions/Handouts: Chest Pain (GEN), Nuclear Stress Test (GEN) Activity/Diet/Wound Care/Special Instructions: Pending stress test results, Final DC recommendations and clearance from cardiology
[2021-04-27] MEDS ORDERED: ATORVASTATIN 20 MG TAB PO SCH (21:00)
[2021-04-27] MEDS ORDERED: ATORVASTATIN 40 MG TAB PO SCH (21:00)
--- NOTE | 2021-04-28 08:29 | EST ---
EXERCISE STRESS INDICATION: Chest pain. AGE: 55 SEX: F HT: 5'10" WT: 180 lbs PROTOCOL: Lexiscan Cardiolite STAGE: N/A DURATION OF EXERCISE: N/A HEART RATE REST: 87 BLOOD PRESSURE REST: 136/57 MAXIMUM HEART RATE ACHIEVED: 130 MAXIMUM BLOOD PRESSURE: 153/60 85% MPHR: 139 100% MPHR: 164 METS: @@ RESULTS: Baseline EKG shows sinus rhythm with right bundle branch block. The patient was given intravenous Lexiscan as per protocol, did not have chest pain or diagnostic ST-segment depression. CONCLUSIONS: 1. Inconclusive EKG part of the stress test due to baseline EKG abnormalities. 2. Cardiolite portion of the stress test will be reported separately. MMODL / IJN: [id number] /
[2021-04-28] MEDS ORDERED: ASPIRIN 81 MG PO SCH (09:00)
== END 2021-04-27 15:42 | disposition home or self-care (01) ==
LOC: EC 11:32 → 6NMEDSUR 13:19
PROVIDERS: ADMIT Family Medicine; ATTEND Family Medicine
DX: I25.10 Atherosclerotic heart disease of native coronary artery without angina pectoris (principal); E11.9 Type 2 diabetes mellitus without complications; K21.9 Gastro-esophageal reflux disease without esophagitis; I10 Essential (primary) hypertension; E78.5 Hyperlipidemia, unspecified; F17.210 Nicotine dependence, cigarettes, uncomplicated; J98.11 Atelectasis; M54.9 Dorsalgia, unspecified; M19.90 Unspecified osteoarthritis, unspecified site; Z79.899 Other long term (current) drug therapy; Z79.84 Long term (current) use of oral hypoglycemic drugs; Z88.0 Allergy status to penicillin; Z88.5 Allergy status to narcotic agent; Z90.49 Acquired absence of other specified parts of digestive tract; Z86.69 Personal history of other diseases of the nervous system and sense organs; Z90.710 Acquired absence of both cervix and uterus; Z95.810 Presence of automatic (implantable) cardiac defibrillator; Z80.1 Family history of malignant neoplasm of trachea, bronchus and lung; Z82.49 Family history of ischemic heart disease and other diseases of the circulatory system
CPT/HCPCS: 96376 ×3; 96372 ×3; 93005 ×2; 96374; 99285; 36415; 93017; 85379; 80061; 80053; 80048; 83735; 84484; 85025 ×2; 85610; 85730; 81001; 71046; 71275; 78452; G0378 ×3; A9500; J2785; J1170 ×3; Q9967; J1644 ×3

== ENCOUNTER → 2022-04-08 | Day surgery (SDC) | payer BC ==
[2022-04-07 08:42] VITALS: BMI 27.2
[~2022-04-08] MED LIST: LACTATED RINGERS 1,000 ML IV SCH; LIDOCAINE 2% INJ 20 MG/ML (2 ML VIAL) ONE; PROPOFOL 10 MG/ML 20 ML VIAL IV ONE
[2022-04-08 07:49] VITALS: TEMP 96.6
[2022-04-08 08:01] LABS: Glucose,Whole Blood 165 mg/dL (70-110)
--- NOTE | 2022-04-08 08:55 | P.GSHP ---
History of Present Illness H&P Date: 04/08/22 Chief Complaint: Family history of colon cancer, screening colon This a 56-year-old female presents today for colonoscopy. Patient has a strong family history of colon cancer with her mother having colon cancer. It's been 10 years since her last colonoscopy. She states she may have had polyps removed at that time. Past Medical History Past Medical History: Chest Pain / Angina, Diabetes Mellitus, GERD/Reflux, Hyperlipidemia, Hypertension, Musculoskeletal Disorder, Osteoarthritis (OA) Additional Past Medical History / Comment(s): HERNIATED DISCS, ARTHRITIS WITH BACK PAIN.,, diagnosed with migraine headaches History of Any Multi-Drug Resistant Organisms: None Reported Past Surgical History: Cholecystectomy, Heart Catheterization, Hysterectomy, Tonsillectomy Additional Past Surgical History / Comment(s): CYST REMOVED FROM ABD DURING HYSTERECTOMY SX, sinus surgery 04/07. Late 2015 or early 2016 had heart cath by Dr Sesay- was told has some blockages- no stents done,COLONOCOPY Past Anesthesia/Blood Transfusion Reactions: No Reported Reaction Smoking Status: Current every day smoker - Past Family History Father Family Medical History: Coronary Artery Disease (CAD) Additional Family Medical History / Comment(s): triple bypass, stents Mother Family Medical History: Cancer, Hypertension Additional Family Medical History / Comment(s): HX OF BREAST ,COLON AND LUNG CANCER Brother(s) Additional Family Medical History / Comment(s): heart attacks, stents Medications and Allergies Home Medications Medication Instructions Recorded Confirmed Type lisinopriL [Zestril] 20 mg PO DAILY 04/09/18 04/08/22 History Amitriptyline HCl [Elavil] 150 mg PO HS 04/25/21 04/08/22 History metFORMIN HCL [Glucophage] 1,000 mg PO BID 04/25/21 04/08/22 History Atorvastatin [Lipitor] 40 mg PO HS #90 tab 04/27/21 04/08/22 Rx Allergies Allergy/AdvReac Type Severity Reaction Status Date / Time codeine Allergy Dyspnea/Hea Verified 04/08/22 07:42 rtburn morphine Allergy Dyspnea/Hea Verified 04/08/22 07:42 rtburn penicillin V Allergy Swelling Verified 04/08/22 07:42 Surgical - Exam Vital Signs Temp Pulse Resp BP Pulse Ox 96.6 F L 85 18 146/64 100 04/08/22 07:42 04/08/22 07:42 04/08/22 07:42 04/08/22 07:42 04/08/22 07:42 - General well developed, well nourished, no distress - Eyes PERRL - ENT normal pinna - Neck no masses - Respiratory normal expansion - Cardiovascular Rhythm: regular - Abdomen Abdomen: soft, non tender Results - Labs Abnormal Lab Results - Last 24 Hours (Table) 04/08/22 Range/Units 07:57 POC Glucose (mg/dL) 165 H (70-110) mg/dL Assessment and Plan Assessment: Family history colon cancer. We'll form colonoscopy.
--- NOTE | 2022-04-08 09:15 | P.OP ---
Date of Procedure: 04/08/22 Preoperative Diagnosis: Family history of colon cancer History: Polyps Screening colonoscopy Postoperative Diagnosis: Tortuous colon Diverticulosis Procedure(s) Performed: Colonoscopy Anesthesia: MAC Surgeon: Atif Carnes Pathology: none sent Condition: stable Disposition: PACU Description of Procedure: The patient's placed on the endoscopy table in the lateral position. She received IV sedation. Digital rectal exam performed. This revealed no ebonized. Flexible colonoscope was then placed patient anus and passed into the sigmoid colon; very tortuous. The colonoscope could not advance. This point colonoscope was withdrawn. Next the pediatric clot scope was placed patient anus antrum attempted to pass through the colon. Once again at the sigmoid colon there was a very tight stricture/turn which the colonoscope was unable to maneuver. This point the colonoscope was withdrawn. The patient was scheduled for a barium enema.
[2022-04-08 09:30] VITALS: RESP 16
[2022-04-08 09:34] VITALS: BP 128/78; PULSE 78
--- NOTE | 2022-04-08 14:24 | FL ---
EXAMINATION TYPE: FL barium enema w air contrast DATE OF EXAM: 04/08/2022 COMPARISON: CT dated 10/31/2019 HISTORY: Incomplete colonoscopy to sigmoid colon. Family history of colon cancer. TECHNIQUE: A double contrast barium enema study is performed. A total of 3 minutes and 6 seconds of fluoroscopic time was utilized during procedure and 35 images obtained. FINDINGS: Informatics Spec view of the abdomen shows a few air-fluid levels without signs of acute high-grade s mall bowel obstruction. Cholecystectomy clips and left lower quadrant surgical clips. Few right lower quadrant surgical clips are also noted. Bilateral pelvic phleboliths rather than urinary calculi. De generative changes of the lower lumbar spine. Suboptimal distention of the cecum and to a lesser extent ascending colon. Underlying lesion at that location cannot be excluded. No evidence of colonic mass or large polyp, obstructing or constricting lesion throughout the remainder of the colon. No significant diverticular disease is noted. IMPRESSION: Suboptimal distention of the cecum and to a lesser extent the ascending colon. Underlying lesion at that location cannot be excluded. No evidence of colonic mass or large polyp in the remainder of the colon. A small polyp cannot be exc luded by this barium study. Further CT colonography or repeat colonoscopy should be considered. Other findings as described above .
== END | disposition home or self-care (01) ==
LOC: ORWHC2ENDO 07:22
PROVIDERS: ATTEND Surgery
DX: Z12.11 Encounter for screening for malignant neoplasm of colon (principal); K57.30 Diverticulosis of large intestine without perforation or abscess without bleeding; K63.89 Other specified diseases of intestine; Z80.0 Family history of malignant neoplasm of digestive organs; E11.69 Type 2 diabetes mellitus with other specified complication; E78.5 Hyperlipidemia, unspecified; K21.9 Gastro-esophageal reflux disease without esophagitis; I10 Essential (primary) hypertension; M19.90 Unspecified osteoarthritis, unspecified site; Z90.49 Acquired absence of other specified parts of digestive tract; F17.200 Nicotine dependence, unspecified, uncomplicated; G43.909 Migraine, unspecified, not intractable, without status migrainosus; Z82.49 Family history of ischemic heart disease and other diseases of the circulatory system; Z80.3 Family history of malignant neoplasm of breast; Z80.1 Family history of malignant neoplasm of trachea, bronchus and lung; Z79.84 Long term (current) use of oral hypoglycemic drugs; Z79.899 Other long term (current) drug therapy; Z88.5 Allergy status to narcotic agent; Z88.0 Allergy status to penicillin
CPT/HCPCS: 74280; 45378; J2704; J2001

== ENCOUNTER → 2023-04-28 | Outpatient (CLI) | payer BC ==
--- NOTE | 2023-04-28 07:55 | CTL ---
EXAMINATION TYPE: CT Low Dose Lung DATE OF EXAM ORDERED: 04/28/2023 HISTORY: Z87.891 personal hx tobacco use. Current smoker, 40 pack year history. Lung cancer screening CT DLP: 133.[address] CTDI: 4.0 mGy Automated exposure control for dose reduction was used. SCREENING VISIT: First screening visit COMPARISON: None TECHNIQUE: Low dose computed tomography scan was performed through the chest at 1 mm thick sections a nd reconstructed images in multiple planes at 1 mm and [address] DIAGNOSTIC QUALITY: Satisfactory FINDINGS: LUNG NODULES: No clinically significant pulmonary nodules. LUNGS: COPD: Severity: None Fibrosis: Severity: None Lymph nodes: None Other findings: None RIGHT PLEURAL SPACE: Effusion: None Calcification: None Thickening: None Pneumothorax: None LEFT PLEURAL SPACE: Effusion: None Calcification: None Thickening: None Pneumothorax: None HEART: Heart Size: Normal Coronary Calcification: Small Pericardial Effusion: None OTHER FINDINGS: Upper abdomen: None Bony thorax: None Supraclavicular region: None Other: None IMPRESSION: No clinically significant pulmonary nodules. CT LUNG RAD AND CT CHEST RECOMMENDATION: Lung-Rad 1 Negative: Continue annual screening with LDCT in 12 months. S Modifier (other clinically significant findings): None
--- NOTE | 2023-04-28 08:11 | MM ---
Reason for Exam: Screening (asymptomatic). Last mammogram was performed 2 year(s) and 9 month(s) ago. Patient History: Menarche at age 10. First Full-Term at age 20. Left ovary removed at age 33. Right ovary removed at age 33. Hysterectomy at age 33. Postmenopausal. Estrogen for 6 months. Core Biopsy on the Right side. 11/22/2000, Benign Excisional Biopsy on the right side. 09/26/2000, Benign Ultrasound-Guided Core Biopsy on the right side. Maternal cousin had breast cancer, age 30. Maternal aunt had breast cancer, age 50. Mother had breast cancer, age 60. Risk Values: Soumya 5 year model risk: 4.2%. NCI Lifetime model risk: 22.2%. Prior Study Comparison: 01/27/2015 Bilateral Diagnostic Mammogram, [facility]. 07/21/2016 Bilateral Screening Mammogram, [facility]. 07/16/2020 Bilateral Screening Mammogram, [facility]. Tissue Density: The breast tissue is heterogeneously dense. This may lower the sensitivity of mammography. Findings: Analyzed By CAD. There is no suspicious group of microcalcifications or new suspicious mass in either breast. Stable chronic nodularity within the right breast. Benign-appearing calcifications within both breasts. Overall Assessment: Benign, BI-RAD 2 Management: Screening Mammogram of both breasts in 1 year. A clinical breast exam by your physician is recommended on an annual basis and results should be correlated with mammographic findings. Note on Soumya scores and lifetime risk: 1. A Soumya score greater than 3% is considered moderate risk. If this is the case, consider specialist referral to assess eligibility for a risk reducing agent. If overall lifetime risk for the development of breast cancer is 20% or higher, the patient may qualify for future screening with alternating mammogram and breast MRI. Electronically signed and approved by: Chad Kelly D.O.
--- NOTE | 2023-04-28 09:21 | BD ---
EXAMINATION TYPE: Axial Bone Density DATE OF EXAM: 04/28/2023 CLINICAL HISTORY: 57 years old Female. ICD-10 CODE: Z78.0 POST MENOPAUSAL WITHOUT HRT Height: 69" Weight: 183.8lbs FRAX RISK QUESTIONS: Alcohol (3 or more units per day): No Family History (Parent hip fracture): No Glucocorticoids (More than 3mos): Yes, 4-5 years ago, sternoids for one year (Ex: prednisone, prednisolone, methylprednisolone, dexamethasone, and hydrocortisone). History of Fracture in Adulthood: No Secondary Osteoporosis: 1. Type 1 Diabetes: No 2. Hyperthyroidism: No 3. Menopause before 45: Hysterectomy at age 32 4. Malnutrition: No 5. Chronic liver disease: No Rheumatoid Arthritis: No Current Tobacco Use: Yes RISK FACTORS HISTORY OF: Hip Fracture (Right/Left): No Spine Fracture: No History of Wrist Fracture: No Surgery to Spine/Hip(right/left)/Wrist (right/left): No Family History of Osteoporosis: No Active: Yes Diet low in dairy products/other sources of calcium: No Lost more than 2 inches in height since high school: No Frequent falls: No Poor Health: No Hyperparathyroidism: No Adrenal Insufficiency: No MEDICATIONS: Prednisone or other steroids: Not current How Lon year about 5 years ago Thyroid Medications: No Osteoporosis Medications: No Additional Medications: Blood pressure pill, diabetic medication, amatryptaline Additional History: None EXAM MEASUREMENTS: Bone mineral densitometry was performed using the [employer] System. Bone mineral density as measured about the Lumbar spine is: ----- L1-L4(G/cm2): 1.118 T Score Values are as follows: ----- L1: -1.7 ----- L2: -0.5 ----- L3: 0.2 ----- L4: -0.4 ----- L1-L4: -0.5 Z Score Values are as follows: ----- L1: -1.2 ----- L2: 0.0 ----- L3: 0.7 ----- L4: 0.1 ----- L1-L4: 0.0 Bone mineral density has: increased 0.2% since study of: 01/13/2021 Bone mineral density about the R hip (g/cm2): 0.899 Bone mineral density about the L hip (g/cm2): 0.900 T Score values are as follows: -----R Neck: -0.8 -----L Neck: -0.6 -----R Total: -0.9 -----L Total: -0.9 Z Score values are as follows: -----R Neck: 0.0 -----L Neck: 0.2 -----R Total: -0.5 -----L Total: -0.4 Bone mineral density has: increased 0.1% since study of: 01/13/2021 FRAX%s: The graph provided illustrates a 10.3% chance for a major osteoporotic fx and a 0.9% chance f or the hips probability for fx in 10 years time. IMPRESSION: Normal (Values between +1 and -1 indicate normal bone mass). Consider repeating this study in 5 year s or sooner if there is some new clinical indication. NOTE: T-SCORE=SD OF THE YOUNG ADULT MEAN.
== END | disposition home or self-care (01) ==
LOC: RADCTMAIN 06:10
PROVIDERS: ATTEND Family Medicine
DX: Z12.31 Encounter for screening mammogram for malignant neoplasm of breast (principal); Z12.2 Encounter for screening for malignant neoplasm of respiratory organs; F17.210 Nicotine dependence, cigarettes, uncomplicated; M85.89 Other specified disorders of bone density and structure, multiple sites; Z78.0 Asymptomatic menopausal state; Z80.3 Family history of malignant neoplasm of breast
CPT/HCPCS: 71271; 77063; 77067; 77080

== ENCOUNTER 2024-01-25 08:01 | Day surgery (SDC) | payer BC ==
[2024-01-23 16:11] VITALS: BMI 26.5
[2024-01-25] MEDS: LACTATED RINGERS 1,000 ML IV SCH (08:36)
[2024-01-25 08:45] LABS: Glucose,Whole Blood 222 mg/dL (70-110)
[2024-01-25 09:06] VITALS: TEMP 97.9
[2024-01-25] MEDS ORDERED: PROPOFOL 10 MG/ML 20 ML VIAL IV ONE (09:14)
--- NOTE | 2024-01-25 09:31 | P.PCN ---
Date of Procedure: 01/25/24 Procedure(s) Performed: BRIEF HISTORY: Patient is a 58-year-old pleasant White male scheduled for an elective colonoscopy as a part of Change in bowel habits and prior history of colon polyps PROCEDURE PERFORMED: Colonoscopy with cold biopsy . PREOPERATIVE DIAGNOSIS:Change in bowel habits and prior history of colon. IV sedation per Anesthesia. PROCEDURE: After informed consent was obtained, the patient, was brought into the endoscopy unit. IV sedation was administered by Anesthesia under continuous monitoring. Digital rectal examination was normal. Initially the Olympus CF-160 flexible video colonoscope was then inserted in the rectum, gradually advanced into the cecum without any difficulty. Careful examination was performed as the scope was gradually being withdrawn. Ileocecal valve and the appendiceal orifice were visualized and appeared normal. Prep was excellent. Mucosa of the cecum, ascending colon, transverse colon, descending colon, Appeared normal. In the sigmoid colon there was a 3 mm polyp that was removed by cold biopsy. In the proximal rectum there was a 5 limited polyp that was removed by cold biopsy. Scattered left sided diverticulosis seen. Rest of thesigmoid colon, and rectum appeared normal. Retroflexion was performed in the rectum and no lesions were seen. The patient tolerated the procedure well. IMPRESSION: 3 mm sigmoid: Polyp status post-cold biopsy 4 mm proximal rectal polypStatus post the biopsy Scattered diverticulosis RECOMMENDATIONS: Findings of this examination were discussed with the patient as well as a family..She was advised to follow with the biopsy result. If the biopsy results adenoma she can have a repeat colonoscopy
[2024-01-25 09:54] LABS: Glucose,Whole Blood 189 mg/dL (70-110)
[2024-01-25 10:33] VITALS: BP 134/58; PULSE 72; RESP 20
== END 2024-01-25 10:01 | disposition home or self-care (01) ==
LOC: ORWHC2ENDO 08:01
PROVIDERS: ATTEND Internal Medicine Gastroenterology
DX: K63.5 Polyp of colon (principal); I10 Essential (primary) hypertension; E78.5 Hyperlipidemia, unspecified; F17.210 Nicotine dependence, cigarettes, uncomplicated; E11.9 Type 2 diabetes mellitus without complications; M19.90 Unspecified osteoarthritis, unspecified site; Z88.5 Allergy status to narcotic agent; Z79.899 Other long term (current) drug therapy; Z88.0 Allergy status to penicillin; Z86.010 Personal history of colon polyps
CPT/HCPCS: 88305; 45380; J2704

== ENCOUNTER → 2024-03-20 | Day surgery (SDC) | payer BC ==
[2024-03-16 13:23] VITALS: BMI 25.7
[~2024-03-20] MED LIST changes: -LACTATED RINGERS 1,000 ML IV SCH; +LIDOCAINE 1% INJ 10MG/ML (20 ML MDV) ONE; -LIDOCAINE 2% INJ 20 MG/ML (2 ML VIAL) ONE
[2024-03-20 09:07] VITALS: TEMP 97.7
[2024-03-20] MEDS: IV FLUID CONTINUATION 1,000 ML IV ONE (09:07)
[2024-03-20] MEDS: LACTATED RINGERS 1,000 ML IV SCH (09:09)
[2024-03-20 09:19] LABS: Glucose,Whole Blood 175 mg/dL (70-110)
--- NOTE | 2024-03-20 09:42 | P.PCN ---
Date of Procedure: 03/20/24 Procedure(s) Performed: BRIEF HISTORY: Patient is a 58-year-old, pleasant, white female scheduled for an upper endoscopy as a part evaluation of intermittent episodes of epigastric pain associate with nausea vomiting and heartburn for last 4 months duration. She believes the symptoms of started after she was started on Rybelsus for diabetes mellitus. PROCEDURE PERFORMED: Esophagogastroduodenoscopy with biopsy. PREOPERATIVE DIAGNOSIS: Epigastric pain associate with nausea vomiting and altered bowel movements. IV sedation per anesthesia. PROCEDURE: After informed consent was obtained, the patient was brought into the endoscopy unit. IV sedation was administered by Anesthesia under continuous monitoring. Initially the Olympus GIF-140 video endoscope was inserted into the mouth. Esophagus intubated without any difficulty. It was gradually advanced into the stomach and duodenum and carefully examined. The bulb and the second part of the duodenum appeared normal. Biopsies were done from the duodenum to evaluate for celiac disease the scope at this time was withdrawn to the stomach, adequately insufflated with air, and upon careful examination, mucosa of the antrum, had mild gastritis and biopsies were done from this area. Mucosa of the body, cardia and the fundus appeared normal. The scope was then withdrawn into the esophagus. Small hiatal hernia noted. The GE junction was located at 39 cm from the incisors. The esophagus appeared normal. There were no erosions or ulcerations seen biopsies were done from the distal esophagus and the patient tolerated the procedure well. IMPRESSION: 1. Mild antral gastritis. 2. Small hiatal hernia. RECOMMENDATIONS: The findings of this examination were discussed with the patient as well as her family. She was advised to follow-up with the biopsy results. Symptoms are likely related to side effects from Rybelsus that was started 4 months ago. Recommended that she discuss with her PCP regarding decreasing the dose of the medication or switching to another medication for her diabetes..
[2024-03-20 09:53] VITALS: RESP 14
[2024-03-20 10:07] VITALS: BP 103/49; PULSE 76
== END ==
LOC: ORWHC2ENDO 08:41
PROVIDERS: ATTEND Internal Medicine Gastroenterology
DX: K31.9 Disease of stomach and duodenum, unspecified (principal); K44.9 Diaphragmatic hernia without obstruction or gangrene; I10 Essential (primary) hypertension; E78.5 Hyperlipidemia, unspecified; E11.9 Type 2 diabetes mellitus without complications; M19.90 Unspecified osteoarthritis, unspecified site; G43.909 Migraine, unspecified, not intractable, without status migrainosus; K21.9 Gastro-esophageal reflux disease without esophagitis; F17.210 Nicotine dependence, cigarettes, uncomplicated; Z88.5 Allergy status to narcotic agent; Z88.0 Allergy status to penicillin; Z79.899 Other long term (current) drug therapy; Z79.84 Long term (current) use of oral hypoglycemic drugs
CPT/HCPCS: 88305; 43239; J2001; J2704

== ENCOUNTER → 2024-07-02 | Outpatient (CLI) | payer BC ==
--- NOTE | 2024-07-02 20:51 | CTL ---
EXAMINATION TYPE: CT Low Dose Lung DATE OF EXAM ORDERED: 07/02/2024 History: Lung cancer screening CT DLP: 93.[address] CTDI: 2.4 mGy Automated exposure control for dose reduction was used. Comparison: 04/28/2023 TECHNIQUE: Low dose computed tomography scan was performed through the chest at 1 mm thick sections a nd reconstructed images in multiple planes at 1 mm and [address] DIAGNOSTIC QUALITY: Satisfactory FINDINGS: There is no suspicious lung mass or nodule The lungs are clear and there is no abnormal consolidation or interstitial density. There is no mediastinal, hilar or axillary adenopathy. There is no pleural effusion, pleural thickening or pneumothorax. No focal osseous lesions are seen. Limited scans the upper abdomen reveals no gross adenopathy. IMPRESSION: 1. BI-RADS Category 1 negative. Continue routine screening at yearly intervals. 2. No acute cardiopulmonary disease. [facility], , 07/02/2024 8:49 PM
--- NOTE | 2024-07-09 08:17 | MM ---
Reason for Exam: Screening (asymptomatic). Last mammogram was performed 1 year(s) and 2 month(s) ago. Patient History: Menarche at age 10. First Full-Term at age 20. Left ovary removed at age 33. Right ovary removed at age 33. Hysterectomy at age 33. Postmenopausal. Estrogen for 6 months. Core Biopsy on the Right side. 11/22/2000, Benign Excisional Biopsy on the right side. 09/26/2000, Benign Ultrasound-Guided Core Biopsy on the right side. Maternal cousin had breast cancer, age 30. Maternal aunt had breast cancer, age 50. Mother had breast cancer, age 60. Risk Values: Soumya 5 year model risk: 4.4%. NCI Lifetime model risk: 21.8%. Prior Study Comparison: 07/21/2016 Bilateral Screening Mammogram, [facility]. 07/16/2020 Bilateral Screening Mammogram, [facility]. 04/28/2023 Bilateral MG 3D screening mammo w/cad, [facility]. Tissue Density: The breasts are almost entirely fatty. Findings: Analyzed By CAD. Right breast: There is no suspicious group of microcalcifications or new suspicious mass. Benign-appearing calcifications right breast. Left breast: There is no suspicious group of microcalcifications or new suspicious mass. Benign-appearing calcifications left breast. Overall Assessment: Benign, BI-RAD 2 Management: Screening Mammogram of both breasts in [address] [facility] will attempt to contact patient to return for supplemental views and ultrasound if indicated. Patient should continue monthly self-breast exams. A clinical breast exam by your physician is recommended on an annual basis. This exam should not preclude additional follow-up of suspicious palpable abnormalities. Note on Soumya scores and lifetime risk: 1. A Soumya score greater than 3% is considered moderate risk. If this is the case, consider specialist referral to assess eligibility for a risk reducing agent. 2. If overall lifetime risk for the development of breast cancer is 20% or higher, the patient may qualify for future screening with alternating mammogram and breast MRI. [facility], , 07/09/2024 8:13 AM. Electronically signed and approved by: Edgardo Gonzalez DO
== END | disposition home or self-care (01) ==
LOC: RADMAMWWP 15:46
PROVIDERS: ATTEND Family Medicine
DX: Z12.31 Encounter for screening mammogram for malignant neoplasm of breast (principal); Z12.2 Encounter for screening for malignant neoplasm of respiratory organs; Z78.0 Asymptomatic menopausal state; Z80.3 Family history of malignant neoplasm of breast; Z90.722 Acquired absence of ovaries, bilateral; Z87.891 Personal history of nicotine dependence
CPT/HCPCS: 71271; 77063; 77067

== ENCOUNTER 2025-01-01 19:59 | Observation (INO) | payer BC ==
--- NOTE | 2025-01-01 20:12 | ED ---
Chest Pain HPI - General Chief Complaint: Chest Pain Stated Complaint: Chest Pain Time Seen by Provider: 01/01/25 20:11 Source: patient, EMS, RN notes reviewed, old records reviewed Limitations: no limitations - History of Present Illness Initial Comments: This is a 59 female to ER for evaluation of chest pain today patient has had chest pain for 2 hours and also admits to a syncopal event prior to arrival patient does have strong history of heart disease strong family history as well as herself history of high blood pressure high cholesterol diabetes history of smoking, 5 for 5 1 respecters, patient does have history of heart catheterization which did show plaques no stents placed. Patient comes in today for chest pain with a syncopal event, patient was walking to the bedroom to watch TV when she hit the ground woke up with EMS drivers around her and comes to the ER under EMS, persistent chest pain throughout transport and here in the ER MD Complaint: chest pain, other (Syncope) -: hour(s) (2) Pain Radiation: none Severity: moderate Severity scale (1-10): 4 Consistency: constant Improves With: nothing Worsens With: nothing Anginal Symptoms: dyspnea, sense of impending doom Other Symptoms: palpitations Treatments Prior to Arrival: none - Related Data Home Medications Medication Instructions Recorded Confirmed Dapagliflozin Propanediol [Farxiga] 10 mg PO DAILY 01/02/25 01/02/25 HYDROcodone/APAP 10-325MG [Nageezi 1 tab PO BID 01/02/25 01/02/25 10-325] lisinopriL [Zestril] 20 mg PO DAILY 01/02/25 01/02/25 Previous Rx's Medication Instructions Recorded Acetaminophen Tab [Tylenol] 650 mg PO Q6HR PRN tab 01/03/25 Ondansetron Odt [Zofran Odt] 4 mg PO Q8HR PRN #20 tab 01/03/25 Allergies Allergy/AdvReac Type Severity Reaction Status Date / Time codeine Allergy Dyspnea/Hea Verified 01/02/25 08:07 rtburn morphine Allergy Dyspnea/Hea Verified 01/02/25 08:07 rtburn penicillin V Allergy lip Verified 01/02/25 08:07 swelling Review of Systems ROS Statement: Those systems with pertinent positive or pertinent negative responses have been documented in the HPI. ROS Other: All systems not noted in ROS Statement are negative. EKG Findings - EKG Comments: EKG Findings:: EKG is sinus 73 VT 158 QRS 126 QTc 430 - EKG Results: EKG: interpreted by BECKY Past Medical History Past Medical History: Chest Pain / Angina, Diabetes Mellitus, GERD/Reflux, Hyperlipidemia, Hypertension, Musculoskeletal Disorder, Osteoarthritis (OA) Additional Past Medical History / Comment(s): Constant, uncontollable vomiting and diarrhea X3 months. HERNIATED DISCS, ARTHRITIS WITH BACK PAIN, Migraines. History of Any Multi-Drug Resistant Organisms: None Reported Past Surgical History: Cholecystectomy, Heart Catheterization, Hysterectomy, Tonsillectomy Additional Past Surgical History / Comment(s): CYST REMOVED FROM ABDOMIN DURING HYSTERECTOMY, sinus surgery, colonoscopies, bilateral cataract surgery. Past Anesthesia/Blood Transfusion Reactions: No Reported Reaction Past Psychological History: No Psychological Hx Reported Smoking Status: Current every day smoker - Past Family History Father Family Medical History: Coronary Artery Disease (CAD) Additional Family Medical History / Comment(s): Triple bypass, stents. Mother Family Medical History: Cancer, Hypertension Additional Family Medical History / Comment(s): BREAST, COLON AND LUNG CANCER. Brother(s) Family Medical History: Myocardial Infarction (ME) Additional Family Medical History / Comment(s): Stents. General Exam Limitations: no limitations General appearance: alert, in no apparent distress, anxious Head exam: Present: atraumatic, normocephalic, normal inspection Eye exam: Present: normal appearance, PERRL, EOMI. Absent: scleral icterus, conjunctival injection, periorbital swelling ENT exam: Present: normal exam, mucous membranes moist Neck exam: Present: normal inspection. Absent: tenderness, meningismus, lymphadenopathy Respiratory exam: Present: normal lung sounds bilaterally. Absent: respiratory distress, wheezes, rales, rhonchi, stridor Cardiovascular Exam: Present: regular rate, normal rhythm, normal heart sounds. Absent: systolic murmur, diastolic murmur, rubs, gallop, clicks GI/Abdominal exam: Present: soft, normal bowel sounds. Absent: distended, tenderness, guarding, rebound, rigid Extremities exam: Present: normal inspection, full ROM, normal capillary refill. Absent: tenderness, pedal edema, joint swelling, calf tenderness Back exam: Present: normal inspection Neurological exam: Present: alert, oriented X3, CN II-XII intact Psychiatric exam: Present: normal affect, normal mood Skin exam: Present: warm, dry, intact, normal color. Absent: rash Course Vital Signs 01/01/25 01/01/25 01/01/25 20:07 21:02 23:08 Temperature 97.8 F Pulse Rate 72 68 71 Respiratory 18 18 18 Rate Blood Pressure 170/83 140/69 125/56 O2 Sat by Pulse 95 99 98 Oximetry 01/02/25 01/02/25 01/02/25 03:00 07:20 10:18 Temperature 98.3 F Pulse Rate 58 L 54 L 53 L Respiratory 18 18 16 Rate Blood Pressure 119/58 126/65 128/67 O2 Sat by Pulse 97 98 Oximetry 01/02/25 12:19 Temperature 98.4 F Pulse Rate 61 Respiratory 18 Rate Blood Pressure 127/63 O2 Sat by Pulse 98 Oximetry - Reevaluation(s) Reevaluation #1: 01/01/25 20:22 Medical records reviewed Reevaluation #2: 01/01/25 21:53 No recurrent syncope here in the ER Patient has persistent chest pain here in the ER Reevaluation #3: 01/01/25 21:53 Patient informed of results questions answered Reevaluation #4: Was pt. sent in by a medical professional or institution (, PA, CONCR[employer]E [employer]ER, urgent care, hospital, or [facility]...) When possible be specific @ -no Did you speak to anyone other than the patient for history (EMS, parent, family, police, friend...)? What history was obtained from this source @ -no Did you review nursing and triage notes (agree or disagree)? Why? @ -agree Are old charts reviewed (outside hosp., previous admission, EMS record, old EKG, old radiological studies, urgent care reports/EKG's, [facility] records)? Report findings @ -yes Differential Diagnosis (chest pain, altered mental status, abdominal pain women, abdominal pain men, vaginal bleeding, weakness, fever, dyspnea, syncope, headache, dizziness, GI bleed, back pain, seizure, CVA, palpatations, mental health, musculoskeletal)? @ -prior EKG interpreted by me (3pts min.). @ -yes X-rays interpreted by me (1pt min.). @ -yes negative for acute disease CT interpreted by me (1pt min.). @ -Yes negative for acute disease U/S interpreted by me (1pt. min.). @ -no What testing was considered but not performed or refused? (CT, X-rays, U/S, lab s)? Why? @ -none What meds were considered but not given or refused? Why? @ -none Did you discuss the management of the patient with other professionals (professionals i.e. Dr., PA, CONCRETE [employer]KER, lab, RT, psych nurse, social sciences chair, hypertrichologist, teacher, state wildlife officer, community case manager)? Give summary @ -no Was smoking cessation discussed for >3mins.? @ -no Was critical care preformed (if so, how long)? @ -yes31 Were there social determinants of health that impacted care today? How? (Homelessness, low income, unemployed, alcoholism, drug addiction, transportation, low edu. Level, literacy, decrease access to med. care, fdc, rehab)? @ -none Was there de-escalation of care discussed even if they declined (Discuss DNR or withdrawal of care, Hospice)? DNR status @ -no What co-morbidities impacted this encounter? (DM, HTN, Smoking, COPD, CAD, Cancer, CVA, ARF, Chemo, Hep., AIDS, mental health diagnosis, sleep apnea, morbid obesity)? @ -none Was patient admitted / discharged? Hospital course, mention meds given and route, prescriptions, significant lab abnormalities, going to OR and other pertinent info. @ - 59 female will be admitted for chest pain observation and syncopal event. Syncopal event occurred just prior to arrival this was followed by chest pain left-sided chest pain, patient has been feeling unwell for about 3 days Admitted Undiagnosed new problem with uncertain prognosis? @ -no Drug Therapy requiring intensive monitoring for toxicity (Heparin, Nitro, Insulin, Cardizem)? @ -no Were any procedures done? @ -no Diagnosis/symptom? @ -Chest pain with syncope Acute, or Chronic, or Acute on Chronic? @ -Acute Uncomplicated (without systemic symptoms) or Complicated (systemic symptoms)? @ -Complicated Side effects of treatment? @ -no Exacerbation, Progression, or Severe Exacerbation? @ -exacerbation Poses a threat to life or bodily function? How? (Chest pain, USA, ME, pneumonia, PE, COPD, DKA, ARF, appy, cholecystitis, CVA, Diverticulitis, Homicidal, Suicidal, threat to staff... and all critical care pts) @ -yes with near syncopal event and chest pain Reevaluation #5: Differential Syncope: Valvular disease, hypertrophic cardiomyopathy, pulmonary embolism, tamponade, tachycardia, bradycardia, ME, hypovolemia, hemorrhage, dissection, anemia, intracranial hemorrhage, seizure, hypoglycemia, carbon monoxide poisoning, this is not meant to be an all-inclusive list. Differential Chest Pain: Stable Angina, Unstable Angina, STEMI, NSTEMI Aortic Dissection, Pneumothorax, Musculoskeletal, Esophageal Spasm GERD, Cholecystitis, Pancreatitis, Zoster, this is not meant to be an all-inclusive list. - Consultations Consultation #1: Spoke with [facility] who agrees to admit this patient Chest Pain MDM - MDM 59 female will be admitted for chest pain observation and syncopal event. Syncopal event occurred just prior to arrival this was followed by chest pain left-sided chest pain, patient has been feeling unwell for about 3 days Critical Care Time Critical Care Time: Yes Total Critical Care Time: 31 Disposition Clinical Impression: Chest pain, Unstable angina pectoris, Syncope Disposition: ADMITTED IP TO THIS HOSP Condition: Fair Is patient prescribed a controlled substance at d/c from ED?: No Time of Disposition: 22:00
[2025-01-01 20:37] LABS: Basophils % (A) 0 %; Eosinophils # (A) 0.2 k/uL (0-0.7); Eosinophils % (A) 2 %; HCT 41.8 % (34.0-46.0); Lymphocytes # (A) 2.9 k/uL (1.0-4.8); Lymphocytes % (A) 39 %; MCH 30.5 pg (25.0-35.0); MCHC 33.6 g/dL (31.0-37.0); MCV 90.8 fL (80.0-100.0); Mean Platelet Volume 8.2; Monocytes # (A) 0.4 k/uL (0-1.0); Monocytes % (A) 5 %; Neutrophils # (A) 3.8 k/uL (1.3-7.7); Neutrophils % (A) 51 %; Platelet Count 272 k/uL (150-450); RDW 13.4 % (11.5-15.5); WBC 7.5 k/uL (3.8-10.6)
[2025-01-01 20:50] LABS: ALT 23 U/L (4-34); AST 20 U/L (14-36); African American GFR (CKD) >90 (>60 ml/min/1.73 sqM); Albumin 4.4 g/dL (3.5-5.0); Alkaline Phosphatase 90 U/L (38-126); Anion Gap 8 mmol/L; Blood Urea Nitrogen 16 mg/dL (7-17); Calcium 9.5 mg/dL (8.4-10.2); Carbon Dioxide 25 mmol/L (22-30); Chloride 104 mmol/L (98-107); Glucose 170 mg/dL (74-99); Lipase 53 U/L (23-300); Magnesium 2.3 mg/dL (1.6-2.3); Non-African American GFR(CKD) >90 (>60 ml/min/1.73 sqM); Potassium 4.5 mmol/L (3.5-5.1); Sodium 137 mmol/L (137-145); Total Bilirubin 0.6 mg/dL (0.2-1.3); Total Protein 6.6 g/dL (6.3-8.2)
[2025-01-01 20:53] LABS: INR 0.9 (<1.2)
[2025-01-01 20:56] LABS: Partial Thromboplastin Time 21.7 sec (22.0-30.0)
[2025-01-01 20:57] LABS: NT-Pro-B-Type Natriuretic Pept 186 pg/mL
[2025-01-01] MEDS: SODIUM CHLORIDE 0.9% 1,000 ML IV ONE (21:19)
--- NOTE | 2025-01-01 21:27 | XR ---
EXAMINATION TYPE: XR chest 2V DATE OF EXAM: 01/01/2025 8:56 PM COMPARISON: Chest radiographs from 04/25/2021 CLINICAL INDICATION: Female, 59 years old with history of Chest Pain; [facility] TECHNIQUE: XR chest 2V Frontal and lateral views of the chest. FINDINGS: Lungs/Pleura: There is no evidence of pleural effusion, focal consolidation, or pneumothorax. Pulmonary vascularity: Unremarkable. Heart/mediastinum: Cardiomediastinal silhouette is unremarkable. Musculoskeletal: No acute osseous pathology. IMPRESSION: No acute cardiopulmonary disease/process. [facility], , 01/01/2025 9:25 PM
[2025-01-01] MEDS ORDERED: NALOXONE 0.4 MG/ML 1 ML VIAL IV PRN (21:51)
--- NOTE | 2025-01-01 21:51 | CT ---
EXAMINATION TYPE: CT angio chest DATE OF EXAM: 01/01/2025 9:35 PM COMPARISON: Chest radiograph from same day. CLINICAL INDICATION: Female, 59 years old with history of pain; pt arrives to ED via EMS for c/o ches t pain and SOB. syncopal episode approx 2 hours. TECHNIQUE/CONTRAST: CTA scan of the thorax is performed with IV Contrast, patient injected with 100ml mL of Isovue 370, M IP images are created and reviewed these are created on a separate workstation.. CT DLP: 303.3 mGycm, Automated exposure control for dose reduction was used. FINDINGS: Lungs/Pleura: No evidence of focal consolidation, pleural effusion or pneumothorax. Airway: Large airways are patent. Heart: Size within normal limits. No significant coronary artery calcifications. Vasculature: There is no evidence for a filling defect within the pulmonary vasculature to suggest ac kvng pulmonary embolism. The pulmonary artery is of normal size. Mediastinum: No gross evidence of adenopathy. Musculoskeletal: Mild disc degeneration changes are present throughout the thoracolumbar spine second lesley to osteophyte formation and facet joint arthropathy. Soft Tissues/lymph nodes: Unremarkable. Lower neck: No significant findings. Upper Abdomen: Gallbladder surgically absent. Small splenule present. IMPRESSION: 1. No evidence of pulmonary embolism. Follow up recommendations for incidental pulmonary nodules, if there are any, are per [employer] [employer] or [employer] [place] [employer]. https://radiopaedia.org/articles/glnswgegmw-[email or web address]?lang=us [facility], , 01/01/2025 9:49 PM
[2025-01-01] MEDS: SODIUM CHLORIDE 0.9% 1,000 ML IV SCH (22:06)
[2025-01-02] MEDS: ONDANSETRON 4 MG/2 ML VIAL IVP PRN (00:57)
[2025-01-02 01:41] LABS: Influenza A Not Detected (Not Detectd); Influenza B Not Detected (Not Detectd); RSV Not Detected (Not Detectd)
[2025-01-02] MEDS: ACETAMINOPHEN TAB 325 MG TAB PO PRN (03:19)
[2025-01-02 03:22] LABS: Basophils % (A) 0 %; Eosinophils # (A) 0.1 k/uL (0-0.7); Eosinophils % (A) 3 %; HCT 36.1 % (34.0-46.0); HGB 11.9 gm/dL (11.4-16.0); Lymphocytes # (A) 2.7 k/uL (1.0-4.8); Lymphocytes % (A) 52 %; MCH 30.5 pg (25.0-35.0); MCHC 33.1 g/dL (31.0-37.0); MCV 92.3 fL (80.0-100.0); Mean Platelet Volume 8.2; Monocytes # (A) 0.2 k/uL (0-1.0); Monocytes % (A) 5 %; Neutrophils # (A) 1.9 k/uL (1.3-7.7); Neutrophils % (A) 36 %; Platelet Count 200 k/uL (150-450); RBC 3.91 m/uL (3.80-5.40); RDW 13.5 % (11.5-15.5); WBC 5.1 k/uL (3.8-10.6)
[2025-01-02 03:32] LABS: ALT 19 U/L (4-34); AST 19 U/L (14-36); African American GFR (CKD) >90 (>60 ml/min/1.73 sqM); Albumin 3.3 g/dL (3.5-5.0); Alkaline Phosphatase 66 U/L (38-126); Anion Gap 7 mmol/L; Blood Urea Nitrogen 14 mg/dL (7-17); Calcium 8.7 mg/dL (8.4-10.2); Carbon Dioxide 22 mmol/L (22-30); Chloride 107 mmol/L (98-107); Glucose 128 mg/dL (74-99); Non-African American GFR(CKD) >90 (>60 ml/min/1.73 sqM); Phosphorus 2.7 mg/dL (2.5-4.5); Sodium 136 mmol/L (137-145); Total Bilirubin 0.3 mg/dL (0.2-1.3); Total Protein 5.2 g/dL (6.3-8.2)
[2025-01-02] MEDS ORDERED: diphenhydrAMINE 25 MG CAP PO PRN (07:30)
[2025-01-02] MEDS ORDERED: DOBUTamine DRIP for NUC MED 500 MG in DEXTROSE/WATER 1 250ML.BAG IV PRN (07:37)
[2025-01-02] MEDS: IBUPROFEN 400 MG TAB PO STA (07:41)
--- NOTE | 2025-01-02 09:25 | P.CRDCN ---
History of Present Illness History of present illness: HISTORY OF PRESENT ILLNESS: This is a 59-year-old female with a past medical history significant for hypertension, diabetes, and nicotine dependence. Patient used to follow in the office with Dr. Hernandez but has not been seen since 2020. We have been asked to see the patient in consultation for chest pain. Patient examined at the bedside in the emergency room. Patient states yesterday she took a nap and woke up with chest discomfort. She states the pain is in the middle of her chest. She denied any radiation of the pain. She reports she has been having this pain on and off for the past 3 months. She describes it as a pressure type sensation. She also reports associated shortness of breath. She states that she got up to go to the bathroom and then had a syncopal episode. She reports that her arms and legs feel very swollen. She continues to repeat " I know my body and something is not right". Patient does report that she quit smoking 3 days ago and she thinks she is having nicotine withdrawal DIAGNOSTICS: - EKG reveals sinus mechanism with right bundle branch block. - Chest xray negative for acute process. - Chest CTA: Negative for pulmonary embolism. Heart within normal size. No significant coronary artery calcifications. - Laboratory data: WBC 5.1. Hemoglobin 11.9. Platelet count 200. Sodium 136. Potassium 4.0. BUN 14. Creatinine 0.50. Magnesium 2.0. Troponin negative x 3. proBNP 186. - Current home cardiac medications include lisinopril 20 mg daily. - Most recent echocardiogram obtained in 2016 revealed ejection fraction 55 to 60% with mild MR and mild TR - Patient underwent stress echocardiogram in May 2023 which was negative for ischemia - Patient underwent cardiac catheterization in 2014 revealing small diagonal of 1 mm in caliber which has about 60% stenosis of the comes off the LAD. Otherwise no significant disease noted. REVIEW OF SYSTEMS: At the time of my exam: CONSTITUTIONAL: Denies fever or chills. HEENT: Denies blurred vision, vision changes, or eye pain. Denies hemoptysis CARDIOVASCULAR: Denies chest pain. Denies orthopnea. Denies PND. Denies palpitations RESPIRATORY: Denies shortness of breath. GASTROINTESTINAL: Denies abdominal pain. Denies nausea or vomiting. HEMATOLOGIC: Denies bleeding disorders. GENITOURINARY: Denies any blood in urine. SKIN: Denies pruitis. Denies rash. PHYSICAL EXAM: VITAL SIGNS: Reviewed. GENERAL: Well-developed in no acute distress. HEENT: Head is normocephalic. Pupils are equal, round. Sclerae anicteric. Mucous membranes of the mouth are moist. Neck supple. No JVD or thyromegaly LUNGS: Respirations even and unlabored. Lungs essentially clear to auscultation bilaterally. HEART: Regular rate and rhythm. S1 and S2 heard. ABDOMEN: Soft. Nondistended. Nontender. EXTREMITIES: Normal range of motion. No clubbing or cyanosis. Peripheral pulses intact. No lower extremity edema NEUROLOGIC: Awake and alert. Oriented x 3. ASSESSMENT: Chest pain History of hypertension History of diabetes Nicotine dependence, patient quit smoking 3 days ago PLAN: An acute coronary event has been ruled out Obtain 2D echo to assess cardiac structure and function Resume home cardiac medications Patient to undergo dobutamine stress echo today If negative, she may be discharged home from a cardiac standpoint Nurse practitioner note has been reviewed by physician. Signing provider agrees with the documented findings, assessment, and plan of care documented by ANIMAL CONTROL OFFICER as a scribe. Past Medical History Past Medical History: Chest Pain / Angina, Diabetes Mellitus, GERD/Reflux, Hyperlipidemia, Hypertension, Musculoskeletal Disorder, Osteoarthritis (OA) Additional Past Medical History / Comment(s): Constant, uncontollable vomiting and diarrhea X3 months. HERNIATED DISCS, ARTHRITIS WITH BACK PAIN, Migraines. History of Any Multi-Drug Resistant Organisms: None Reported Past Surgical History: Cholecystectomy, Heart Catheterization, Hysterectomy, Tonsillectomy Additional Past Surgical History / Comment(s): CYST REMOVED FROM ABDOMIN DURING HYSTERECTOMY, sinus surgery, colonoscopies, bilateral cataract surgery. Past Anesthesia/Blood Transfusion Reactions: No Reported Reaction Past Psychological History: No Psychological Hx Reported Smoking Status: Current every day smoker - Past Family History Father Family Medical History: Coronary Artery Disease (CAD) Additional Family Medical History / Comment(s): Triple bypass, stents. Mother Family Medical History: Cancer, Hypertension Additional Family Medical History / Comment(s): BREAST, COLON AND LUNG CANCER. Brother(s) Family Medical History: Myocardial Infarction ([place]) Additional Family Medical History / Comment(s): Stents. Medications and Allergies Home Medications Medication Instructions Recorded Confirmed Type Dapagliflozin Propanediol [Farxiga] 10 mg PO DAILY 01/02/25 01/02/25 History HYDROcodone/APAP 10-325MG [[place] 1 tab PO BID 01/02/25 01/02/25 History 10-325] lisinopriL [Zestril] 20 mg PO DAILY 01/02/25 01/02/25 History Allergies Allergy/AdvReac Type Severity Reaction Status Date / Time codeine Allergy Dyspnea/Hea Verified 01/02/25 08:07 rtburn morphine Allergy Dyspnea/Hea Verified 01/02/25 08:07 rtburn penicillin V Allergy lip Verified 01/02/25 08:07 swelling Physical Exam Vitals: Vital Signs Temp Pulse Resp BP Pulse Ox 01/02/25 07:20 98.3 F 54 L 18 126/65 97 01/02/25 03:00 58 L 18 119/58 01/01/25 23:08 71 18 125/56 98 01/01/25 21:02 68 18 140/69 99 01/01/25 20:07 97.8 F 72 18 170/83 95 Intake and Output 01/01/25 01/02/25 01/02/25 22:59 06:59 14:59 Other: Weight 77.111 kg Results 01/02/25 03:00 01/02/25 03:00 Cardiac Enzymes 01/01/25 01/01/25 01/02/25 Range/Units 20:26 20:26 00:14 AST 20 (14-36) U/L Troponin I <0.012 <0.012 (0.000-0.034) ng/mL 01/02/25 01/02/25 Range/Units 03:00 03:00 AST 19 (14-36) U/L Troponin I <0.012 (0.000-0.034) ng/mL Coagulation 01/01/25 Range/Units 20:26 PT 10.0 (10.0-12.5) sec APTT 21.7 L (22.0-30.0) sec CBC 01/01/25 01/02/25 Range/Units 20:26 03:00 WBC 7.5 5.1 (3.8-10.6) k/uL RBC 4.60 3.91 (3.80-5.40) m/uL Hgb 14.0 11.9 (11.4-16.0) gm/dL Hct 41.8 36.1 (34.0-46.0) % Plt Count 272 200 (150-450) k/uL Comprehensive Metabolic Panel 01/01/25 01/02/25 Range/Units 20:26 03:00 Sodium 137 136 L (137-145) mmol/L Potassium 4.5 4.0 (3.5-5.1) mmol/L Chloride 104 107 (98-107) mmol/L Carbon Dioxide 25 22 (22-30) mmol/L BUN 16 14 (7-17) mg/dL Creatinine 0.66 0.50 L (0.52-1.04) mg/dL Glucose 170 H 128 H (74-99) mg/dL Calcium 9.5 8.7 (8.4-10.2) mg/dL AST 20 19 (14-36) U/L ALT 23 19 (4-34) U/L Alkaline Phosphatase 90 66 (38-126) U/L Total Protein 6.6 5.2 L (6.3-8.2) g/dL Albumin 4.4 3.3 L (3.5-5.0) g/dL Current Medications Generic Name Dose Route Start Last Admin Trade Name Freq PRN Reason Stop Dose Admin Acetaminophen 650 mg 01/02/25 03:09 01/02/25 03:19 Acetaminophen Tab 325 Mg Tab PO 650 mg Q6HR PRN Administration Fever and/ or Pain Diphenhydramine HCl 25 mg 01/02/25 07:30 Diphenhydramine 25 Mg Cap PO BID PRN Itching Sodium Chloride 1,000 mls @ 75 mls/hr 01/01/25 22:00 01/01/25 22:06 Saline 0.9% IV 75 mls/hr .[id number] RAMIRO Administration Dobutamine HCl/Dextrose 500 mg 250 mls @ 23.133 mls/hr 01/02/25 07:37 / IV Solution IV 01/02/25 11:37 .[id number] PRN Per Protocol Protocol 10 MCG/KG/MIN Naloxone HCl 0.2 mg 01/01/25 21:51 Naloxone 0.4 Mg/Ml 1 Ml Vial IV Q2M PRN Opioid Reversal Ondansetron HCl 4 mg 01/01/25 21:51 01/02/25 00:57 Ondansetron 4 Mg/2 Ml Vial IVP 4 mg Q8HR PRN Administration Nausea And Vomiting Intake and Output 01/01/25 01/02/25 01/02/25 22:59 06:59 14:59 Other: Weight 77.111 kg 01/02/25 03:00 01/02/25 03:00
[2025-01-02] MEDS: lisinopriL 20 MG TAB PO SCH (10:19)
[2025-01-02] MEDS: HYDROcodone/APAP 5-325MG 1 EACH TAB PO ONE (14:00)
--- NOTE | 2025-01-02 17:05 | CA ---
Transthoracic Echo Report Name: Drea Boss Age: 59 Gender: F : 1965 Exam Date: 01/02/2025 11:27 Exam Location: [facility] Ht (in): 70 Wt (lb): 170 Ordering Physician: Daksha Hernandez Attending/Referring Phys: [id number], [facility] Mariama Montalvo RDCS Procedure CPT: Indications: CP Cardiac Hx: Technical Quality: Good Contrast 1: Definity Total Dose (mL): 2 Contrast 2: Total Dose (mL): MEASUREMENTS (Male / Female) Normal Values 2D ECHO LV Diastolic Diameter PLAX 4.8 cm 4.2 - 5.9 / 3.9 - 5.3 cm IVS Diastolic Thickness 1.2 cm 0.6 - 1.0 / 0.6 - 0.9 cm LVPW Diastolic Thickness 1.2 cm 0.6 - 1.0 / 0.6 - 0.9 cm LV Relative Wall Thickness 0.5 RV Internal Dim ED PLAX 3.2 cm LVOT Diameter 1.7 cm LV Diastolic Volume MOD BP 119.5 cm??? 67 - 155 / 56 - 104 cm??? LV Systolic Volume MOD BP 34.7 cm??? 22 - 58 / 19 - 49 cm??? LV Ejection Fraction MOD BP 70.9 % >= 55 % LV Cardiac Index MOD BP 2987.2 cm???/min???m??? LV Diastolic Volume MOD 4C 116.5 cm??? LV Systolic Volume MOD 4C 36.8 cm??? LV Ejection Fraction MOD 4C 68.4 % LV Cardiac Index MOD 4C 2809.0 cm???/min???m??? LV Diastolic Length 4C 7.8 cm LV Systolic Length 4C 5.7 cm LV Diastolic Volume MOD 2C 118.3 cm??? LV Systolic Volume MOD 2C 32.4 cm??? LV Ejection Fraction MOD 2C 72.6 % LV Cardiac Index MOD 2C 3026.3 cm???/min???m??? LV Diastolic Length 2C 8.1 cm LV Systolic Length 2C 5.9 cm LA Volume 71.0 cm??? 18 - 58 / 22 - 52 cm??? LA Volume Index 36.2 cm???/m??? 16 - 28 cm???/m??? M-MODE LV Diastolic Diameter MM 5.9 cm 4.2 - 5.9 / 3.9 - 5.3 cm IVS Diastolic Thickness MM 1.0 cm 0.6 - 1.0 / 0.6 - 0.9 cm LVPW Diastolic Thickness MM 1.0 cm 0.6 - 1.0 / 0.6 - 0.9 cm LV Relative Wall Thickness MM 0.4 0.24 - 0.42 / 0.22 - 0.42 LV Mass Index MM 129.3 g/m??? 49 - 115 / 43 - 95 g/m??? DOPPLER MV Area PHT 3.3 cm??? Mitral E Point Velocity 67.0 cm/s Mitral A Point Velocity 62.1 cm/s Mitral E to A Ratio 1.1 MV Deceleration Time 228.3 ms TR Peak Velocity 230.9 cm/s TR Peak Gradient 21.3 mmHg Right Atrial Pressure 15.0 mmHg Pulmonary Artery Systolic Pressu 36.3 mmHg Right Ventricular Systolic Press 36.3 mmHg FINDINGS Left Ventricle Left ventricular ejection fraction is estimated at 60-65%. Normal left ventricular systolic function with no obvious regional wall motion abnormalities. Mild concentric left ventricular hypertrophy. Can't role out VSD. Right Ventricle Normal right ventricular size and function. Mild pulmonary hypertension. Right Atrium Moderate right atrial dilatation. Left Atrium Moderately increased left atrial volume. Mildly increased left atrial area. Mitral Valve Structurally normal mitral valve. No mitral stenosis. Mild mitral regurgitation. Aortic Valve Trileaflet aortic valve. No aortic valve stenosis or regurgitation. Tricuspid Valve Structurally normal tricuspid valve. No tricuspid stenosis. Trace tricuspid regurgitation. Pulmonic Valve Structurally normal pulmonic valve. No pulmonic stenosis. No pulmonic regurgitation. Pericardium No pericardial effusion. No pleural effusion. Aorta Normal size aortic root and proximal ascending aorta. CONCLUSIONS Normal LV function Mild pulmonary hypertension Previewed by: Dr. Desmond Gaitan MD (Electronically Signed) Final Date: 02 January 2025 17:04
--- NOTE | 2025-01-03 01:21 | P.HPIM ---
History of Present Illness H&P Date: 01/02/25 Chief Complaint: Chest pain and syncopal episode Ms. Boss is a 59-year-old female with a past medical history of GERD, hypertension, hyperlipidemia, osteoarthritis with a chief complaint chest pain syncopal episode. Patient states that she felt a pain in her chest since she went to the bathroom and coming out of the bathroom she had a fall. So she called her who found her on the floor. She states that she did not lose her consciousness and she was aware of her trying to help her. She was also having headaches for the past 3 days as she quit smoking. Patient states that she was having nausea vomiting and diarrhea 1 week back for 2 to 3 days and her symptoms are slowly resolving. Currently she denies having any more chest pain. No difficulty in breathing. She denies having any swelling of her lower extremities. No fevers chills or rigors. No joint pains or swelling. In the ER patient's vital signs at the time of admission. Including electrolytes and CBC within normal limits. Troponin less than 0.012 x 3 and she is negative for influenza, RSV, COVID. Patient was evaluated by cardiology had a dobutamine stress echo done results of which are pending. Review of Systems CONSTITUTIONAL: No fever, no malaise, no fatigue. HEENT: No recent visual problems or hearing problems. Denied any sore throat. CARDIOVASCULAR: HPI . PULMONARY: No shortness of breath, no cough, no hemoptysis. GASTROINTESTINAL: No diarrhea, no nausea, no vomiting, no abdominal pain. NEUROLOGICAL: No headaches, no weakness, no numbness. HEMATOLOGICAL: Denies any bleeding or petechiae. GENITOURINARY: Denies any burning micturition, frequency, or urgency. MUSCULOSKELETAL/RHEUMATOLOGICAL: Denies any joint pain, swelling, or any muscle pain. ENDOCRINE: Denies any polyuria or polydipsia. Past Medical History Past Medical History: Chest Pain / Angina, Diabetes Mellitus, GERD/Reflux, Hyperlipidemia, Hypertension, Musculoskeletal Disorder, Osteoarthritis (OA) Additional Past Medical History / Comment(s): Constant, uncontollable vomiting and diarrhea X3 months. HERNIATED DISCS, ARTHRITIS WITH BACK PAIN, Migraines. History of Any Multi-Drug Resistant Organisms: None Reported Past Surgical History: Cholecystectomy, Heart Catheterization, Hysterectomy, Tonsillectomy Additional Past Surgical History / Comment(s): CYST REMOVED FROM ABDOMIN DURING HYSTERECTOMY, sinus surgery, colonoscopies, bilateral cataract surgery. Past Anesthesia/Blood Transfusion Reactions: No Reported Reaction Past Psychological History: No Psychological Hx Reported Smoking Status: Current every day smoker Past Alcohol Use History: Rare Additional Past Alcohol Use History / Comment(s): STARTED SMOKING AT AGE 15, SMOKES < 1/2 PPD. Past Drug Use History: None Reported - Past Family History Father Family Medical History: Coronary Artery Disease (CAD) Additional Family Medical History / Comment(s): Triple bypass, stents. Mother Family Medical History: Cancer, Hypertension Additional Family Medical History / Comment(s): BREAST, COLON AND LUNG CANCER. Brother(s) Family Medical History: Myocardial Infarction ([place]) Additional Family Medical History / Comment(s): Stents. Medications and Allergies Home Medications Medication Instructions Recorded Confirmed Type Dapagliflozin Propanediol [Farxiga] 10 mg PO DAILY 01/02/25 01/02/25 History HYDROcodone/APAP 10-325MG [[place] 1 tab PO BID 01/02/25 01/02/25 History 10-325] lisinopriL [Zestril] 20 mg PO DAILY 01/02/25 01/02/25 History Allergies Allergy/AdvReac Type Severity Reaction Status Date / Time codeine Allergy Dyspnea/Hea Verified 01/02/25 08:07 rtburn morphine Allergy Dyspnea/Hea Verified 01/02/25 08:07 rtburn penicillin V Allergy lip Verified 01/02/25 08:07 swelling Physical Exam Vitals: Vital Signs Temp Pulse Pulse Resp BP BP Pulse Ox 01/02/25 13:55 98.8 F 46 L 16 100/54 99 01/02/25 12:19 98.4 F 61 18 127/63 98 01/02/25 10:18 53 L 16 128/67 98 01/02/25 07:20 98.3 F 54 L 18 126/65 97 01/02/25 03:00 58 L 18 119/58 01/01/25 23:08 71 18 125/56 98 01/01/25 21:02 68 18 140/69 99 01/01/25 20:07 97.8 F 72 18 170/83 95 Intake and Output 01/01/25 01/02/25 01/02/25 22:59 06:59 14:59 Other: Weight 77.111 kg 77.111 kg GENERAL: , not in any acute distress. HEENT: Pupils are round and equally reacting to light. EOMI. No scleral icterus. No conjunctival pallor. CARDIOVASCULAR: S1 and S2 present. No PULMONARY: Chest is clear to auscultation, no wheezing , no crackles. ABDOMEN: Soft, no tenderness normoactive bowel sounds. No palpable organomegaly. MUSCULOSKELETAL: No joint swelling or deformity. EXTREMITIES: No cyanosis, clubbing, or pedal edema. NEUROLOGICAL: Gross neurological examination did not reveal any focal deficits. SKIN: No rashes. no petechiae. Results CBC & Chem 7: 01/02/25 03:00 01/02/25 03:00 Labs: Abnormal Lab Results - Last 24 Hours (Table) 01/01/25 01/01/25 01/02/25 Range/Units 20:26 20:26 03:00 APTT 21.7 L (22.0-30.0) sec Sodium 136 L (137-145) mmol/L Creatinine 0.50 L (0.52-1.04) mg/dL Glucose 170 H 128 H (74-99) mg/dL Total Protein 5.2 L (6.3-8.2) g/dL Albumin 3.3 L (3.5-5.0) g/dL Assessment and Plan Assessment: ASSESSMENT Chest pain Syncopal episode Hypertension Hyperlipidemia Diabetes mellitus Osteoarthritis Nicotine dependence Possible nicotine withdrawal as she quit 3 days back Recent gastroenteritis PLAN: As the patient was having chest pain and had a syncopal episode and with multiple risk factors patient had a dobutamine stress echo that was negative. But the report also states cannot rule out VSD. Patient also had a CTA of the chest that was negative for PE. Patient has been restarted on home medications. Further recommendations to follow depending on the progress of the patient. Anticipate discharge in the next 24 hours.
--- NOTE | 2025-01-03 11:13 | P.PN ---
Subjective HISTORY OF PRESENT ILLNESS: This is a 59-year-old female with a past medical history significant for hypertension, diabetes, and nicotine dependence. Patient used to follow in the office with Dr. Hernandez but has not been seen since 2020. We have been asked to see the patient in consultation for chest pain. Patient examined at the bedside in the emergency room. Patient states yesterday she took a nap and woke up with chest discomfort. She states the pain is in the middle of her chest. She denied any radiation of the pain. She reports she has been having this pain on and off for the past 3 months. She describes it as a pressure type sensation. She also reports associated shortness of breath. She states that she got up to go to the bathroom and then had a syncopal episode. She reports that her arms and legs feel very swollen. She continues to repeat " I know my body and something is not right". Patient does report that she quit smoking 3 days ago and she thinks she is having nicotine withdrawal DIAGNOSTICS: - EKG reveals sinus mechanism with right bundle branch block. - Chest xray negative for acute process. - Chest CTA: Negative for pulmonary embolism. Heart within normal size. No significant coronary artery calcifications. - Laboratory data: WBC 5.1. Hemoglobin 11.9. Platelet count 200. Sodium 136. Potassium 4.0. BUN 14. Creatinine 0.50. Magnesium 2.0. Troponin negative x 3. proBNP 186. - Current home cardiac medications include lisinopril 20 mg daily. - Most recent echocardiogram obtained in 2016 revealed ejection fraction 55 to 60% with mild MR and mild TR - Patient underwent stress echocardiogram in May 2023 which was negative for ischemia - Patient underwent cardiac catheterization in 2014 revealing small diagonal of 1 mm in caliber which has about 60% stenosis of the comes off the LAD. Otherwise no significant disease noted. 01/03/2025 Patient examined bedside. Patient denies any further episodes of chest pain or shortness of breath. Echocardiogram completed revealing normal LV function and mild pulmonary pretension. Patient underwent dobutamine stress echo yesterday which was negative per Dr. Gaitan. PHYSICAL EXAM: VITAL SIGNS: Reviewed. GENERAL: Well-developed in no acute distress. HEENT: Head is normocephalic. Pupils are equal, round. Sclerae anicteric. Mucous membranes of the mouth are moist. Neck supple. No JVD or thyromegaly LUNGS: Respirations even and unlabored. Lungs essentially clear to auscultation bilaterally. HEART: Regular rate and rhythm. S1 and S2 heard. ABDOMEN: Soft. Nondistended. Nontender. EXTREMITIES: Normal range of motion. No clubbing or cyanosis. Peripheral pulses intact. No lower extremity edema NEUROLOGIC: Awake and alert. Oriented x 3. ASSESSMENT: Chest pain History of hypertension History of diabetes Nicotine dependence, patient quit smoking 3 days ago PLAN: Continue current cardiac medications Patient underwent dobutamine stress echo yesterday which was negative per Dr. Gaitan No further inpatient recommendations from a cardiac standpoint Discharge per medicine Nurse practitioner note has been reviewed by physician. Signing provider agrees with the documented findings, assessment, and plan of care documented by MISSING PERSONS INVESTIGATOR as a scribe. Objective - Vital Signs Vital signs: Vital Signs Temp 97.6 F 01/03/25 07:00 Pulse 61 01/03/25 07:00 Resp 17 01/03/25 07:00 BP 123/67 01/03/25 07:00 Pulse Ox 99 01/03/25 07:00 FiO2 Intake & Output 01/02/25 01/03/25 01/03/25 18:59 06:59 18:59 Weight 77.111 kg Other: # Voids 3 1 # Bowel Movements 0 - Labs CBC & Chem 7: 01/02/25 03:00 01/02/25 03:00
[2025-01-03] MEDS ORDERED: METOCLOPRAMIDE 5 MG/ML 2 ML VIAL IVP PRN (11:31)
[2025-01-03] MEDS ORDERED: ONDANSETRON 4 MG/2 ML VIAL IVP PRN (11:33)
--- NOTE | 2025-01-03 11:55 | XR ---
EXAMINATION TYPE: XR abdomen 1V DATE OF EXAM: 01/03/2025 11:50 AM CLINICAL INDICATION: Female, 59 years old with history of abdominal pain, n/v/d, pain TECHNIQUE: 2 supine images of the abdomen. COMPARISON: CT abdomen and pelvis October 31, 2019. FINDINGS: Gas is seen in nondistended stomach. Scattered gas is seen in non-distended small and large bowel loops. Stable 11 mm phlebolith in the right lower quadrant. Surgical sutures in the left pelvi s are redemonstrated. Lung bases are clear. Cholecystectomy clips are redemonstrated. Osseous structu res are intact. IMPRESSION: Overall nonobstructive bowel gas pattern. [facility], , 01/03/2025 11:53 AM
[2025-01-03] MEDS: DAPAGLIFLOZIN PROPANEDIOL 10 MG TABLET PO SCH (12:22)
[2025-01-03] MEDS: HYDROcodone/APAP 10-325MG 1 EACH TAB PO SCH (12:23)
[2025-01-03 15:07] VITALS: BP 132/69; PULSE 58; RESP 15; TEMP 98.4
[2025-01-03] MEDS: LOPERAMIDE 2 MG CAP PO STA (15:57)
--- NOTE | 2025-01-07 15:56 | P.DS ---
Providers Date of admission: 01/01/25 21:52 Expected date of discharge: 01/03/25 Attending physician: Divina Escalante Primary care physician: Danelle Olivia Hospital Course: Final diagnosis Chest pain, ruled out ACS, stress test was negative Pre-Syncopal episode, reports did not lose consciousness Hypertension Hyperlipidemia Diabetes mellitus Osteoarthritis Nicotine dependence Possible nicotine withdrawal as she quit 3 days back Recent gastroenteritis GI prophylaxis DVT prophylaxis Full code Discharge disposition Patient is being discharged in a stable condition with guarded prognosis to home. Patient will follow-up with Dr. Olivia in the outpatient setting upon discharge. Patient is to continue with current medications and outpatient follow-up with cardiology sis as scheduled. Total time taken is greater than 35 minutes. Hospital course This is a 59-year-old female who was recently admitted with multiple complaints including chest pain and falls and not feeling well with recent nausea, vomiting, diarrhea. Patient underwent thorough workup including cardiology evaluation and stress testing which was negative and had cleared the patient for discharge. Patient most likely with recent gastritis and also having withdrawal effects from recently quitting tobacco use. Recommend supportive care and outpatient follow-up with primary care provider. Patient to follow-up with cardiology outpatient per their recommendations. Please refer to cardiology consultation notes for further HPI. Currently no reports of chest pain, shortness of breath, or palpitations. Patient is afebrile. No reports of nausea or vomiting and patient is tolerating diet. Patient will be discharged home today. High risk for readmissions given continued ongoing symptoms with significant comorbidities. Physical exam: Gen: This is a 59-year-old female who is awake, alert and oriented x 3, well- developed, well-nourished HEENT: Head is atraumatic, normocephalic. Pupils equal, round. Sclerae is anicteric. NECK: Supple. No JVD. No lymphadenopathy. No thyromegaly. LUNGS: Clear to auscultation. No wheezes or rhonchi. No intercostal retractions. HEART: Regular rate and rhythm. No murmur. ABDOMEN: Soft. Bowel sounds are present. No masses. No tenderness. EXTREMITIES: No pedal edema. No calf tenderness. NEUROLOGICAL: Patient is awake, alert and oriented x3. Cranial nerves 2 through 12 are grossly intact. Please refer to medication reconciliation sheet for a list of medications. The impression and plan of care has been dictated by Libertad Logan, Nurse Practitioner as directed. Dr. Nolvia MD I have performed a history and examination and MDM of this patient, discussed the same with the dictator, and agree with the dictator's assessment and plan as written ,documented as a scribe. Based on total visit time, I have performed more than 50% of the visit. Patient Condition at Discharge: Fair Plan - Discharge Summary Discharge Rx Participant: No New Discharge Prescriptions: New Acetaminophen Tab [Tylenol] 650 mg PO Q6HR PRN tab PRN Reason: Fever And/ Or Pain Ondansetron Odt [Zofran Odt] 4 mg PO Q8HR PRN #20 tab PRN Reason: Nausea Continue HYDROcodone/APAP 10-325MG [[place] 10-325] 1 tab PO BID Dapagliflozin Propanediol [Farxiga] 10 mg PO DAILY lisinopriL [Zestril] 20 mg PO DAILY Discharge Medication List Dapagliflozin Propanediol [Farxiga] 10 mg PO DAILY 01/02/25 [History] HYDROcodone/APAP 10-325MG [[place] 10-325] 1 tab PO BID 01/02/25 [History] lisinopriL [Zestril] 20 mg PO DAILY 01/02/25 [History] Acetaminophen Tab [Tylenol] 650 mg PO Q6HR PRN tab 01/03/25 [Rx] Ondansetron Odt [Zofran Odt] 4 mg PO Q8HR PRN #20 tab 01/03/25 [Rx] Follow up Appointment(s)/Referral(s): Danelle Olivia DO [Primary Care Provider] - 1-2 days Desmond Gaitan MD [STAFF PHYSICIAN] - 2 Weeks Patient Instructions/Handouts: Chest Pain (DC), Acute Nausea and Vomiting (DC) Activity/Diet/Wound Care/Special Instructions: Activity limited until follow-up Follow-up with primary care provider on discharge Follow-up cardiology outpatient Continue with a clear liquid diet and/or full liquids and slowly advance as tolerated continue with Zofran as needed for nausea and vomiting Discharge Disposition: HOME SELF-CARE
== END 2025-01-03 16:07 | disposition home or self-care (01) ==
LOC: EC 19:59 → 6NMEDSUR 21:52
PROVIDERS: ADMIT Hospitalist; ATTEND Hospitalist
DX: R07.9 Chest pain, unspecified (principal); R55 Syncope and collapse; E11.9 Type 2 diabetes mellitus without complications; K21.9 Gastro-esophageal reflux disease without esophagitis; I10 Essential (primary) hypertension; E78.5 Hyperlipidemia, unspecified; M19.90 Unspecified osteoarthritis, unspecified site; F17.200 Nicotine dependence, unspecified, uncomplicated; Z11.52 Encounter for screening for COVID-19; Z79.84 Long term (current) use of oral hypoglycemic drugs; Z79.899 Other long term (current) drug therapy; Z88.0 Allergy status to penicillin; Z88.5 Allergy status to narcotic agent; Z82.49 Family history of ischemic heart disease and other diseases of the circulatory system
CPT/HCPCS: 96376 ×2; 96361; 96374; 99291; 36415; 93005; 93306; 93351; 83880; 80053 ×2; 83690; 83735 ×2; 84100; 84484 ×2; 85025 ×2; 85610; 85730; 87324; 87636; 71046; 74018; 71275; G0378 ×3; J2405 ×2; Q9957; Q9967; 99285